=== PATIENT | female | born 1945 | race Caucasian/White ===

== ENCOUNTER 2019-10-18 10:59 | Emergency (ER) | payer MEDICARE, OTHER, SELFPAY ==
[2019-10-18 11:28] VITALS: BP 141/60; PULSE 95; RESP 19; TEMP 36.8; O2SAT 93; BMI 31.1
--- NOTE | 2019-10-18 11:36 | ED.LOWEXIN ---
HPI - Extremity Injury (Lower) General Chief Complaint: Extremity Injury, Lower Stated Complaint: Both ankles/ pain/ swollen Time Seen by Provider: 10/18/19 11:33 Source: patient and family Mode of arrival: Wheelchair Limitations: no limitations History of Present Illness HPI Narrative: 74-year-old female here for evaluation of bilateral lower extremity/ankle swelling. She states that yesterday she tripped while going down some stairs and rolled both of her ankles. They are swollen and discolored. Has broken her left ankle in the past. Was able to ambulate somewhat afterwards but since then she has not been able to secondary to pain. Has tried to ice her ankles. Is also use anti-inflammatories. Related Data Home Medications Medication Instructions Recorded Confirmed ALBUTEROL SULFATE (Ventolin / 1 - 2 puff INH PRN #0 05/27/10 Proventil) ASPIRIN (Aspirin Ec) 81 mg PO Q DAY #0 05/27/10 Atorvastatin Calcium (Lipitor) 40 mg PO HS #0 05/27/10 CALCIUM CARBONATE/VITAMIN D3 500 mg Q DAY #0 05/27/10 (Oyster Shell Calcium-Vit D Tab) CARVEDILOL (Coreg) 12.5 mg PO BID #0 05/27/10 CHOLECALCIFEROL (VITAMIN D3) 2,000 iu Q DAY #0 05/27/10 (Vitamin D3) Clopidogrel Hydrogen Sulfate 75 mg PO Q DAY #0 05/27/10 (Plavix) Conjugated Estrogens (Premarin) 0.625 mg PO Q DAY #0 05/27/10 DOCUSATE SODIUM (Colace / Jani) 240 mg PO BID #0 05/27/10 FENOFIBRATE (TRICOR) 160 mg HS #0 05/27/10 FOLIC ACID (Folate) 0.4 mg PO QDAY #0 05/27/10 HYDROCODONE/ACET 5/500 - 1 - 2 tab PO Q4-6H PRN #0 05/27/10 (Hydrocodon-Acetaminophen 5-500) IPRATROPIUM/ALBUTEROL SULFATE 2 puff INH PRN #0 05/27/10 (Combivent Inhaler) LISINOPRIL (Zestril / Prinivil) 5 mg PO BID #0 05/27/10 Lansoprazole (Prevacid) 30 mg BID #0 05/27/10 NITROGLYCERIN (Nitrostat) 0.4 mg SUBLINGUAL PRN #0 05/27/10 Niacin (Nicotinic Acid) 500 mg PO Q DAY #0 05/27/10 Nitroglycerin 2% - 0 gm TOPICAL * DOSE/FREQUENCY #0 05/27/10 (Nitrobid) Zinc Gluconate 50 mg PO Q DAY #0 05/27/10 Zolpidem Tartrate (Ambien) 10 mg PO HS #0 05/27/10 [FISH OIL OMEGA 3] BID #0 05/27/10 [PROBIOTIC ACIDIPHILU] Q DAY #0 05/27/10 [RELPAX] 40 mg PRN #0 05/27/10 [XOPENEX] #0 05/27/10 Allergies Allergy/AdvReac Type Severity Reaction Status Date / Time Sulfa (Sulfonamide Allergy Verified 10/18/19 13:23 Antibiotics) Review of Systems Constitutional Constitutional: Denies fever(s) Musculoskeletal Musculoskeletal: Denies tingling Comments: Bilateral ankle pain Integumentary/Breasts Comments: Bruising bilateral ankles and feet Neurologic Neurologic: Denies tingling Comments: Difficulty walking Hematologic/Lymphatic Hematologic/Lymphatic: Denies easy bleeding Allergic/Immunologic Allergic/Immunologic: Denies urticaria Patient History Medical History Hyperlipidemia (Acute) Social History Smoking Status: Never smoker Smoking Status: Never smoker alcohol intake frequency: a few times a month Substance Use Type: does not use Exam Initial Vital Signs Initial Vital Signs: Vital Signs Temperature 98.3 F 10/18/19 11:28 Pulse Rate 95 H 10/18/19 11:28 Respiratory Rate 19 10/18/19 11:28 Blood Pressure 141/60 H 10/18/19 11:28 Pulse Oximetry 93 10/18/19 11:28 Const General: cooperative and comfortable Cardio Pulses: dorsalis pedis present bilaterally Skin Other: Bruising bilateral ankles from mid foot to just proximal to the ankle lateral aspect Neuro Sensory Exam: no sensory deficits noted Extrem Other: Tenderness to palpation throughout bilateral ankles and also proximal fibula is bilaterally. Psych Appearance: grossly normal and well kempt Procedures Orthopedic Splinting/Casting Injury #1: Side: right Lower Extremity Injury Location: ankle Lower Extremity Immobilizer: posterior splint, stirrup splint and Pj wrap Other Orthopedic Equipment: other Post splinting neuro exam: intact Post splinting vascular exam: intact Placed by: Provider Course Orders Ordered: ED Orders 10/18/19 11:35 XR ankle LT min 3V Stat XR ankle RT min 3V Stat XR tibia fibula LT 2V Stat XR tibia fibula RT 2V Stat 10/18/19 12:43 XR ankle RT 2V Stat Discontinued Medications Hydrocodone Bitart/Acetaminophen ([place] 5/325) 1 tab PO NOW ONE Stop: 10/18/19 13:21 Last Admin: 10/18/19 13:24 Dose: 1 tab Documented by: BRIAN Vital Signs Vital signs: Vital Signs - 8 hr 10/18/19 11:28 Temperature 98.3 F Pulse Rate 95 H Respiratory Rate 19 Blood Pressure 141/60 H Pulse Oximetry 93 MDM - Extremity Injury (Lower) Imaging Data right tib fib: Radiologist's Impression: [address] [address] XRay Report Signed Patient: Madeline Rodriguez#: [id number] : 6Acct:[id number] Age/Sex: 74 / FDate of Service: 10/18/19 Loc: ED Accession Number: [id number] Procedure: XR tibia fibula RT 2V Ordering Provider: Roque Lizarraga D.O. PROCEDURE: XR TIBIA FUBULA RT 2V INDICATIONS: prox fibula tenderness after fall TECHNIQUE: 2 views of the tibia and fibula were acquired. COMPARISON: None. FINDINGS: Bones: Distal fibular fracture extending to the articular surface. No other fractures or dislocations. No suspicious bone lesions. Soft tissues: No suspicious soft tissue calcifications or masses. IMPRESSION: Distal right fibular fracture extending to the articular surface. Dictated by: Laith Hoffmann M.D. on 10/18/2019 at 12:28 Approved by: Laith Hoffmann M.D. on 10/18/2019 at 12:28 left tib fib: Radiologist's Impression: [address] [address] XRay Report Signed Patient: Madeline Rodriguez#: [id number] : 6Acct:[id number] Age/Sex: 74 / FDate of Service: 10/18/19 Loc: ED Accession Number: [id number] Procedure: XR tibia fibula LT 2V Ordering Provider: Roque Lizarraga D.O. PROCEDURE: XR TIBIA FIBULA RT 2V INDICATIONS: prox fibula tenderness after fall TECHNIQUE: 2 views of the tibia and fibula were acquired. COMPARISON: None. FINDINGS: Bones: No fractures or dislocations. No suspicious bony lesions. Question intra-articular body at the knee. Soft tissues: No suspicious soft tissue calcifications or masses. IMPRESSION: No evidence acute bony abnormality of the left tibia and fibula. If clinical suspicion and/or symptoms persist, further assessment with repeat plain films, or advanced imaging (e.g., CT, MRI, or bone scan) may be helpful for further assessment. Dictated by: Laith Hoffmann M.D. on 10/18/2019 at 12:24 Approved by: Laith Hoffmann M.D. on 10/18/2019 at 12:28 right ankle: Radiologist's Impression: [place] [address] XRay Report Signed Patient: Elena Rodriguez#: [id number] : 6Acct:[id number] Age/Sex: 74 / FDate of Service: 10/18/19 Loc: ED Accession Number: [id number] Procedure: XR ankle RT min 3V Ordering Provider: Roque Lizarraga D.O. PROCEDURE: XR ANKLE RT MIN 3V INDICATIONS: pain sweling after fall TECHNIQUE: 3 views of the ankle were acquired. COMPARISON: None. FINDINGS: Bones: Oblique, mildly comminuted, minimally displaced distal fibular fracture extending to the articular surface. No other fractures or dislocations. Ankle mortise is normally aligned. No suspicious bony lesions. Soft tissues: No tibiotalar joint effusion. Achilles tendon appears normal. IMPRESSION: Distal fibular fracture extending to articular surface Dictated by: Laith Hoffmann M.D. on 10/18/2019 at 12:28 Approved by: Laith Hoffmann M.D. on 10/18/2019 at 12:29 left ankle: Radiologist's Impression: [address] [address] XRay Report Signed Patient: Lou RodriguezMike#: [id number] : 6Acct:[id number] Age/Sex: 74 / FDate of Service: 10/18/19 Loc: ED Accession Number: [id number] Procedure: XR ankle LT min 3V Ordering Provider: Roque Lizarraga D.O. PROCEDURE: XR ANKLE LT MIN 3V INDICATIONS: pain swelling after fall TECHNIQUE: 3 views of the ankle were acquired. COMPARISON: None. FINDINGS: Bones: No fractures or dislocations. Ankle mortise is normally aligned. No suspicious bony lesions. Soft tissues: No tibiotalar joint effusion. Achilles tendon appears normal. Lateral soft tissue swelling. IMPRESSION: Lateral ankle sprain. No evidence acute bony abnormality of the left ankle. If clinical suspicion and/or symptoms persist, further assessment with repeat plain films, or advanced imaging (e.g., CT, MRI, or bone scan) may be helpful for further assessment. Dictated by: Laith Hoffmann M.D. on 10/18/2019 at 12:31 Approved by: Laith Hoffmann M.D. on 10/18/2019 at 12:32 R ankle stress views: Radiologist's Impression: [place] [address] XRay Report Signed Patient: Elena Rodriguez#: [id number] : 6At:[id number] Age/Sex: 74 / FDate of Service: 10/18/19 Loc: ED Accession Number: [id number] Procedure: XR ankle RT 2V Ordering Provider: Roque Lizarraga D.O. PROCEDURE: XR ANKLE RT 2V INDICATIONS: fibula fx TECHNIQUE: 3 views of the ankle were acquired. COMPARISON: [facility], , XR ANKLE LT MIN 3V, 10/18/2019, 11:44. FINDINGS: Bones: There is a mild fracture of the distal fibular extending to the tibiofibular syndesmosis. There is associated mild syndesmotic widening as well as mild widening of the medial ankle mortise. No suspicious bony lesions. Soft tissues: There is a suspected small tibiotalar joint effusion. Achilles tendon appears intact. IMPRESSION: 1. Mildly displaced fracture of the distal fibula with associated syndesmotic extension. 2. Mild widening of the tibiofibular syndesmosis and medial ankle mortise suggestive of ligamentous injury. Dictated by: Navin Caballero M.D. on 10/18/2019 at 13:25 Approved by: Navin Caballero M.D. on 10/18/2019 at 13:36 MDM Narrative Medical decision making narrative: Neurovascularly intact, right distal fibula fracture. Discussed the case with Dr. Spangler with Orthopedics who recommended placing the patient nonweightbearing in a splint due to the fact that the stress view show that there potentially is a ligamentous injured splint was placed this described above. Patient was given care instructions and return precautions. She expressed understanding and agreement. Discharge Plan Departure Patient Disposition: Home Clinical Impression: Fracture of right fibula Qualifiers: Encounter type: initial encounter Fibula location: distal Fracture type: closed Fracture morphology: unspecified fracture morphology Qualified Code(s): S82.831A - Other fracture of upper and lower end of right fibula, initial encounter for closed fracture Left ankle sprain Qualifiers: Encounter type: initial encounter Involved ligament of ankle: unspecified ligament Qualified Code(s): S93.402A - Sprain of unspecified ligament of left ankle, initial encounter Instructions: DI for Ankle Fracture, How to Take Care of Your Splint Activity Restrictions/Additional Instructions: There is no fracture on the x-rays of your left ankle. You can walk on this leg as needed. I do recommend you keep it elevated and iced. The x-rays do show that you fractured your fibula on the right. Recommend you contact your primary provider and also the [facility] Orthopedics Department at [phone] for follow-up. Return to the emergency department for any new or worsening symptoms. Prescriptions: No Action DOCUSATE SODIUM (Colace / Jani) 240 mg PO BID Qty: 0 RF: 0 Lansoprazole (Prevacid) 30 mg BID Qty: 0 RF: 0 Atorvastatin Calcium (Lipitor) 40 mg PO HS Qty: 0 RF: 0 CARVEDILOL (Coreg) 12.5 mg PO BID Qty: 0 RF: 0 Conjugated Estrogens (Premarin) 0.625 mg PO Q DAY Qty: 0 RF: 0 LISINOPRIL (Zestril / Prinivil) 5 mg PO BID Qty: 0 RF: 0 Clopidogrel Hydrogen Sulfate (Plavix) 75 mg PO Q DAY Qty: 0 RF: 0 FENOFIBRATE (TRICOR) 160 mg HS Qty: 0 RF: 0 Zolpidem Tartrate (Ambien) 10 mg PO HS Qty: 0 RF: 0 CALCIUM CARBONATE/VITAMIN D3 (Oyster Shell Calcium-Vit D Tab) 500 mg Q DAY Qty: 0 RF: 0 [FISH OIL OMEGA 3] BID Qty: 0 RF: 0 CHOLECALCIFEROL (VITAMIN D3) (Vitamin D3) 2,000 iu Q DAY Qty: 0 RF: 0 FOLIC ACID (Folate) 0.4 mg PO QDAY Qty: 0 RF: 0 Niacin (Nicotinic Acid) 500 mg PO Q DAY Qty: 0 RF: 0 Zinc Gluconate 50 mg PO Q DAY Qty: 0 RF: 0 ASPIRIN (Aspirin Ec) 81 mg PO Q DAY Qty: 0 RF: 0 [PROBIOTIC ACIDIPHILU] Q DAY Qty: 0 RF: 0 HYDROCODONE/ACET 5/500 - (Hydrocodon-Acetaminophen 5-500) 1 - 2 tab PO Q4-6H PRN Qty: 0 RF: 0 NITROGLYCERIN (Nitrostat) 0.4 mg Sublingual PRN Qty: 0 RF: 0 [RELPAX] 40 mg PRN Qty: 0 RF: 0 Nitroglycerin 2% - (Nitrobid) 0 gm Topical * [place] DOSE/FREQUENCY Qty: 0 RF: 0 [XOPENEX] Qty: 0 RF: 0 ALBUTEROL SULFATE (Ventolin / Proventil) 1 - 2 puff INH PRN Qty: 0 RF: 0 IPRATROPIUM/ALBUTEROL SULFATE (Combivent Inhaler) 2 puff INH PRN Qty: 0 RF: 0 Referrals: Nas Manriquez DO [Primary Care Provider] -
--- NOTE | 2019-10-18 12:43 | DI.RAD.S_ITS ---
PROCEDURE: XR ANKLE RT 2V INDICATIONS: fibula fx TECHNIQUE: 3 views of the ankle were acquired. COMPARISON: [facility], CR, XR ANKLE LT MIN 3V, 10/18/2019, 11:44. FINDINGS: Bones: There is a mild fracture of the distal fibular extending to the tibiofibular syndesmosis. There is associated mild syndesmotic widening as well as mild widening of the medial ankle mortise. No suspicious bony lesions. Soft tissues: There is a suspected small tibiotalar joint effusion. Achilles tendon appears intact. IMPRESSION: 1. Mildly displaced fracture of the distal fibula with associated syndesmotic extension. 2. Mild widening of the tibiofibular syndesmosis and medial ankle mortise suggestive of ligamentous injury. Dictated by: Navin Caballero M.D. on 10/18/2019 at 13:25 Approved by: Navin Caballero M.D. on 10/18/2019 at 13:36
[2019-10-18] MEDS: HYDROCODONE/ACET 5/325 TABLET 1 TAB PO (13:24)
[2019-10-18 14:14] VITALS: BP 120/66; PULSE 78; O2SAT 98
== END 2019-10-18 14:15 | disposition home or self-care (01) ==
PROVIDERS: Emergency Provider Emergency Medicine; PCP Family Medicine
DX: S82.831A Other fracture of upper and lower end of right fibula, initial encounter for closed fracture (principal); S93.402A Sprain of unspecified ligament of left ankle, initial encounter; W18.40XA Slipping, tripping and stumbling without falling, unspecified, initial encounter
CPT/HCPCS: 29515; 73590; 73600; 73610; 99283; 99284

== ENCOUNTER → 2019-10-30 15:43 | Outpatient (CLI) | payer MEDICARE, OTHER, SELFPAY ==
--- NOTE | 2019-10-30 15:50 | DI.RAD.S_ITS ---
PROCEDURE: XR ANKLE RT MIN 3V INDICATIONS: CLOSED FRACTUR OF RIGHT ANKLE, INTIAL ECOUNTER TECHNIQUE: 3 views of the ankle were acquired. COMPARISON: [facility], CR, XR ANKLE RT 2V, 10/18/2019, 12:48. FINDINGS: Bones: There is interval cast placement over right ankle which obscures bony details. Oblique fracture involving distal fibular shaft is seen with minimal lateral displacement at fracture site. No new fractures or dislocations. Ankle mortise is normally aligned. No suspicious bony lesions. Soft tissues: No tibiotalar joint effusion. Achilles tendon appears normal. IMPRESSION: Minimally displaced distal fibular shaft fracture with interval cast placement over right ankle and foot and near anatomic alignment. Dictated by: Jadon Rodriguez M.D. on 10/30/2019 at 16:33 Approved by: Jadon Rodriguez M.D. on 10/30/2019 at 16:35
== END ==
PROVIDERS: PCP Family Medicine; Referring Provider Orthopaedic Surgery Adult Reconstructive Orthopaedic Surgery; Visit Provider Orthopaedic Surgery Adult Reconstructive Orthopaedic Surgery
DX: S82.431A Displaced oblique fracture of shaft of right fibula, initial encounter for closed fracture (principal); X58.XXXA Exposure to other specified factors, initial encounter
CPT/HCPCS: 73610

== ENCOUNTER → 2020-01-16 11:01 | Outpatient (CLI) | payer MEDICARE, OTHER, SELFPAY ==
[2020-01-16 12:17] LABS: COVID19 -Nasal RAPID Negative (Negative)
== END ==
PROVIDERS: PCP Family Medicine; Visit Provider Registered Nurse
DX: Z01.812 Encounter for preprocedural laboratory examination (principal)
CPT/HCPCS: 87635

== ENCOUNTER 2020-01-16 11:17 | Outpatient (CLI) | payer MEDICARE, OTHER, SELFPAY ==
[2020-01-16] VITALS (8 sets, daily range): BP systolic 87–124; BP diastolic 49–78; PULSE 73–85; RESP 12–16; TEMP 36.6; O2SAT 94–99
--- NOTE | 2020-01-16 11:20 | DI.RAD.S_ITS ---
PROCEDURE: PAIN L/S FACET INJ/BLK 1ST BALJINDER COMPARISON: None. INDICATIONS: SPONDYLOSIS FINDINGS: Fluoroscopic spot filming was performed to verify placement of spinal needles at the L2, L3, L4 level(s), as labeled on the films. Appropriate location(s) of the needle tip(s) was confirmed by injection of iodinated contrast. Dictated by: Colby Lemons M.D. on 01/16/2020 at 15:36 Approved by: Colby Lemons M.D. on 01/16/2020 at 15:37
[2020-01-16] MEDS: BUPIVACAINE 0.5% (PF) VIAL 2 ML INJ (14:03)
[2020-01-16] MEDS: LIDOCAINE 1% 20 ML 10 ML INJ (14:04)
[2020-01-16] MEDS: IOPAMIDOL 15 ML VIAL 3 ML INJ (14:04)
[2020-01-16] MEDS: MIDAZOLAM 5 MG/5 ML VIAL IV (14:05)
[2020-01-16] MEDS: fentaNYL 100 MCG/2 ML INJ 50 MCG IV (14:05)
--- NOTE | 2020-01-16 14:21 | PM.PROC.1 ---
Procedures Date/Time Date of procedure: 01/16/20 Time of procedure: 14:21 General Procedure description: POST OP DIAGNOSIS 1. FACET ARTHROPATHY PROCEDURES 1. BILATERAL L2, L3, L4 DIAGNOSTIC MB BLOCKS PHYSICIAN: Gama Lechuga, DO HAQUE Elena is referred by Dr. Manriquez for treatment of Bilateral Axial LBP. DESCRIPTION OF PROCEDURE Fluoroscopically guided, contrast-controlled bilateral L2, L3, L4 medial branch blocks with 0.5cc of 0.5% Marcaine. Following review of allergy and review of potential side effects and complications, including, but not necessarily limited to, infection, allergic reaction, local tissue breakdown, nerve injury, paralysis, stroke and possible , the patient indicated that the patient understood and agreed to proceed. An informed consent document was signed by the patient, witnessed by a nurse, and placed in the patient's chart. After review of previous anaesthesic history and IV conscious sedation the patient was deemed safe to proceed with todays procedure with IV conscious sedation as ASA class II designation. Safety time-out was performed to confirm patient ID, procedure to be performed and site of procedure. IV sedation was accomplished with a combination of 1mg of Versed and 50mcg of Fentantyl was administered by the RN after DO order, titrated to patient comfort during the course of the procedure while the patient remained responsive to all verbal commands In the prone position, following sterile prep and drape of the lumbar region, the right L2, L3, L4 anatomical location of the medial branch of the dorsal ramus was identified fluoroscopically. Subsequently an anesthetic skin wheal using 1% lidocaine solution was initiated at each of the anatomical spots. Subsequently then a 22-gauge 3.5-inch spinal needle was atraumatically introduced and advanced under fluoroscopic guidance at each of the corresponding sites at the right L2, L3, L4 MB. After negative aspiration, 0.2cc of Isovue 200 was injected, confirming placement without vascular or intrathecal uptake. Subsequently then 0.5cc of 0.5% Marcaine solution was injected at each of the corresponding sites at the right L2, L3, L4 medial branch locations. The identical procedure was replicated on the left. The patient tolerated the procedure well without signs or symptoms of complications. The patient tolerated the procedure well without signs or symptoms of complications prior to transfer to the recovery area continued monitoring without incident. Post-procedure, the patient was monitored initiating provocative activities to measure the amount of relief from block of the facetogenic pain. The patient reported a VAS of 7 prior to the procedure and a post-procedure VAS of 1. It has been a pleasure to assist in the diagnostic and therapeutic care of your patient. Total Fluoroscopy Time: 11 seconds Total Conscious Sedation Time: 24 min POST OP INSTRUCTIONS The patient was provided with a Pain Log to complete over the next several hours and subsequent days prior to the patient's follow up with the ordering physician. If the patient has tax credit leasing consultant relief to the solution applied, then they may be a candidate for medial branch rhizotomy. The patient is aware, was provided, once again, with a Pain Log and will follow up with the referring physician for review and clinical correlation Gama Lechuga DO Complications: none
--- NOTE | 2020-01-16 14:44 | PC.NURSE ---
tolerated procedure well, max assist from table to wchr r/t bilateral leg numbness, transported to pre proc room via wc. Monitoring resumed by PAMELA Segovia
== END 2020-01-16 14:40 | disposition home or self-care (01) ==
PROVIDERS: PCP Family Medicine; Referring Provider Physical Medicine & Rehabilitation; Visit Provider Physical Medicine & Rehabilitation
DX: M47.816 Spondylosis without myelopathy or radiculopathy, lumbar region (principal); M54.5 Low back pain
CPT/HCPCS: 64493; 64494; 99152; J2250; J3010

== ENCOUNTER → 2020-05-15 11:31 | Outpatient (CLI) | payer MEDICARE, OTHER, SELFPAY ==
--- NOTE | 2020-05-15 11:33 | DI.RAD.S_ITS ---
PROCEDURE: XR LUMBAR SPINE MIN 4V INDICATIONS: acute LBP s/p fall TECHNIQUE: 5 views of the lumbar spine were acquired. COMPARISON: [facility], XA, PAIN L/S FACET INJ/BLK 1ST BALJINDER, 01/16/2020, 13:00. FINDINGS: Bones: 5 nonrib-bearing vertebrae are present. There mild dextrocurvature of the mid lumbar spine. There is multilevel lumbar spondylosis throughout the imaged spine with associated facet arthropathy most pronounced in the lower lumbar spine.. No acute vertebral body compression fractures. No suspicious bony lesions. Soft tissues: Overlying bowel gas pattern is normal. No suspicious soft tissue calcifications. Oblique images: No pars defects. IMPRESSION: Lumbar spine without acute osseous abnormalities. Multilevel lumbar spondylosis most pronounced in the lower lumbar spine. Dictated by: Stephen Hart M.D. on 05/15/2020 at 15:46 Approved by: Stephen Hart M.D. on 05/15/2020 at 15:54
== END ==
PROVIDERS: PCP Family Medicine; Referring Provider Family Medicine; Visit Provider Physical Medicine & Rehabilitation
DX: M47.816 Spondylosis without myelopathy or radiculopathy, lumbar region (principal); M51.26 Other intervertebral disc displacement, lumbar region; M41.80 Other forms of scoliosis, site unspecified
CPT/HCPCS: 72110; 99214

== ENCOUNTER → 2020-05-18 08:50 | Outpatient (CLI) | payer MEDICARE, OTHER, SELFPAY ==
[2020-05-20 06:00] LABS: COVID19 Sendout Not Detected (Not Detect)
== END ==
PROVIDERS: PCP Family Medicine; Visit Provider Physician Assistant
DX: Z01.812 Encounter for preprocedural laboratory examination (principal)
CPT/HCPCS: 87635

== ENCOUNTER 2020-05-21 07:12 | Outpatient (CLI) | payer MEDICARE, OTHER, SELFPAY ==
[2020-05-21] VITALS (14 sets, daily range): BP systolic 114–180; BP diastolic 56–81; PULSE 76–85; RESP 10–17; O2SAT 95–100
--- NOTE | 2020-05-21 07:13 | DI.RAD.S_ITS ---
PROCEDURE: PAIN L/S MED/LAT N RFA BILAT INDICATIONS: SPONDYLOSIS COMPARISON: None. FINDINGS: Fluoroscopic spot filming was performed to verify placement of spinal needles at the bilateral L2, L3, and L4 level(s), as labeled on the films. Appropriate location(s) of the needle tip(s) was confirmed by injection of iodinated contrast. IMPRESSION: Successful bilateral needle tip localizations, 6 total procedures, for bilateral L2, L3, and L4 medial branch blocks. Dictated by: Vincent Geronimo M.D. on 05/21/2020 at 9:53 Approved by: Vincent Geronimo M.D. on 05/21/2020 at 9:54
[2020-05-21] MEDS: fentaNYL 100 MCG/2 ML INJ 50 MCG IV (08:25)
[2020-05-21] MEDS: MIDAZOLAM 5 MG/5 ML VIAL IV (08:53)
[2020-05-21] MEDS: LIDOCAINE 1% 20 ML 10 ML INJ (09:04)
[2020-05-21] MEDS: BUPIVACAINE 0.5% (PF) VIAL 5 ML INJ (09:04)
--- NOTE | 2020-05-21 09:12 | P.PCN_ITS ---
Date/Time/Diagnoses Date of procedure: 05/21/20 Time of procedure: 09:12 Pre-procedure diagnosis: 1. RECALCITRANT FACET ARTHROPATHY Post-procedure diagnosis: same Procedure Notes Procedure: 1. BILATERAL L2, L3, L4 MEDIAL BRANCH RADIOFREQUENCY NEUROTOMY Indications: Elena is referred by Dr. Manriquez for treatment of facet arthropathy. Physician: Gama Lechuga Total Fluoroscopy time (seconds): 27 Total sedation minutes: 31 Complications: none Procedure in detail & Post-procedure care: DESCRIPTION OF PROCEDURE Bilateral L3, L4 and L5 medial branch radiofrequency neurotomy The patient is well known to this clinic having undergone previous facet injections with good but temporary relief. The patient has experienced appropriate, concordant relief with previous facet and median branch blocks but the patient's pain has been recalcitrant to further conservative measures. Therefore, based upon the patient's relief and persistent symptoms, the patient is considered an appropriate candidate for facet rhizotomy. All of the patient's questions regarding the risks versus benefits of the procedure, including, but not limited to, bleeding, infection, temporary as well as lasting nerve injury, paralysis, stroke, and , as well treatment alternatives were answered to satisfaction. After obtaining informed consent, denial of pertinent drug allergies, as well as being made aware of the potential risks of bleeding, infection, spinal cord trauma, paralysis, temporary and permanent nerve damage, seizure, stroke, and possible , the patient was brought to the fluoroscopy suite and positioned prone on the fluoroscopy table. The lumbar region was prepped with Chlorhexadine and covered with a fenestrated drape in the usual sterile fashion. Appropriate monitors applied including pulse oximeter, pulse, and blood pressure for regular monitoring throughout the procedure. After review of previous anaesthesic history and IV conscious sedation the patient was deemed safe to proceed with today's procedure with IV conscious sedation as ASA class II designation. Safety time-out was performed to confirm patient ID, procedure to be performed and site of procedure. IV sedation was accomplished with a combination of 4mg of Versed and 50mcg of Fentanyl administered by the RN after DO order, titrated to patient comfort during the course of the procedure while the patient remained responsive to all verbal commands. After local infiltration using 1% lidocaine, under fluoroscopic guidance, a 10- cm RF insulated needle with a 10-mm active tip was positioned parallel to the junction of the right the superior articulating process where the L4 medial branch resides. Needle placement was confirmed with motor stimulation of .5v on the right which produced local stimulation without radicular component. The stimulation was then increased to 2v with, once again, only local multifidus stimulation without radicular component. The needle was then removed and the identical procedure was performed along the length of the right L3 medial branch with motor stimulation at .7v on the right. The identical procedure was once again performed along the length of the right L2 and medial branch with motor stimulation of .5v on the right. The medial branches were then anesthetised with 0.5% marcaine. This was then followed by two discreet lesions performed at 80 degrees Celsius for 90 seconds each. The identical procedures were repeated on the left. The patient tolerated the procedure well without signs or symptoms of complications prior to transfer to the recovery area continued monitoring without incident. The patient was then transferred to the recovery area where they were observed for an appropriate period of time after the injection. The patient reported a VAS score of 9 prior to the procedure and a post-procedure VAS of 0. POST OP INSTRUCTIONS The patient was provided a Pain Log to continue to record the patient's response to the target-specific procedure prior to the patient's follow-up visit with the referring physician. Additionally, specific post-injection care instructions and a contact number to our office were provided if concerns arise regarding possible complications associated with the procedure are suspected.
== END 2020-05-21 09:28 | disposition home or self-care (01) ==
PROVIDERS: PCP Family Medicine; Referring Provider Family Medicine; Visit Provider Physical Medicine & Rehabilitation
DX: M47.816 Spondylosis without myelopathy or radiculopathy, lumbar region (principal)
CPT/HCPCS: 64635; 64636; 99152; 99153; J2250; J3010

== ENCOUNTER → 2020-07-08 11:35 | Outpatient (CLI) | payer MEDICARE, OTHER, SELFPAY ==
[2020-07-08 12:54] LABS: BUN Creatinine Ratio 21.6 (6-22); Blood Urea Nitrogen 19 mg/dL (7-17); Estimated Glomerular Filt Rate > 60.0 mL/min (>60)
== END ==
PROVIDERS: PCP Family Medicine; Referring Provider Otolaryngology; Visit Provider Otolaryngology
DX: K11.8 Other diseases of salivary glands (principal); E04.1 Nontoxic single thyroid nodule
CPT/HCPCS: 82565; 84520

== ENCOUNTER → 2020-07-16 08:42 | Outpatient (CLI) | payer MEDICARE, OTHER, SELFPAY ==
--- NOTE | 2020-07-16 08:51 | DI.CT.S_ITS ---
PROCEDURE: CT SOFT TISSUE NECK W CON INDICATIONS: Other diseases of salivary glands TECHNIQUE: After the administration of intravenous contrast, 3.0 mm axial sections acquired from the sella to the aortic arch. Additional oblique axial 3.0 mm sections acquired through the pharynx. 3 mm thick coronal and sagittal reformats were generated. For radiation dose reduction, the following was used: automated exposure control. COMPARISON: Outside Film, US, US THYROID, 05/07/2020, 12:00. FINDINGS: Image quality: Excellent. Lymph nodes: No threshold enlarged lymph node in the neck or overtly pathologic appearing lymph nodes in the neck. Vessels: Visualized vasculature appears patent. Neck spaces: The oropharynx, nasopharynx, and pharynx demonstrate no mucosal lesions. The vocal cords, false vocal cords, pyriform sinuses, epiglottis, vallecula, and tongue base all appear normal. Extramucosal spaces appear unremarkable. Glands: Multiple bilateral thyroid nodules are re-demonstrated, better seen on the comparison ultrasound. These most likely represent true thyroid nodules, although the posterior nodules may represent parathyroid adenomas in the appropriate clinical setting. There is no obvious extra glandular extension of the nodules by CT. 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 Parotid and submandibular glands are otherwise unremarkable. Miscellaneous: Visualized brain and orbits appear normal. Lung apices appear clear. Superficial soft tissues appear normal. Bones: No suspicious bony lesions. Visualized sinuses and mastoids appear unremarkable. IMPRESSION: Multiple bilateral thyroid lobe nodules, none significantly changed from recent thyroid ultrasound. Right parotid gland mass also unchanged from May 2020 ultrasound. No lymphadenopathy in the neck. Dictated by: Jeffrey Leon M.D. on 07/16/2020 at 8:51 Approved by: Jeffrey Leon M.D. on 07/16/2020 at 8:58
== END ==
PROVIDERS: PCP Family Medicine; Referring Provider Family Medicine; Visit Provider Otolaryngology
DX: K11.8 Other diseases of salivary glands (principal); E04.2 Nontoxic multinodular goiter; R22.1 Localized swelling, mass and lump, neck
CPT/HCPCS: 70491; Q9967

== ENCOUNTER 2021-03-27 17:52 | Observation (INO) | payer MEDICARE, OTHER, SELFPAY ==
[2021-03-27] VITALS (16 sets, daily range): BP systolic 118–181; BP diastolic 57–112; PULSE 72–99; RESP 16–41; TEMP 36.9; O2SAT 95–99; BMI 30.6
--- NOTE | 2021-03-27 18:06 | DI.RAD.S_ITS ---
PROCEDURE: XR CHEST 1V INDICATIONS: chest pain TECHNIQUE: One view of the chest was acquired. COMPARISON: None. FINDINGS: Surgical changes and devices: None. Lungs and pleura: Minimal left basilar atelectasis and infiltrate Mediastinum: Mediastinal contours appear normal. Heart size is normal. Bones and chest wall: No suspicious bony lesions. Overlying soft tissues appear unremarkable. IMPRESSION: Minimal left basilar atelectasis and infiltrate Approved by: Daniel Mcclendon M.D. on 03/27/2021 at 17:52
[2021-03-27 18:31] LABS: Hematocrit 42.9 % (36-46); Hemoglobin 14.2 g/dL (12.0-16.0); Mean Corpuscular Hemoglobin 29.2 PG (26-34); Mean Corpuscular Volume 88.4 fL (80-100); Platelet Count 306 X10^3/uL (150-400); Red Blood Cell Count 4.85 X10^6/uL (4.0-5.2); Red Cell Distribution Width 12.8 % (11.6-14.8); White Blood Cell Count 19.2 X10^3/uL (4.5-11.0)
[2021-03-27 18:32] LABS: Add Manual Diff / Slide Review YES
[2021-03-27 18:38] LABS: Prothrombin Time 11.2 SECONDS (10.1-12.7)
[2021-03-27 18:41] LABS: PTT Partial Thromboplastin Tim 30 SECONDS (26.4-36.2)
[2021-03-27 18:43] LABS: Alanine Aminotransferase 35 IU/L (<35); Albumin 4.3 g/dL (3.5-5.0); Albumin Globulin Ratio 1.4 (1.0-2.8); Alkaline Phosphatase 70 U/L (38-126); Aspartate Aminotransferase 36 IU/L (14-36); BUN Creatinine Ratio 27.4 (6-22); Bilirubin Total 0.3 mg/dL (0.2-1.3); Blood Urea Nitrogen 23 mg/dL (7-17); Calcium 10.4 mg/dL (8.4-10.2); Carbon Dioxide 28 mmol/L (22-32); Chloride 95 mmol/L (98-107); Creatine Kinase 24 U/L (30-135); Estimated Glomerular Filt Rate > 60.0 mL/min (>60); Glucose 467 mg/dL (80-110); HEMOLYSIS < 15 (0-50); Lipase 45 U/L (23-300); Magnesium 1.4 mg/dL (1.6-2.3); Potassium 4.4 mmol/L (3.4-5.1); Sodium 131 mmol/L (137-145); Total Protein 7.3 g/dL (6.3-8.2)
--- NOTE | 2021-03-27 18:53 | ED.GENADULT ---
HPI - General Adult General Chief complaint: Diabetic Problem Stated complaint: BLOOD SUGAR 429 Time Seen by Provider: 03/27/21 18:14 History of Present Illness HPI narrative: 75-year-old female nonsmoker with extensive cardiac history, hypertension, hyperlipidemia, CLL being managed by observation only, seizures presents with her in the chief complaint of feeling unwell for about the past week or so. She states that she has had fatigue, poor appetite frequent urination and her suggested she check her blood sugar as he is a diabetic. They found her blood sugar to be elevated over 400 and called their PCP who encouraged follow-up into the emergency department. She has had no fever or chills. She denies runny nose, sore throat or cough. She did have 1 episode of chest pain that was resolved with nitro, she states she has angina a few times a week which is resolved by nitro. She denies nausea, vomiting or diarrhea nor abdominal pain. She does, however, admit to a decreased appetite over this time frame. She denies any medication or dietary change. Related Data Home Medications Medication Instructions Recorded Confirmed ALBUTEROL SULFATE (Ventolin / 1 - 2 puff INH PRN #0 05/27/10 03/28/21 Proventil) ASPIRIN (Aspirin Ec) 81 mg PO Q DAY #0 05/27/10 03/28/21 Atorvastatin Calcium (Lipitor) 40 mg PO HS #0 05/27/10 03/28/21 IPRATROPIUM/ALBUTEROL SULFATE 2 puff INH PRN PRN #0 05/27/10 03/28/21 (Combivent Inhaler) LISINOPRIL (Zestril / Prinivil) 20 mg PO BID #0 05/27/10 03/28/21 NITROGLYCERIN (Nitrostat) 0.4 mg SUBLINGUAL PRN PRN #0 05/27/10 03/28/21 docusate calcium 240 mg capsule 240 mg PO TID 12/18/19 03/28/21 fenofibrate nanocrystallized 145 145 mg PO DAILY tab 12/18/19 03/28/21 mg tablet gabapentin 600 mg tablet 600 mg PO TID 12/18/19 03/28/21 levetiracetam 500 mg tablet 1,250 mg PO BID 12/18/19 03/28/21 (Keppra) metoprolol succinate 25 mg 25 mg PO DAILY 12/18/19 03/28/21 tablet,extended release 24 hr (Toprol XL) ondansetron HCl 4 mg tablet 8 mg PO Q8H PRN 12/18/19 03/28/21 (Zofran) venlafaxine 75 mg capsule,extended 150 mg PO BEDTIME 12/18/19 03/28/21 release 24 hr cholecalciferol (vitamin D3) 250 250 mcg PO DAILY 05/15/20 03/28/21 mcg (10,000 unit) capsule lansoprazole 30 mg capsule,delayed 30 mg PO BID cap 08/05/20 03/28/21 release tramadol 50 mg tablet 50 mg PO TID 03/28/21 03/28/21 Allergies Allergy/AdvReac Type Severity Reaction Status Date / Time Penicillins Allergy Unknown Verified 03/21/21 09:59 Sulfa (Sulfonamide Allergy Verified 03/21/21 09:59 Antibiotics) duloxetine [From Cymbalta] AdvReac Intermediate rash Verified 03/21/21 09:59 omeprazole [From Prilosec] AdvReac Intermediate rash Verified 03/21/21 09:59 erythromycin base AdvReac rash Verified 03/21/21 09:59 Review of Systems Review of Systems Narrative: GENERAL: See HPI HEENT: Denies sinus pain, ear pain, sore throat, difficulty swallowing, dizziness. RESPIRATORY: Denies dyspnea, cough, wheezing, hemoptysis, sputum. CARDIOVASCULAR: Denies chest pain, palpitations, orthopnea, edema, GASTROINTESTINAL: Denies nausea, vomiting, abdominal pain, diarrhea, constipation, melena. : Denies dysuria, frequency, incontinence, hematuria, urinary retention. MUSCULOSKELETAL: denies weakness, joint pain, or bony pain SKIN: Denies rash, skin lesions, or other NEUROLOGIC: Denies weakness, headache, numbness, change in speech, confusion, seizures, incoordination. PSYCHIATRIC: No concerning psychosocial issues. 12 point review of systems is negative except for those stated above Patient History Medical History (Updated 03/28/21 @ 04:21 by Eva Vidal RN) Ankle fracture Bilateral occipital neuralgia Cervical stenosis of spinal canal Cervicogenic headache CLL (chronic lymphocytic leukemia) Facet arthropathy, cervical Facet arthropathy, lumbar FH: cholecystectomy Herniated nucleus pulposus, C6-7 Herniated nucleus pulposus, L3-4 left Hyperlipidemia Occipital neuralgia of left side Scoliosis due to degenerative disease of spine in adult patient Surgical History H/O: hysterectomy Hx of appendectomy Family History Father Hypertension COPD (chronic obstructive pulmonary disease) Alzheimer disease Heart disease Mother Multiple sclerosis Heart disease Hypertension Grandmother Heart disease Social History household members: spouse Smoking Status: Never smoker Smoking Status: Never smoker alcohol intake frequency: a few times a month Substance Use Type: does not use Exam Narrative Exam Narrative: GENERAL: [75] year old patient appears stated age. Well-developed patient, in mild distress. HEAD: Atraumatic. Normocephalic. EYES: Pupils equal round and reactive. Extraocular motions intact. No scleral icterus. No injection or drainage. ENT: Nose without bleeding, purulent drainage. Throat without erythema, tonsillar hypertrophy or exudate. Airway patent. NECK: Trachea midline. Non tender CARDIOVASCULAR: Regular rate and rhythm without murmurs, gallops, or rubs. RESPIRATORY: Clear to auscultation. Breath sounds equal bilaterally. No wheezes, rales, or rhonchi. GASTROINTESTINAL: Abdomen soft, non-tender, nondistended. EXTREMITIES: No edema or joint tenderness. BACK: Nontender without deformity or crepitance. No flank tenderness. NEURO: AOx3. SKIN: No rash or erythema of visible areas Initial Vital Signs Initial Vital Signs: Vital Signs Pulse Rate 91 H 03/27/21 17:56 Pulse Oximetry 95 03/27/21 17:56 Course Course Course Narrative: Patient given 1 L fluid, labs rechecked blood sugar has come down some. I have discussed with primary care provider on-call this evening who will write orders, we are currently boarding as there are no beds in house. Orders Ordered: Acetaminophen (Acetaminophen 325 Mg Tablet) 650 mg PO Q6HR PRN PRN Reason: Fever/Mild Pain (1-3) Last Admin: 03/28/21 17:02 Dose: 650 mg Documented by: Admin: 03/28/21 00:37 Dose: 650 mg Documented by: JAY Albuterol (Albuterol 2.5 Mg/3 Ml Neb (Adult)) 2.5 mg INH Q4H PRN PRN Reason: Wheezing Aspirin (Aspirin Ec 81 Mg Tablet) 81 mg PO DAILY [facility] Atorvastatin Calcium (Atorvastatin 20 Mg Tablet) 40 mg PO BEDTIME [facility] Last Admin: 03/28/21 21:02 Dose: 40 mg Documented by: JAMAAL Dextrose (Dextrose 50 % In Water 25 Gm/50 Ml Syringe) 25 gm IV PRN PRN PRN Reason: Hypoglycemia Docusate Sodium (Docusate 100 Mg Capsule) 200 mg PO TID [facility] Last Admin: 03/28/21 21:04 Dose: 200 mg Documented by: JAMAAL Enoxaparin Sodium (Enoxaparin 40 Mg/0.4 Ml Syringe) 40 mg SUBCUT DAILY [facility] Last Admin: 03/28/21 09:15 Dose: 40 mg Documented by: ALEX Fenofibrate (Fenofibrate, Micronized 67 Mg Capsule) 201 mg PO BEDTIME [facility] Last Admin: 03/28/21 21:04 Dose: 201 mg Documented by: JAMAAL Gabapentin (Gabapentin 600 Mg Tablet) 600 mg PO TID [facility] Last Admin: 03/28/21 21:04 Dose: 600 mg Documented by: JAMAAL Ibuprofen (Ibuprofen 600 Mg Tablet) 600 mg PO Q6HR PRN PRN Reason: Fever/Mild Pain (1-3) Last Admin: 03/28/21 17:02 Dose: 600 mg Documented by: Admin: 03/28/21 00:37 Dose: 600 mg Documented by: JAY Insulin Glargine (Insulin Glargine 100 Unit/Ml 3ml Pen) 30 unit SUBCUT 0800 [facility] Last Admin: 03/28/21 09:15 Dose: 30 unit Documented by: ALEX Cosigned by: ZOHRA Insulin Human Lispro (Insulin Lispro 100 Unit/Ml 3ml Vial) 0 unit SUBCUT ACHS [facility]; Protocol Last Admin: 03/28/21 21:04 Dose: Not Given Documented by: Admin: 03/28/21 16:57 Dose: Not Given Documented by: Admin: 03/28/21 12:23 Dose: Not Given Documented by: ALEX Insulin Human Lispro (Insulin Lispro 100 Unit/Ml 3ml Vial) 10 unit SUBCUT AC [facility] Last Admin: 03/28/21 17:03 Dose: 10 unit Documented by: JESS Cosigned by: SHERICE Admin: 03/28/21 12:24 Dose: 10 unit Documented by: ALEX Cosigned by: ZOHRA Ipratropium [place] (Ipratropium 0.5 Mg/2.5 Ml Neb) 0.5 mg INH Q2H PRN PRN Reason: Shortness Of Breath Levetiracetam (Levetiracetam 250 Mg Tablet) 1,250 mg PO BID [facility] Last Admin: 03/28/21 21:03 Dose: 1,250 mg Documented by: Admin: 03/28/21 12:52 Dose: 1,250 mg Documented by: ALEX Lisinopril (Lisinopril 20 Mg Tablet) 20 mg PO BID [facility] Last Admin: 03/28/21 21:04 Dose: 20 mg Documented by: JAMAAL Metoprolol Succinate (Metoprolol Er 25 Mg Tablet) 25 mg PO DAILY [facility] Naloxone HCl (Naloxone 0.4 Mg/Ml Vial) 0.2 mg IV Q2MIN PRN PRN Reason: Opiate Reversal Ondansetron HCl (Ondansetron 4 Mg/2 Ml Inj) 4 mg IV Q8HR PRN PRN Reason: Nausea And Vomiting Last Admin: 03/28/21 21:20 Dose: 4 mg Documented by: Admin: 03/28/21 09:25 Dose: 4 mg Documented by: ALEX Ondansetron HCl (Ondansetron 4 Mg Odt) 8 mg PO Q8H PRN PRN Reason: Angina Last Admin: 03/28/21 17:03 Dose: 8 mg Documented by: JESS Pantoprazole Sodium (Pantoprazole Dr 40 Mg Tablet) 40 mg PO BID [facility] Last Admin: 03/28/21 21:04 Dose: 40 mg Documented by: Admin: 03/28/21 09:16 Dose: 40 mg Documented by: ALEX Venlafaxine HCl (Venlafaxine Er 75 Mg Cap) 150 mg PO BEDTIME [facility] Last Admin: 03/28/21 21:03 Dose: 150 mg Documented by: JAMAAL Vitamin D (Cholecalciferol (Vitamin D3) 5,000 Unit Tablet) 10,000 unit PO DAILY [facility] Discontinued Medications Albuterol (Albuterol Hfa Mdi 60 Puff/8 Gm Inhaler) 2 puff INH RTQ4HR PRN PRN Reason: wheezing Sodium Chloride (Normal Saline 0.9%) 1,000 mls @ 1,000 mls/hr IV BOLUS ONE Stop: 03/27/21 19:53 Last Infusion: 03/27/21 21:32 Dose: 0 mls/hr Documented by: Admin: 03/27/21 19:20 Dose: 1,000 mls/hr Documented by: JAY Magnesium Sulfate (Magnesium Sulfate) 2 gm in 50 mls @ 25 mls/hr IV NOW ONE Stop: 03/27/21 20:53 Last Infusion: 03/27/21 21:06 Dose: 0 mls/hr Documented by: JAY Cosigned by: CYNTHIA Admin: 03/27/21 19:21 Dose: 25 mls/hr Documented by: JAY Heardigned by: MARYAM Sodium Chloride (Normal Saline 0.9%) 1,000 mls @ 125 mls/hr IV CONT [facility] Last Infusion: 03/28/21 00:54 Dose: 125 mls/hr Documented by: Admin: 03/27/21 21:32 Dose: 125 mls/hr Documented by: JAY Potassium Chloride 20 meq/ (Dextrose/Sodium Chloride) 1,010 mls @ 250 mls/hr IV CONT [facility] Last Admin: 03/28/21 00:21 Dose: Not Given Documented by: JAY INSULIN DRIP PREMIX (Myxredlin Drip Premix) 100 unit in 100 mls @ 3.674 mls/hr IV TITRATE [facility]; Protocol Last Titration: 03/28/21 12:08 Dose: 0 unit/kg/hr, 0 mls/hr Documented by: ALEX Cosigned by: ZOHRA Titration: 03/28/21 08:30 Dose: 0.04 unit/kg/hr, 3 mls/hr Documented by: ALEX Cosigned by: ALTAFANNIF Titration: 03/28/21 07:30 Dose: 0.1 unit/kg/hr, 7 mls/hr Documented by: AELX Moralez by: ALTAFANNIF Titration: 03/28/21 05:05 Dose: 0.04 unit/kg/hr, 3 mls/hr Documented by: WWENDT Cosigned by: EVANGELINA Titration: 03/28/21 03:15 Dose: 0.03 unit/kg/hr, 2 mls/hr Documented by: JAY Cosigned by: JENI Titration: 03/28/21 02:00 Dose: 0.03 unit/kg/hr, 2 mls/hr Documented by: JAY Cosigned by: JENI Admin: 03/27/21 23:55 Dose: 0.05 unit/kg/hr, 3.674 mls/hr Documented by: JAY Cosigned by: CYNTHIA POTASSIUM CHLORIDE IN WATER (Potassium Cl 10 Meq/100 Ml Kristie) 10 meq in 100 mls @ 100 mls/hr IV Q1H [facility] Stop: 03/28/21 01:44 Last Infusion: 03/28/21 02:45 Dose: 50 mls/hr Documented by: Admin: 03/28/21 01:00 Dose: 100 mls/hr Documented by: Infusion: 03/28/21 00:50 Dose: 100 mls/hr Documented by: Admin: 03/27/21 23:50 Dose: 100 mls/hr Documented by: JAY Dextrose/Sodium Chloride (Dextrose 5%-0.45% Ns) 1,000 mls @ 150 mls/hr IV CONT [facility] Last Infusion: 03/28/21 12:07 Dose: 0 mls/hr Documented by: Admin: 03/28/21 07:56 Dose: 150 mls/hr Documented by: Infusion: 03/28/21 07:30 Dose: 150 mls/hr Documented by: Infusion: 03/28/21 03:13 Dose: 150 mls/hr Documented by: Admin: 03/28/21 00:50 Dose: 150 mls/hr Documented by: JAY Insulin Glargine (Insulin Glargine 100 Unit/Ml 3ml Pen) 25 unit SUBCUT 0800 [facility] Last Admin: 03/28/21 11:09 Dose: Not Given Documented by: ALEX Levetiracetam (Levetiracetam 250 Mg Tablet) 500 mg PO BID [facility] Last Admin: 03/28/21 13:02 Dose: Not Given Documented by: Admin: 03/27/21 23:48 Dose: 500 mg Documented by: JAY Non-Formulary Medication (Albuterol Sulfate (Ventolin / Proventil)) 2 puff INH PRN [facility] Last Admin: 03/28/21 00:21 Dose: Not Given Documented by: JAY Non-Formulary Medication (Lansoprazole) 30 mg PO BID [facility] Vital Signs Vital signs: Vital Signs - 8 hr 03/27/21 17:56 03/27/21 18:00 03/27/21 18:02 Temperature 98.5 F Pulse Rate 91 H 91 H 99 H Respiratory Rate 16 Blood Pressure 127/88 Pulse Oximetry 95 96 95 03/27/21 18:30 03/27/21 18:54 03/27/21 19:00 Temperature Pulse Rate 86 83 79 Respiratory Rate 21 20 20 Blood Pressure 127/81 121/68 118/70 Pulse Oximetry 96 96 96 Medical Decision Making Lab Data Result diagrams: 03/28/21 04:45 03/28/21 04:45 Labs: Lab Results 03/27/21 03/27/21 03/27/21 Range/Units 18:15 18:15 18:15 WBC 19.2 H (4.5-11.0) X10^3/uL RBC 4.85 (4.0-5.2) X10^6/uL Hgb 14.2 (12.0-16.0) g/dL Hct 42.9 (36-46) % MCV 88.4 (80-100) fL MCH 29.2 (26-34) PG MCHC 33.0 (30-36) % RDW 12.8 (11.6-14.8) % Plt Count 306 (150-400) X10^3/uL Neut % (Auto) Not Reportable Lymph % (Auto) Not Reportable [place] % (Auto) Not Reportable Eos % (Auto) Not Reportable Baso % (Auto) Not Reportable Lymph # (Auto) Not Reportable [place] # (Auto) Not Reportable Baso # (Auto) Not Reportable Total Counted 100 Seg Neutrophils % 36.0 L (38-70) % Lymphocytes % (Manual) 47.0 H (25-45) % Atypical Lymphs % 9.0 H ( - 0) % Monocytes % (Manual) 7.0 (2-11) % Eosinophils % (Manual) 1.0 L (2-4) % Neutrophils # (Manual) 6912 H (0147-3327) /uL Smudge Cells 2+ H RBC Morphology Normal morphology PT 11.2 (10.1-12.7) SECONDS INR 1.0 (0.9-1.3) APTT 30 (26.4-36.2) SECONDS VBG pH (7.33-7.43) VBG pCO2 (45-50) mmHg VBG pO2 (35-45) mmHg VBG HCO3 (23-28) mmol/L VBG Total CO2 (24-29) mmol/L VBG O2 Saturation (70-75) % VBG Base Excess (0-4) mmol/L Sodium 131 L (137-145) mmol/L Potassium 4.4 (3.4-5.1) mmol/L Chloride 95 L (98-107) mmol/L Carbon Dioxide 28 (22-32) mmol/L BUN 23 H (7-17) mg/dL Creatinine 0.84 (0.52-1.04) mg/dL Estimated GFR > 60.0 (>60) mL/min BUN/Creatinine Ratio 27.4 H (6-22) Glucose 467 H (80-110) mg/dL Hemoglobin A1c (4.0-6.0) % Calcium 10.4 H (8.4-10.2) mg/dL Magnesium 1.4 L (1.6-2.3) mg/dL Total Bilirubin 0.3 (0.2-1.3) mg/dL AST 36 (14-36) IU/L ALT 35 H (<35) IU/L Alkaline Phosphatase 70 (38-126) U/L Total Creatine Kinase 24 L (30-135) U/L CK-MB (CK-2) TNP CK-MB (CK-2) Rel Index TNP Troponin I < 0.012 (0.01-0.034) ng/mL Total Protein 7.3 (6.3-8.2) g/dL Albumin 4.3 (3.5-5.0) g/dL Globulin 3.0 (1.7-4.1) g/dL Albumin/Globulin Ratio 1.4 (1.0-2.8) Lipase 45 (23-300) U/L Ketones (<0.27) mmol/L SARS-CoV-2 (PCR) (Negative) 03/27/21 03/27/21 03/27/21 Range/Units 18:15 18:15 19:08 WBC (4.5-11.0) X10^3/uL RBC (4.0-5.2) X10^6/uL Hgb (12.0-16.0) g/dL Hct (36-46) % MCV (80-100) fL MCH (26-34) PG MCHC (30-36) % RDW (11.6-14.8) % Plt Count (150-400) X10^3/uL Neut % (Auto) Lymph % (Auto) [place] % (Auto) Eos % (Auto) Baso % (Auto) Lymph # (Auto) [place] # (Auto) Baso # (Auto) Total Counted Seg Neutrophils % (38-70) % Lymphocytes % (Manual) (25-45) % Atypical Lymphs % ( - 0) % Monocytes % (Manual) (2-11) % Eosinophils % (Manual) (2-4) % Neutrophils # (Manual) (6922-0489) /uL Smudge Cells RBC Morphology PT (10.1-12.7) SECONDS INR (0.9-1.3) APTT (26.4-36.2) SECONDS VBG pH (7.33-7.43) VBG pCO2 (45-50) mmHg VBG pO2 (35-45) mmHg VBG HCO3 (23-28) mmol/L VBG Total CO2 (24-29) mmol/L VBG O2 Saturation (70-75) % VBG Base Excess (0-4) mmol/L Sodium (137-145) mmol/L Potassium (3.4-5.1) mmol/L Chloride (98-107) mmol/L Carbon Dioxide (22-32) mmol/L BUN (7-17) mg/dL Creatinine (0.52-1.04) mg/dL Estimated GFR (>60) mL/min BUN/Creatinine Ratio (6-22) Glucose (80-110) mg/dL Hemoglobin A1c 12.0 H (4.0-6.0) % Calcium (8.4-10.2) mg/dL Magnesium (1.6-2.3) mg/dL Total Bilirubin (0.2-1.3) mg/dL AST (14-36) IU/L ALT (<35) IU/L Alkaline Phosphatase (38-126) U/L Total Creatine Kinase (30-135) U/L CK-MB (CK-2) CK-MB (CK-2) Rel Index Troponin I (0.01-0.034) ng/mL Total Protein (6.3-8.2) g/dL Albumin (3.5-5.0) g/dL Globulin (1.7-4.1) g/dL Albumin/Globulin Ratio (1.0-2.8) Lipase (23-300) U/L Ketones 0.54 H (<0.27) mmol/L SARS-CoV-2 (PCR) Negative (Negative) 03/27/21 03/27/21 Range/Units 19:09 21:30 WBC (4.5-11.0) X10^3/uL RBC (4.0-5.2) X10^6/uL Hgb (12.0-16.0) g/dL Hct (36-46) % MCV (80-100) fL MCH (26-34) PG MCHC (30-36) % RDW (11.6-14.8) % Plt Count (150-400) X10^3/uL Neut % (Auto) Lymph % (Auto) [place] % (Auto) Eos % (Auto) Baso % (Auto) Lymph # (Auto) [place] # (Auto) Baso # (Auto) Total Counted Seg Neutrophils % (38-70) % Lymphocytes % (Manual) (25-45) % Atypical Lymphs % ( - 0) % Monocytes % (Manual) (2-11) % Eosinophils % (Manual) (2-4) % Neutrophils # (Manual) (3088-4471) /uL Smudge Cells RBC Morphology PT (10.1-12.7) SECONDS INR (0.9-1.3) APTT (26.4-36.2) SECONDS VBG pH 7.35 (7.33-7.43) VBG pCO2 52.5 H (45-50) mmHg VBG pO2 16 L (35-45) mmHg VBG HCO3 29 H (23-28) mmol/L VBG Total CO2 30 H (24-29) mmol/L VBG O2 Saturation 19 L (70-75) % VBG Base Excess 3.0 (0-4) mmol/L Sodium 132 L (137-145) mmol/L Potassium 4.2 (3.4-5.1) mmol/L Chloride 100 (98-107) mmol/L Carbon Dioxide 27 (22-32) mmol/L BUN 21 H (7-17) mg/dL Creatinine 0.73 (0.52-1.04) mg/dL Estimated GFR > 60.0 (>60) mL/min BUN/Creatinine Ratio 28.8 H (6-22) Glucose 348 H D (80-110) mg/dL Hemoglobin A1c (4.0-6.0) % Calcium 9.0 (8.4-10.2) mg/dL Magnesium (1.6-2.3) mg/dL Total Bilirubin (0.2-1.3) mg/dL AST (14-36) IU/L ALT (<35) IU/L Alkaline Phosphatase (38-126) U/L Total Creatine Kinase (30-135) U/L CK-MB (CK-2) CK-MB (CK-2) Rel Index Troponin I (0.01-0.034) ng/mL Total Protein (6.3-8.2) g/dL Albumin (3.5-5.0) g/dL Globulin (1.7-4.1) g/dL Albumin/Globulin Ratio (1.0-2.8) Lipase (23-300) U/L Ketones (<0.27) mmol/L SARS-CoV-2 (PCR) (Negative) Point of Care Testing Glucose POC 196 Point of care testing: Point of Care Testing Glucose POC 196 Discharge Plan Departure Patient Disposition: Admitted as Observation Clinical Impression: Hypomagnesemia, Hyperglycemia Admit Date/Time: 03/27/21 22:16 Admit Provider: July Perry
[2021-03-27 18:55] LABS: Troponin I < 0.012 ng/mL (0.01-0.034)
[2021-03-27 19:05] LABS: Neutrophils Absolute Manual 6912 /uL (3000-5900); Smudge Cells 2+; Total Cells Counted 100
[2021-03-27 19:06] LABS: RBC Morphology Normal Morphology
[2021-03-27] MEDS: SODIUM CHLORIDE 0.9% 1,000 ML 1000 ML IV (19:20)
[2021-03-27] MEDS: MAGNESIUM SULFATE 2 GM/50 ML PIGGYBACK IV (19:21)
[2021-03-27 19:29] LABS: Ketones (Beta-Hydroxybutyrate) 0.54 mmol/L (<0.27)
[2021-03-27 20:04] LABS: COVID19 - ADMIT (NP swab/PCR) Negative (Negative)
[2021-03-27 21:08] LABS: HCO3 VBG 29 mmol/L (23-28); PCO2 VBG 52.5 mmHg (45-50); PO2 VBG 16 mmHg (35-45); Total CO2 VBG 30 mmol/L (24-29); pH VBG 7.35 (7.33-7.43)
[2021-03-27 21:09] LABS: Oxygen Saturation VBG 19 % (70-75)
[2021-03-27] MEDS: SODIUM CHLORIDE 0.9% 1,000 ML 125 ML IV (21:32)
[2021-03-27 21:49] LABS: BUN Creatinine Ratio 28.8 (6-22); Blood Urea Nitrogen 21 mg/dL (7-17); Carbon Dioxide 27 mmol/L (22-32); Chloride 100 mmol/L (98-107); Estimated Glomerular Filt Rate > 60.0 mL/min (>60); Glucose 348 mg/dL (80-110); HEMOLYSIS < 15 (0-50); Potassium 4.2 mmol/L (3.4-5.1); Sodium 132 mmol/L (137-145)
[2021-03-27] MEDS: levETIRAcetam 250 MG TABLET 500 MG PO (23:48)
[2021-03-27] MEDS: POTASSIUM CHLORIDE IN WATER 10 MEQ/100 ML PIGGYBACK 100 MEQ IV (23:50)
[2021-03-27 23:55] LABS: BUN Creatinine Ratio 29.4 (6-22); Blood Urea Nitrogen 20 mg/dL (7-17); Calcium 8.9 mg/dL (8.4-10.2); Carbon Dioxide 28 mmol/L (22-32); Chloride 101 mmol/L (98-107); Estimated Glomerular Filt Rate > 60.0 mL/min (>60); Glucose 313 mg/dL (80-110); HEMOLYSIS < 15 (0-50); Potassium 4.8 mmol/L (3.4-5.1); Sodium 133 mmol/L (137-145)
[2021-03-27] MEDS: INSULIN DRIP PREMIX 100 UNIT/100 ML PLAST..BAG IV (23:55)
[2021-03-28] VITALS (16 sets, daily range): BP systolic 115–151; BP diastolic 56–80; PULSE 65–84; RESP 16–29; TEMP 35.9–37.2; O2SAT 92–98; BMI 30.6
[2021-03-28] MEDS: IBUPROFEN 600 MG TABLET PO ×2 (00:37→17:02)
[2021-03-28] MEDS: ACETAMINOPHEN 325 MG TABLET 650 MG PO ×2 (00:37→17:02)
[2021-03-28] MEDS: DEXTROSE 5%-0.45% NS 1,000 ML 150 ML IV ×2 (00:50→07:56)
[2021-03-28] MEDS: POTASSIUM CHLORIDE IN WATER 10 MEQ/100 ML PIGGYBACK 100 MEQ IV (01:00)
[2021-03-28 05:42] LABS: Add Manual Diff / Slide Review NO; Basophils Absolute Auto 0 /uL (0-100); Basophils Percent Auto 0.2 % (0-2); Eosinophils Absolute Auto 200 /uL (0-450); Eosinophils Percent Auto 1.6 % (2-4); Hematocrit 34.7 % (36-46); Hemoglobin 11.7 g/dL (12.0-16.0); Lymphocytes Absolute Auto 9200 /uL (1100-4500); Lymphocytes Percent Auto 63.3 % (25-40); Mean Corpuscular HGB Conc 33.8 % (30-36); Mean Corpuscular Hemoglobin 29.8 PG (26-34); Monocytes Absolute Auto 800 /uL (0-900); Monocytes Percent Auto 5.7 % (3-14); Neutrophils Absolute Auto 4200 /uL (1500-7000); Neutrophils Percent Auto 29.2 % (50-75); Platelet Count 215 X10^3/uL (150-400); Red Blood Cell Count 3.94 X10^6/uL (4.0-5.2); Red Cell Distribution Width 12.5 % (11.6-14.8); White Blood Cell Count 14.5 X10^3/uL (4.5-11.0)
[2021-03-28 06:00] LABS: Blood Urea Nitrogen 20 mg/dL (7-17); Calcium 8.7 mg/dL (8.4-10.2); Carbon Dioxide 26 mmol/L (22-32); Chloride 103 mmol/L (98-107); Estimated Glomerular Filt Rate > 60.0 mL/min (>60); Glucose 209 mg/dL (80-110); HEMOLYSIS < 15 (0-50); Potassium 4.4 mmol/L (3.4-5.1); Sodium 133 mmol/L (137-145)
[2021-03-28 06:02] LABS: Magnesium 1.7 mg/dL (1.6-2.3); Phosphorous 2.4 mg/dL (2.8-4.1)
--- NOTE | 2021-03-28 08:29 | P.HP_ITS ---
History of Present Illness History of Present Illness Date Patient Seen: 03/28/21 Time Patient Seen: 08:30 Date of Onset of Symptoms: 03/22/21 Chief complaint: BLOOD SUGAR 429 Narrative: 75-year-old female nonsmoker with extensive cardiac history, hypertension, hyperlipidemia, CLL being managed by observation only, seizure disorder on Keppra presented to ED last night with her and chief complaint of feeling increasingly unwell for about the past week or so. 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 BG over 400 -> presented to ED. She has had no fever or chills but generally felt awful. She denies runny nose, sore throat or cough. She did have 1 episode of chest pain that was resolved with nitro, she has angina a few times a week which is resolved by nitro. She denies nausea, vomiting or diarrhea nor abdominal pain but endorses decreased appetite over this time frame. She denies any medication or dietary change. I saw patient for a car visit for general malaise on 03/26 she was alert with normal vitals and her covid swab was negative at that time. Patient History Medical History (Updated 03/28/21 @ 04:21 by Eva Vidal RN) Ankle fracture Bilateral occipital neuralgia Cervical stenosis of spinal canal Cervicogenic headache CLL (chronic lymphocytic leukemia) Facet arthropathy, cervical Facet arthropathy, lumbar FH: cholecystectomy Herniated nucleus pulposus, C6-7 Herniated nucleus pulposus, L3-4 left Hyperlipidemia Occipital neuralgia of left side Scoliosis due to degenerative disease of spine in adult patient Surgical History H/O: hysterectomy Hx of appendectomy Family & Social History Family History Father Hypertension COPD (chronic obstructive pulmonary disease) Alzheimer disease Heart disease Mother Multiple sclerosis Heart disease Hypertension Grandmother Heart disease Social History: household members spouse Prior Living Arrangements House Safety & Behavioral: Feels Safe in Current Yes Environment Been Physically Hurt or No Threatened By a Person Suicidal Ideation Description None Suicide Plan Description No Plan Tobacco & Substance use: Smoking Status Never smoker alcohol intake frequency a few times a month Substance Use Type does not use Meds Home Medications and Allergies Home Medications Medication Instructions Recorded Confirmed Type ALBUTEROL SULFATE (Ventolin / 1 - 2 puff INH PRN #0 05/27/10 03/28/21 History Proventil) ASPIRIN (Aspirin Ec) 81 mg PO Q DAY #0 05/27/10 03/28/21 History Atorvastatin Calcium (Lipitor) 40 mg PO HS #0 05/27/10 03/28/21 History IPRATROPIUM/ALBUTEROL SULFATE 2 puff INH PRN PRN #0 05/27/10 03/28/21 History (Combivent Inhaler) LISINOPRIL (Zestril / Prinivil) 20 mg PO BID #0 05/27/10 03/28/21 History NITROGLYCERIN (Nitrostat) 0.4 mg SUBLINGUAL PRN PRN #0 05/27/10 03/28/21 History docusate calcium 240 mg capsule 240 mg PO TID 12/18/19 03/28/21 History fenofibrate nanocrystallized 145 145 mg PO DAILY tab 12/18/19 03/28/21 History mg tablet gabapentin 600 mg tablet 600 mg PO TID 12/18/19 03/28/21 History levetiracetam 500 mg tablet 1,250 mg PO BID 12/18/19 03/28/21 History (Keppra) metoprolol succinate 25 mg 25 mg PO DAILY 12/18/19 03/28/21 History tablet,extended release 24 hr (Toprol XL) ondansetron HCl 4 mg tablet 8 mg PO Q8H PRN 12/18/19 03/28/21 History (Zofran) venlafaxine 75 mg capsule,extended 150 mg PO BEDTIME 12/18/19 03/28/21 History release 24 hr cholecalciferol (vitamin D3) 250 250 mcg PO DAILY 05/15/20 03/28/21 History mcg (10,000 unit) capsule lansoprazole 30 mg capsule,delayed 30 mg PO BID cap 08/05/20 03/28/21 History release tramadol 50 mg tablet 50 mg PO TID 03/28/21 03/28/21 History Allergies Allergy/AdvReac Type Severity Reaction Status Date / Time Penicillins Allergy Unknown Verified 03/21/21 09:59 Sulfa (Sulfonamide Allergy Verified 03/21/21 09:59 Antibiotics) duloxetine [From Cymbalta] AdvReac Intermediate rash Verified 03/21/21 09:59 omeprazole [From Prilosec] AdvReac Intermediate rash Verified 03/21/21 09:59 erythromycin base AdvReac rash Verified 03/21/21 09:59 Review of Systems Review of Systems Narrative: All systems reviewed and negative except as otherwise documented in HPI Exam Vital Signs (past 8 hours): - 03/28/21 00:30 03/28/21 01:00 03/28/21 01:30 Temperature Pulse Rate 71 75 76 Respiratory Rate 29 H 17 21 Blood Pressure 151/67 H 139/63 126/62 Pulse Oximetry 97 97 95 03/28/21 02:00 03/28/21 02:30 03/28/21 03:00 Temperature 97.6 F Pulse Rate 74 69 77 Respiratory Rate 26 H 22 23 Blood Pressure 115/56 L 149/79 H Pulse Oximetry 96 92 96 03/28/21 04:00 03/28/21 05:00 03/28/21 06:00 Temperature Pulse Rate 72 65 75 Respiratory Rate 21 25 H 25 H Blood Pressure Pulse Oximetry 96 94 95 Oxygen Delivery Method Room Air Narrative Exam Narrative: cheerful lady sitting in bed eating breakfast Const General: cooperative and comfortable Nutritional Appearance: average body habitus Eyes General: appearance normal, both eyes and all related structures Resp Effort & Inspection: normal respiratory effort and able to speak in complete sentences Auscultation: clear to auscultation bilaterally Cardio Rate: regular rate Rhythm: regular rhythm Heart Sounds: S1 normal and S2 normal GI Palpation: soft and No tender Auscultation: normal bowel sounds Skin General: no rashes or lesions noted Neuro General: patient alert, patient awake, patient oriented x3 and CN's II-XI intact bilaterally Cognition: normal cognition Speech: speech normal Extrem General: normal to inspection and full ROM Psych Appearance: grossly normal and well kempt Mental Status: mental status grossly normal Speech and Movement: speech and movement normal Mood: congruent mood Affect: normal affect Judgment: judgment good Objective Labs Result Diagrams: 03/28/21 04:45 03/28/21 04:45 Labs: Laboratory Results - last 24 hr 03/27/21 03/27/21 03/27/21 18:15 18:15 18:15 WBC 19.2 H RBC 4.85 Hgb 14.2 Hct 42.9 MCV 88.4 MCH 29.2 MCHC 33.0 RDW 12.8 Plt Count 306 Neut % (Auto) Not Reportable Lymph % (Auto) Not Reportable [place] % (Auto) Not Reportable Eos % (Auto) Not Reportable Baso % (Auto) Not Reportable Neut # (Auto) Lymph # (Auto) Not Reportable [place] # (Auto) Not Reportable Eos # (Auto) Baso # (Auto) Not Reportable Total Counted 100 Seg Neutrophils % 36.0 L Lymphocytes % (Manual) 47.0 H Atypical Lymphs % 9.0 H Monocytes % (Manual) 7.0 Eosinophils % (Manual) 1.0 L Neutrophils # (Manual) 6912 H Smudge Cells 2+ H RBC Morphology Normal morphology PT 11.2 INR 1.0 APTT 30 VBG pH VBG pCO2 VBG pO2 VBG HCO3 VBG Total CO2 VBG O2 Saturation VBG Base Excess Sodium 131 L Potassium 4.4 Chloride 95 L Carbon Dioxide 28 BUN 23 H Creatinine 0.84 Estimated GFR > 60.0 BUN/Creatinine Ratio 27.4 H Glucose 467 H Hemoglobin A1c Calcium 10.4 H Phosphorus Magnesium 1.4 L Total Bilirubin 0.3 AST 36 ALT 35 H Alkaline Phosphatase 70 Total Creatine Kinase 24 L CK-MB (CK-2) TNP CK-MB (CK-2) Rel Index TNP Troponin I < 0.012 Total Protein 7.3 Albumin 4.3 Globulin 3.0 Albumin/Globulin Ratio 1.4 Lipase 45 Ketones SARS-CoV-2 (PCR) 03/27/21 03/27/21 03/27/21 18:15 18:15 19:08 WBC RBC Hgb Hct MCV MCH MCHC RDW Plt Count Neut % (Auto) Lymph % (Auto) [place] % (Auto) Eos % (Auto) Baso % (Auto) Neut # (Auto) Lymph # (Auto) [place] # (Auto) Eos # (Auto) Baso # (Auto) Total Counted Seg Neutrophils % Lymphocytes % (Manual) Atypical Lymphs % Monocytes % (Manual) Eosinophils % (Manual) Neutrophils # (Manual) Smudge Cells RBC Morphology PT INR APTT VBG pH VBG pCO2 VBG pO2 VBG HCO3 VBG Total CO2 VBG O2 Saturation VBG Base Excess Sodium Potassium Chloride Carbon Dioxide BUN Creatinine Estimated GFR BUN/Creatinine Ratio Glucose Hemoglobin A1c 12.0 H Calcium Phosphorus Magnesium Total Bilirubin AST ALT Alkaline Phosphatase Total Creatine Kinase CK-MB (CK-2) CK-MB (CK-2) Rel Index Troponin I Total Protein Albumin Globulin Albumin/Globulin Ratio Lipase Ketones 0.54 H SARS-CoV-2 (PCR) Negative 03/27/21 03/27/21 03/27/21 19:09 21:30 23:31 WBC RBC Hgb Hct MCV MCH MCHC RDW Plt Count Neut % (Auto) Lymph % (Auto) [place] % (Auto) Eos % (Auto) Baso % (Auto) Neut # (Auto) Lymph # (Auto) [place] # (Auto) Eos # (Auto) Baso # (Auto) Total Counted Seg Neutrophils % Lymphocytes % (Manual) Atypical Lymphs % Monocytes % (Manual) Eosinophils % (Manual) Neutrophils # (Manual) Smudge Cells RBC Morphology PT INR APTT VBG pH 7.35 VBG pCO2 52.5 H VBG pO2 16 L VBG HCO3 29 H VBG Total CO2 30 H VBG O2 Saturation 19 L VBG Base Excess 3.0 Sodium 132 L 133 L Potassium 4.2 4.8 Chloride 100 101 Carbon Dioxide 27 28 BUN 21 H 20 H Creatinine 0.73 0.68 Estimated GFR > 60.0 > 60.0 BUN/Creatinine Ratio 28.8 H 29.4 H Glucose 348 H D 313 H Hemoglobin A1c Calcium 9.0 8.9 Phosphorus Magnesium Total Bilirubin AST ALT Alkaline Phosphatase Total Creatine Kinase CK-MB (CK-2) CK-MB (CK-2) Rel Index Troponin I Total Protein Albumin Globulin Albumin/Globulin Ratio Lipase Ketones SARS-CoV-2 (PCR) 03/28/21 03/28/21 03/28/21 04:45 04:45 04:45 WBC 14.5 H RBC 3.94 L Hgb 11.7 L Hct 34.7 L MCV 88.0 MCH 29.8 MCHC 33.8 RDW 12.5 Plt Count 215 Neut % (Auto) 29.2 L Lymph % (Auto) 63.3 H [place] % (Auto) 5.7 Eos % (Auto) 1.6 L Baso % (Auto) 0.2 Neut # (Auto) 4200 Lymph # (Auto) 9200 H [place] # (Auto) 800 Eos # (Auto) 200 Baso # (Auto) 0 Total Counted Seg Neutrophils % Lymphocytes % (Manual) Atypical Lymphs % Monocytes % (Manual) Eosinophils % (Manual) Neutrophils # (Manual) Smudge Cells RBC Morphology PT INR APTT VBG pH VBG pCO2 VBG pO2 VBG HCO3 VBG Total CO2 VBG O2 Saturation VBG Base Excess Sodium 133 L Potassium 4.4 Chloride 103 Carbon Dioxide 26 BUN 20 H Creatinine 0.74 Estimated GFR > 60.0 BUN/Creatinine Ratio 27.0 H Glucose 209 H D Hemoglobin A1c Calcium 8.7 Phosphorus 2.4 L Magnesium 1.7 Total Bilirubin AST ALT Alkaline Phosphatase Total Creatine Kinase CK-MB (CK-2) CK-MB (CK-2) Rel Index Troponin I Total Protein Albumin Globulin Albumin/Globulin Ratio Lipase Ketones SARS-CoV-2 (PCR) Assessment & Plan Assessment & Plan narrative: #HHS #diabetes mellitus, new diagnosis BG responding well to insulin drip she is eating breakfast this morning with BG in the low 200s Based on recent drip needs and weight, starting long-acting insulin 30U with TID/AC short acting 10Us with SSI Continue D5 for now but can start titrating down after an hour continue fingersticks TID AC diabetic diet 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 #CLL, chronic, prior to admission #leukocytosis, found on admission stable, monitor, not on meds for this currently #Seizure disorder continue home keppra home dose is 1250 bid denies any recent seizures she has been adherent to regimen no keppra levels in 2 years will obtain #Hx of prior [place] continue statin, BB, ASA 81, PRN nitrostat #Hypertension stable continue home lisinopril 5, metoprolol succ 25, prn hydralazine #Hyperlipidemia continue home atorvastatin 40 #Constipation continue home docusate #GERD home prazole Dispo: home after regimen established MDM: Code: full DVT PPX: lovenox diet: carb controlled restricted sodium Quality VTE Deep Vein Thrombosis/Pulmonary Embolism Present on Admission: No
[2021-03-28] MEDS: ENOXAPARIN 40 MG/0.4 ML SYRINGE SUBCUT (09:15)
[2021-03-28] MEDS: INSULIN GLARGINE 100 UNIT/ML 3ML PEN 30 UNIT SUBCUT (09:15)
[2021-03-28] MEDS: PANTOPRAZOLE DR 40 MG TABLET PO ×2 (09:16→21:04)
[2021-03-28] MEDS: ONDANSETRON 4 MG/2 ML INJ IV ×2 (09:25→21:20)
--- NOTE | 2021-03-28 11:07 | PC.NURSE ---
Left message to return call or place orders for pt's home meds. Requested clarification of orders for keppra (pt takes 1250 mg PO BID) as current order is not consistent with home dosing. Awaiting orders.
--- NOTE | 2021-03-28 12:02 | DIET.CONS ---
Dietary Consultation Note Admission Date: 03/27/2021 22:16 Assessment: 75 y/o F newly diagnosed diabetes with HgA1c of 12% and blood sugar of 467 mg/dL upon admit. present during consult today, he too with T2DM. Elena reports feeling unwell over the last 2-3 weeks. 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 States readings were 155-300 mg/dL. Elena reports FH of DM with all 3 of her younger sisters, both parents, and recently her daughter. Recent BG improved though still above goal. 209 mg/dL this morning. Current DM meds: 30 u Glargine, Lispro SSI. Drip d/c this morning. Ht: 154.94 cm Wt: 74.4 kg BMI: 30.6 Last BM: 03/27/21 (03/28/21 03:00) MNA: 11 Jordan Score: 22 Diet: CCD 03/28/21 Breakfast Carbohydrate Consistent Diet Carbohydrate level: Medium (3 CHO) 03/28/21 Lunch Carbohydrate Consistent Diet Carbohydrate level: Medium (3 CHO) Percent of last meal consumed (last 48h) Percent Meal Consumed 30 03/28/21 09:00 Percent Meal Consumed 100% 03/28/21 05:00 Labs: RBC 3.94 X10^6/uL (4.0-5.2) L 03/28/21 04:45 Hgb 11.7 g/dL (12.0-16.0) L 03/28/21 04:45 Hct 34.7 % (36-46) L 03/28/21 04:45 Creatinine 0.74 mg/dL (0.52-1.04) 03/28/21 04:45 Hemoglobin A1c 12.0 % (4.0-6.0) H 03/27/21 18:15 Nutrition Diagnosis: Altered nutrition related lab value r/t new onset DM aeb HgA1c of 12% ; Nutrition and food related knowledge deficit r/t new onset Interventions: Provided brief diabetes education. Provided plate method and basic carb counting handout, as well as s/s and tx of hyper- and hypoglycemia. Provided contact for diabetes education. Monitoring/Evaluations: BG monitoring. Elena would benefit from DM education OP referral. Discussed briefly with provider. Esha Cavazos RD, [facility]
--- NOTE | 2021-03-28 12:06 | PT.IIE ---
Medical History (Last Reviewed 03/21/21 @ 10:41 by Gama Lechuga DO) Ankle fracture Bilateral occipital neuralgia Cervical stenosis of spinal canal Cervicogenic headache CLL (chronic lymphocytic leukemia) Facet arthropathy, cervical Facet arthropathy, lumbar FH: cholecystectomy Herniated nucleus pulposus, C6-7 Herniated nucleus pulposus, L3-4 left Hyperlipidemia Occipital neuralgia of left side Scoliosis due to degenerative disease of spine in adult patient Physical Therapy Inpatient Evaluation/Re-Eval M1 PT/OT-IP Prior Functional Status Start: 03/28/21 13:27 Freq: NEEDED Status: Active Protocol: Document 03/28/21 12:06 AB (Rec: 03/28/21 13:40 AB [email or web address]) Medical Review Prior Functional Status Medical History Reviewed Yes Communication able to make needs known Mobility and Gait pt stated that she is independent with all mobilities and ambulation without AD but uses a 4WW for outdoor mobility Prior Functional Level (Other details) pt stated that she has fibromyalgia and chronic LBP due to herniated disc Social History Household Members spouse Living Arrangements House Number of Floors (Floors) One Floor Number of Stairs To Enter/Railing? 5 steps R rail ascending to enter Home Environment Standard Height Toilet,Walk in Shower Home Equipment Front Wheel Walker,Four Wheel Walker,Raised Toilet Seat w/ Armrests,Shower Seat with Backrest,Hand Held Shower Additional Social History Comment pt's spouse will be having knee surgery next week and will not be able to assist pt at home M2 PT-IP Current Condition Start: 03/28/21 13:27 Freq: NEEDED Status: Active Protocol: Document 03/28/21 12:06 AB (Rec: 03/28/21 13:40 AB [email or web address]) Physical Therapy Current Condition Current Condition Evaluation Date 03/28/21 Treatment Diagnosis DM; difficulty in walking Onset Date 03/27/21 Precautions Other Precautions seizure M3 PT-IP Subjective Start: 03/28/21 13:27 Freq: NEEDED Status: Active Protocol: Document 03/28/21 12:06 AB (Rec: 03/28/21 13:40 AB [email or web address]) Subjective Physical Therapy Visit Type Type Initial Evaluation Visit Start Time 12:06 Visit Stop Time 12:30 Total Visit Minutes 24 Number of COMMUNICATIONS TOWER CLIMBER Visits 0 Physical Therapy Visit Comments Patient Comments agreeable to do PT Therapy Pain Assessment Pain When Pain Assessed At Rest Location Back Intensity 7 Scale Used Numeric (0 - 10) Pain Management Techniques Modification of Treatment,Re- positioning,Timing of Activity with Medications M4 PT-IP Mobility and Gait Start: 03/28/21 13:27 Freq: NEEDED Status: Active Protocol: Document 03/28/21 12:06 AB (Rec: 03/28/21 13:40 AB [id number]) PT-Bed Mobility Assessment Supine to Sit Supine to Sit Standby Assistance PT-Transfer Assessment Sit to and From Stand Sit to and from Stand Standby Assistance Equipment Transfer Assistive Device None,Gait Belt Orthotic/Prosthetic Devices or Brace: No Transfers Transfer Destination Chair Transfer Technique ambulated Transfer Ability Level of Assist Standby Assistance Comments Mobility Comments completed supine to sit SBa. able to sit on EOB SBA. completed sit to stand SBA and ambulated ~ 50 ft in room without AD SBA but requiring CGA towards end of ambulation with c/o feeling tired and increase unsteadiness with ambulation. pt sat on chair and positioned on chair and set up for lunch. nurse came in and took over pt's care. Gait Assessment Gait Gait Assistance Required: Standby Assistance,Contact Guard Assist Distance (Feet) 50 Able to Maintain Weight Bearing Status Yes During Gait Assistive Devices Assistive Device None,Gait Belt Orthotic/Prosthetic Devices or Brace: No Gait Deviations General Gait Pattern Decreased Stride Length, Decreased Feet Clearance Factors Limiting Gait Function Factors Limiting Gait Function Decreased Activity Tolerance, Limited Range of Motion,Pain, Poor Balance PT-Balance Assessment Sitting Balance and Reactions Static Sitting Balance Ability Normal Dynamic Sitting Balance Ability Normal Standing Balance and Reactions Static Standing Balance Ability Good Dynamic Standing Balance Ability Fair Device Used without AD M5 PT-IP Objective Assessments Start: 03/28/21 13:27 Freq: NEEDED Status: Active Protocol: Document 03/28/21 12:06 AB (Rec: 03/28/21 13:40 AB [id number]) Orientation Orientation/Cognition Level of Alertness Alert Orientation Name,Age,Birthday,Place, Situation Language Function Ability No Deficits Noted Safety Awareness Understands Safety Issues Memory Description No Deficits Noted Gross Range of Motion Lower Extremity ROM Assessment Within Functional Limits Strength Lower Extremity Strength Assessment Within Functional Limits Coordination Assessment Gross Coordination Gross Coordination WNL Sensation Assessment Sensation Gross Sensation WNL Muscle Tone Muscle Tone WNL Yes M6 PT-IP Treatment Start: 03/28/21 13:27 Freq: NEEDED Status: Active Protocol: Document 03/28/21 12:06 AB (Rec: 03/28/21 13:40 AB [id number]) Physical Therapy Treatment Education Education Provided Safety M7 PT-IP Assessment and Plan Start: 03/28/21 13:27 Freq: NEEDED Status: Active Protocol: Document 03/28/21 12:06 AB (Rec: 03/28/21 13:40 AB [id number]) PT Summary Assessment and Plan Potential Rehabilitation Potential Good Status of Condition at Evaluation Evolving Summary Impairments Pain,ROM,Strength,Balance,Bed Mobility,Transfers,Gait, Activity Tolerance Assessment Summary pt requiring SBA to CGA with mobility but with decrease activity tolerance affecting mobility independence with increase unsteadiness with ambulation towards end of a 50 ft ambulation. pt's spouse will be having his knee surgery next week and will not be able to assist pt. Pt stated that they are looking into finding assistance at home. will continue to work on pt for PT to improve overall strength and independence. pt will require HHPT. Goals Bed Mobility Goal Independent Transfer Goal Independent Gait Goal Independent Gait Distance 150 Other Goals up/down 5 steps R rail ascending mod I Days to Meet Goals 5 Frequency of Treatment Frequency Of Treatment Once a Day Treatment Plan Physical Therapy Treatment Plan Bed Mobility Training,Transfer Training,Gait Training, Therapeutic Exercise,Balance Retraining,Discharge Planning, Neuromuscular Re-ed, Coordination Retraining Other Recommendations and Next Treatment stair climbing Focus Precautions Other Precautions seizure Recommendations To Nursing Amount of Assist Needed 1 Person Assist Discharge Recommendations PT Discharge Recommendations Home with Assistance,Home Health Transportation Needs at Discharge Private Vehicle
[2021-03-28] MEDS: INSULIN LISPRO 100 UNIT/ML 3ML VIAL 10 UNIT SUBCUT ×2 (12:24→17:03)
[2021-03-28] MEDS: levETIRAcetam 250 MG TABLET 1250 MG PO ×2 (12:52→21:03)
--- NOTE | 2021-03-28 13:08 | PC.NURSE ---
Pt and spouse provided with verbal education regarding how to use and self administer insulin via pen and vial. Pt/spouse verbalize understanding. States her is a diabetic and she does check his blood sugar and administer his insulin when he is not feeling well. 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 Pt is able to draw up her own insulin and self administer subcut demonstrating good technique.
--- NOTE | 2021-03-28 14:57 | PC.NURSE ---
Addendum entered by Colby Raygoza R.N. 03/28/21 15:14: Provider aware of pts c/o nausea and request for home meds. Awaiting orders. Original Note: Pt c/o dry heaves. States she feels like she's going backwards. Not time for antiemetic. Left message for provider re pt c/o nausea. Also reiterated pt would like home meds re ordered.
--- NOTE | 2021-03-28 16:11 | CM.IDA ---
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 Pt is able to draw up her own insulin and self administer subcut demonstrating good technique. Original Note: Initial DCP Assessment Note Pt is a 75 yo female, resident of [place], according to H+P: extensive cardiac history, hypertension, hyperlipidemia, CLL being managed by observation only, seizure disorder on Keppra presented to ED last night with her and chief complaint of feeling increasingly unwell for about the past week or so. Patient had a BS of 429, admitted observation for management and regulation of this PCP: Jose Alberto Maddxo Payer: [facility]/[employer] Reviewed chart, met w/patient and spouse at bedside this morning, introduced role. Patient and spouse in good spirits, both mostly indp and active at baseline (low activity tolerance some days), spouse Pedro is scheduled for a total knee replacement w/Dr Gregorio next Wednesday. Spouse is a retired RN Patient/spouse do not anticipate any DC needs, state they have been 40+ years, raised 6 children together and feel confident about return home w/close outpatient follow up and assist from adult children and grand children. No needs expected from DC planning team although will remain available in case this changes before DC. OSBALDO Hendricks Discharge Planning/Care Management CM Discharge Assessment Start: 03/28/21 16:09 Freq: Status: Active Protocol: Document 03/28/21 16:10 MELISSA (Rec: 03/28/21 16:11 MELISSA [id number]) Discharge Planning Assessment Assigned Passenger Attendant OSBALDO Blair DPOA/Assigned Designee Name Pedro Rodriguez, spouse Contact Information [phone] Advance Directives? Yes Advance Directives on File No History Provided By Patient,Significant Other Prior Living Arrangements House Household Members spouse Type of transporation used prior to Relies on Others admit Independent with ADL's Yes Is patient alert and oriented? Yes Needs Assistance With Home Chores / Shopping Barriers to Discharge No Discharge Plan Home Transportation Arrangement Spouse Referrals Initiated None needed Whiteboard Updated in Patient Room with Yes name and ext. # of Passenger Attendant
[2021-03-28] MEDS: ONDANSETRON 4 MG ODT 8 MG PO (17:03)
[2021-03-28] MEDS: ATORVASTATIN 20 MG TABLET 40 MG PO (21:02)
[2021-03-28] MEDS: VENLAFAXINE ER 75 MG CAP 150 MG PO (21:03)
[2021-03-28] MEDS: DOCUSATE 100 MG CAPSULE 200 MG PO (21:04)
[2021-03-28] MEDS: FENOFIBRATE, MICRONIZED 67 MG CAPSULE 201 MG PO (21:04)
[2021-03-28] MEDS: GABAPENTIN 600 MG TABLET PO (21:04)
[2021-03-28] MEDS: lisinopriL 20 MG TABLET PO (21:04)
[2021-03-29 06:00] VITALS: BP 147/66; PULSE 80; RESP 14; TEMP 36.2; O2SAT 97
[2021-03-29 08:00] VITALS: BP 137/65; PULSE 80; RESP 17; TEMP 36.1; O2SAT 97
[2021-03-29] MEDS: ACETAMINOPHEN 325 MG TABLET 650 MG PO (08:20)
[2021-03-29] MEDS: PANTOPRAZOLE DR 40 MG TABLET PO (08:20)
[2021-03-29] MEDS: ASPIRIN EC 81 MG TABLET PO (08:20)
[2021-03-29] MEDS: METOPROLOL ER 25 MG TABLET PO (08:20)
[2021-03-29] MEDS: IBUPROFEN 600 MG TABLET PO (08:20)
[2021-03-29] MEDS: GABAPENTIN 600 MG TABLET PO (08:21)
[2021-03-29] MEDS: DOCUSATE 100 MG CAPSULE 200 MG PO (08:21)
[2021-03-29] MEDS: ENOXAPARIN 40 MG/0.4 ML SYRINGE SUBCUT (08:21)
[2021-03-29] MEDS: lisinopriL 20 MG TABLET PO (08:21)
[2021-03-29] MEDS: CHOLECALCIFEROL (VITAMIN D3) 5,000 UNIT TABLET 10000 UNIT PO (08:21)
[2021-03-29] MEDS: levETIRAcetam 250 MG TABLET 1250 MG PO (08:21)
[2021-03-29] MEDS: INSULIN GLARGINE 100 UNIT/ML 3ML PEN 30 UNIT SUBCUT (08:22)
[2021-03-29] MEDS: INSULIN LISPRO 100 UNIT/ML 3ML VIAL SUBCUT (08:22)
[2021-03-29] MEDS: INSULIN LISPRO 100 UNIT/ML 3ML VIAL 10 UNIT SUBCUT ×2 (08:22→12:06)
--- NOTE | 2021-03-29 11:04 | PT.IPTN ---
Current Diagnoses Type 2 diabetes mellitus without complications (03/27/21) Physical Therapy Treatment Note M2 PT-IP Current Condition Start: 03/28/21 13:27 Freq: NEEDED Status: Active Protocol: Document 03/28/21 12:06 AB (Rec: 03/28/21 13:40 AB [id number]) Physical Therapy Current Condition Current Condition Evaluation Date 03/28/21 Treatment Diagnosis DM; difficulty in walking Onset Date 03/27/21 Precautions Other Precautions seizure M3 PT-IP Subjective Start: 03/28/21 13:27 Freq: NEEDED Status: Active Protocol: Document 03/29/21 10:47 CLB (Rec: 03/29/21 12:35 CLB [id number]) Subjective Physical Therapy Visit Type Type Treatment Note Visit Start Time 10:47 Visit Stop Time 11:04 Total Visit Minutes 17 Notes present during tx. 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 Pt stood and climbed three steps with right rail x2. Pt ambulated back to room w/o AD ~225ft SBA . Pt returned to sitting on EOB. Gait Assessment Gait Gait Assistance Required: Standby Assistance Distance (Feet) 225 Able to Maintain Weight Bearing Status Yes During Gait Assistive Devices Assistive Device None,Gait Belt Orthotic/Prosthetic Devices or Brace: No Factors Limiting Gait Function Factors Limiting Gait Function Decreased Activity Tolerance, Pain Comments Gait Comments Pt able to ambulate in rojas ~ 225ft w/o AD/ SBA, pt with good safety awareness and able to move around obstacles. Stair Climbing Assessment Evaluation Level of Assist On Stairs Standby Assistance Devices Stair Climbing Assistive Devices Right Railing Technique/Endurance Stair Climbing Direction Ascend and Descend Stair Climbing Technique Step to Step Number of Steps Climbed 3 Stair Climbing Set # Repetitions (reps) 2 M5 PT-IP Objective Assessments Start: 03/28/21 13:27 Freq: NEEDED Status: Active Protocol: Document 03/28/21 12:06 AB (Rec: 03/28/21 13:40 AB [email or web address]) Orientation Orientation/Cognition Level of Alertness Alert Orientation Name,Age,Birthday,Place, Situation Language Function Ability No Deficits Noted Safety Awareness Understands Safety Issues Memory Description No Deficits Noted Gross Range of Motion Lower Extremity ROM Assessment Within Functional Limits Strength Lower Extremity Strength Assessment Within Functional Limits Coordination Assessment Gross Coordination Gross Coordination WNL Sensation Assessment Sensation Gross Sensation WNL Muscle Tone Muscle Tone WNL Yes M6 PT-IP Treatment Start: 03/28/21 13:27 Freq: NEEDED Status: Active Protocol: Document 03/28/21 12:06 AB (Rec: 03/28/21 13:40 AB [id number]) Physical Therapy Treatment Education Education Provided Safety M7 PT-IP Assessment and Plan Start: 03/28/21 13:27 Freq: NEEDED Status: Active Protocol: Document 03/29/21 10:47 CLB (Rec: 03/29/21 12:35 CLB [id number]) PT Summary Assessment and Plan Potential Rehabilitation Potential Good Status of Condition at Evaluation Evolving Summary Impairments Pain,ROM,Strength,Balance,Bed Mobility,Transfers,Gait, Activity Tolerance Progress Towards Goals Progressing Toward Goals Assessment Summary Pt requiring SBA for all mobility with increase in gait distance to ~225ft w/o AD/SBA . Pt climbed stairs SBA. Pt seems safe to d/c home when medically stable. Goals Bed Mobility Goal Independent Transfer Goal Independent Gait Goal Independent Gait Distance 150 Other Goals up/down 5 steps R rail ascending mod I Days to Meet Goals 5 Frequency of Treatment Frequency Of Treatment Once a Day Treatment Plan Physical Therapy Treatment Plan Bed Mobility Training,Transfer Training,Gait Training, Therapeutic Exercise,Balance Retraining,Discharge Planning, Neuromuscular Re-ed, Coordination Retraining Precautions Other Precautions seizure Recommendations To Nursing Amount of Assist Needed 1 Person Assist Discharge Recommendations PT Discharge Recommendations Home with Assistance,Home Health Transportation Needs at Discharge Private Vehicle
[2021-03-29 12:00] VITALS: BP 117/59; PULSE 81; RESP 17; TEMP 36.3; O2SAT 96
--- NOTE | 2021-03-29 12:14 | P.DS_ITS ---
History of Present Illness History of Present Illness Date Patient Seen: 03/29/21 Time Patient Seen: 10:30 Chief complaint: BLOOD SUGAR 429 Narrative: 75-year-old female nonsmoker with extensive cardiac history, hypertension, hyperlipidemia, CLL being managed by observation only, seizure disorder on Keppra presented to ED last night with her and chief comp laint of feeling increasingly unwell for about the past week or so. 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 BG over 400 -> presented to ED. She has had no fever or chills but generally felt awful. She denies runny nose, sore throat or cough. She did have 1 episode of chest pain that was resolved with nitro, she has angina a few times a week which is resolved by nitro. She denies nausea, vomiting or diarrhea nor abdominal pain but endorses decreased appetite over this time frame. She denies any medication or dietary change. I saw patient for a car visit for general malaise on 03/26 she was alert with normal vitals and her covid swab was negative at that time. Discharge Providers Provider Date of admission: 03/27/21 22:16 Discharge Date: 03/29/21 Primary care physician: Jose Alberto Parrish MD Consults: 03/27/21 23:06 Consult to Discharge Planning Routine Comment: Consult to Physical Therapy Evaluate & Treat Comment: Physician Instructions: Evaluate and Treat 03/28/21 08:51 Consult to Dietitian, Adult Routine Comment: Reason For Exam: new onset diabetes Discharge provider: Dawna Singer MD Summary Hospital Course Discharge Diagnosis: Hyperglycemic hyperosmolar syndrome Diabetes mellitus, new diagnosis CLL, chronic, prior to admission Seizure disorder CAD Hypertension Hyperlipidemia Constipation GERD Hospital Course: The pt was admitted with hyperglycemia with a new diagnosis of type 2 diabetes, with hyperglycemic hyperosmolar syndrome present. She was started on an insulin drip, which she responded well to. Her D5 was gradually titrated off. She was transitioned to 30 units of long-acting insulin with 10 u nits short-acting with meals. Her blood sugars normalized to, while still slightly elevated, acceptable range in the low 200s. The pt felt tired due to limited sleep, but otherwise her systemic symptoms improved while in the hospital. The pts is an insulin-dependent diabetic, and the pt felt comfortable performing injections at home. She was discharged home stable, with instructions to continue the insulin at home for now. She will also be started on a very slow taper up of Metformin. The pt was instructed to continue checking her blood sugars fasting and with meals at home. She will f/u with her PCP in 2 days. Status at Discharge Cognitive/behavioral status at discharge: oriented Functional status at discharge: independent ambulation Overall status at discharge: patient is back to baseline Exam Vital Signs (past 8 hours): - 03/29/21 06:00 03/29/21 08:00 Temperature 97.1 F L 97.0 F L Pulse Rate 80 80 Respiratory Rate 14 17 Blood Pressure 147/66 H 137/65 Pulse Oximetry 97 97 Oxygen Delivery Method Room Air Oxygen Flow Rate 0 Narrative Exam Narrative: Gen: NAD, sitting comfortably in chair, appears well CV: RRR, no murmurs Resp: clear to auscultation bilaterally Abd: soft, nontender, nondistended, normoactive bowel sounds Ext: no edema Objective Labs Result Diagrams: 03/28/21 04:45 03/28/21 04:45 Labs: Laboratory Results - last 24 hr 03/28/21 04:48 Hemoglobin A1c Cancelled [facility] Medical History (Updated 03/28/21 @ 04:21 by Eva Vidal RN) Ankle fracture Bilateral occipital neuralgia Cervical stenosis of spinal canal Cervicogenic headache CLL (chronic lymphocytic leukemia) Facet arthropathy, cervical Facet arthropathy, lumbar FH: cholecystectomy Herniated nucleus pulposus, C6-7 Herniated nucleus pulposus, L3-4 left Hyperlipidemia Occipital neuralgia of left side Scoliosis due to degenerative disease of spine in adult patient Surgical History H/O: hysterectomy Hx of appendectomy Family History Father Hypertension COPD (chronic obstructive pulmonary disease) Alzheimer disease Heart disease Mother Multiple sclerosis Heart disease Hypertension Grandmother Heart disease Social History household members: spouse Smoking Status: Never smoker Discharge Plan Discharge Plan Patient Disposition: Home Discharge orders & Medications Prescriptions: New Lantus Solostar U-100 Insulin 100 unit/mL (3 mL) Insulin Pen 30 unit SUBCUT 0800 Qty: 15 RF: 0 insulin lispro-aabc 100 unit/mL insulin pen 10 unit SUBCUT TID Qty: 15 RF: 0 (DME) pen needle, diabetic [Pen Needle] 31 gauge x 3/16 needle See Rx Instructions .Route Qty: 50 RF: 0 (DME) lancets [Lancets,Thin] Misc See Rx Instructions .Route Qty: 100 RF: 0 metformin 500 mg tablet See Rx Instructions .ROUTE .COMPLEX Qty: 90 RF: 0 Glucometer and testing strips See Rx Instructions .ROUTE .COMPLEX Qty: 1 RF: 0 Continued atorvastatin 40 mg Tablet 40 mg PO BEDTIME Qty: 0 RF: 0 lisinopril 20 mg Tablet 20 mg PO BID Qty: 0 RF: 0 aspirin 81 mg Tablet,Delayed Release (Dr/Ec) 81 mg PO DAILY Qty: 0 RF: 0 nitroglycerin 0.4 mg Tablet, Sublingual 0.4 mg SUBLINGUAL Q5M PRN (Reason: Chest Pain) Qty: 0 RF: 0 ipratropium-albuterol 18-103 mcg/actuation Aerosol 2 spray INHALATION PRN PRN (Reason: Wheezing) Qty: 0 RF: 0 albuterol sulfate 90 mcg/actuation Hfa Aerosol Inhaler 2 puff INHALATION QID Qty: 0 RF: 0 tramadol 50 mg tablet 50 mg PO TID RF: 0 venlafaxine 75 mg capsule,extended release 24hr 150 mg PO BEDTIME RF: 0 gabapentin 600 mg tablet 600 mg PO TID RF: 0 levetiracetam [Keppra] 500 mg tablet 1,250 mg PO BID RF: 0 metoprolol succinate [Toprol XL] 25 mg tablet extended release 24 hr 25 mg PO DAILY RF: 0 ondansetron HCl [Zofran] 4 mg tablet 8 mg PO Q8H PRN (Reason: Angina) RF: 0 docusate calcium 240 mg capsule 240 mg PO TID RF: 0 fenofibrate nanocrystallized 145 mg tablet 145 mg PO DAILY RF: 0 cholecalciferol (vitamin D3) 250 mcg (10,000 unit) capsule 250 mcg PO DAILY RF: 0 lansoprazole 30 mg capsule,delayed release(DR/EC) 30 mg PO BID RF: 0 Follow up/Referrals: Jose Alberto Parrish MD [Primary Care Provider] - (Follow-up with Dr Parrish on Wednesday as scheduled.) Diet/Activity/Treatments Diet: Carb-consistent/Diabetic Visit Report/Discharge Packet Instructions: DI for Diabetes Type 2 Visit Report Forms: Patient Portal/API, Stroke Signs & Symptoms Discharge Data Primary Care Provider: Jose Alberto Parrish Attending Provider: July Perry Admit Date/Time: 03/27/21 22:16 Quality VTE Deep Vein Thrombosis/Pulmonary Embolism Present on Admission: No
--- NOTE | 2021-03-29 13:53 | PC.NURSE ---
reviewed discharge plan with both pt and spouse and answered all questions to their satisfaction- discharge from hospital at this time
== END 2021-03-29 13:56 | disposition home or self-care (01) ==
LOC: ED 22:15 → AC 22:17 → ICU 03-28 08:09
PROVIDERS: Admitting Provider Student in an Organized Health Care Education/Training Program; Emergency Provider Emergency Medicine; PCP Family Medicine; Referring Provider Emergency Medicine; Visit Provider Student in an Organized Health Care Education/Training Program
DX: E11.00 Type 2 diabetes mellitus with hyperosmolarity without nonketotic hyperglycemic-hyperosmolar coma (NKHHC) (principal); E11.65 Type 2 diabetes mellitus with hyperglycemia; R07.9 Chest pain, unspecified; I10 Essential (primary) hypertension; E78.5 Hyperlipidemia, unspecified; G40.909 Epilepsy, unspecified, not intractable, without status epilepticus; C91.11 Chronic lymphocytic leukemia of B-cell type in remission; K21.9 Gastro-esophageal reflux disease without esophagitis; K59.00 Constipation, unspecified; I25.10 Atherosclerotic heart disease of native coronary artery without angina pectoris; Z20.822 Contact with and (suspected) exposure to COVID-19
CPT/HCPCS: 36415; 71045; 80048; 80053; 80177; 82009; 82550; 82805; 82962; 83036; 83690; 83735; 84100; 84484; 85007; 85025; 85610; 85730; 87635; 93005; 93010; 96361; 96365; 96366; 96372; 96375; 96376; 97116; 97162; 99217; 99284; C9803; G0378; A9270; J1650; J1815; J2405; J3475

== ENCOUNTER → 2021-04-07 10:28 | Outpatient (CLI) | payer MEDICARE, OTHER, SELFPAY ==
[2021-03-28 03:00] VITALS: BMI 30.6
[2021-04-07 12:34] LABS: COVID19 -Nasal RAPID Negative (Negative)
== END ==
PROVIDERS: PCP Family Medicine; Visit Provider Nurse Practitioner Family
DX: Z01.812 Encounter for preprocedural laboratory examination (principal); Z20.822 Contact with and (suspected) exposure to COVID-19
CPT/HCPCS: 87635; C9803

== ENCOUNTER 2021-04-08 09:52 | Outpatient (CLI) | payer MEDICARE, OTHER, SELFPAY ==
[2021-03-28 03:00] VITALS: BMI 30.6
[2021-04-08] VITALS (7 sets, daily range): BP systolic 100–136; BP diastolic 52–60; PULSE 71–77; RESP 11–19; O2SAT 95–99
--- NOTE | 2021-04-08 09:53 | DI.RAD.S_ITS ---
PROCEDURE: PAIN L INTERLAMINAR/CAUDAL INJ INDICATIONS: SPONDYLOSIS COMPARISON: [facility], , PAIN L/S MED/LAT N RFA BILAT, 05/21/2020, 8:27. FINDINGS: Fluoroscopic spot filming was performed to verify placement of a spinal needle at the L3-L4 level, as labeled on the films. Appropriate location of the needle tip was confirmed by injection of iodinated contrast. IMPRESSION: Intraprocedural examination within normal limits. Dictated by: Cheko Andrade M.D. on 04/08/2021 at 13:44 Approved by: Cheko Andrade M.D. on 04/08/2021 at 13:44
[2021-04-08] MEDS: fentaNYL 100 MCG/2 ML INJ 50 MCG IV (11:32)
[2021-04-08] MEDS: MIDAZOLAM 5 MG/5 ML VIAL IV (11:32)
[2021-04-08] MEDS: IOPAMIDOL 15 ML VIAL 3 ML INJ (11:37)
[2021-04-08] MEDS: BETAMETHASONE 30 MG/5 ML MDV 6 MG INJ (11:37)
[2021-04-08] MEDS: BUPIVACAINE 0.25% (PF) VIAL 2 ML INJ (11:37)
[2021-04-08] MEDS: DEXAMETHASONE 10 MG/ML VIAL 20 MG INJ (11:37)
--- NOTE | 2021-04-08 11:44 | P.PCN_ITS ---
Date/Time/Diagnoses Date of procedure: 04/08/21 Time of procedure: 11:44 Pre-procedure diagnosis: 1. HNP WITH RADICULAR FEATURES, 2. MULTILEVEL CENTRAL STENOSIS, Post-procedure diagnosis: same Procedure Notes Procedure: 1. FLUOROSCOPICALLY GUIDED CONTRAST CONTROLLED INTERLAMINAR EPIDURAL STEROID INJECTION - L3/4 Indications: Elena is referred by Dr. Parrish for treatment of Bilateral Foraminal Stenosis L>R LE symptoms. Physician: Gama Lechuga Total Fluoroscopy time (seconds): 4 Total sedation minutes: 8 Complications: none Procedure in detail & Post-procedure care: FINDINGS Multilevel Central Spinal Stenosis with Nerve Root Compression DESCRIPTION OF PROCEDURE Fluoroscopically guided, contrast-controlled L3/4 translaminar epidural steroid injection. Following review of allergy and review of potential side effects and complications, including, but not necessarily limited to, infection, allergic reaction, local tissue breakdown, temporary as well as permanent nerve injury, paralysis, stroke and possible , the patient indicated that the patient understood and agreed to proceed. An informed consent document was signed by the patient, witnessed by a nurse, and placed in the patient's chart. Additionally, other treatment options including modalities, medications, and physical therapy were reviewed with the patient. After review of previous anaesthesic history and IV conscious sedation the patient was deemed safe to proceed with today?s procedure with IV conscious sedation as ASA class II designation. Safety time-out was performed to confirm patient ID, procedure to be performed and site of procedure. IV sedation was accomplished with a combination of 2mg of Versed and 50mcg of Fentanyl was administered by the RN after DO order, titrated to patient comfort during the course of the procedure while the patient remained responsive to all verbal commands. In the prone position, following sterile prep and drape of the lumbar region, the L3/4 translaminar space was identified fluoroscopically. The skin was anesthetized via a 25-gauge, 1.5-inch needle with 1% lidocaine solution. At this point, a 22-gauge short bevel spinal needle was atraumatically introduced and advanced under fluoroscopic guidance into the region of the L3/4 translaminar space. Depth was confirmed on lateral view. Radiological data, including multiple fluoroscopic views of the lumbar spine, reveal a spinal needle at the L3/4 translaminar space. Lateral views then show placement of the needle in the epidural space. Subsequent views show contrast material flowing superiorly and inferiorly in the epidural space. No vascular or intrathecal uptake is observed. At this point, using loss of resistance technique with saline and air, the epidural space was entered. This was confirmed following negative aspiration with injection of approximately 1.5 cc of Isovue 200, showing excellent epidural flow without vascular or intrathecal uptake. At this point, 1cc of 1% lidocaine solution combined with 3cc or 20mg of dexamethasone and 6mg of betamethasone was injected without incident. The patient tolerated the procedure well without signs or symptoms of complications prior to transfer to the recovery area continued monitoring without incident. The patient was then transferred to the recovery area where they were observed for an appropriate period of time after the injection. The patient reported a VAS score of 6 prior to the procedure and a post- procedure VAS of 0. POST OP INSTRUCTIONS The patient was provided a Pain Log to continue to record their response to the target-specific procedure prior to follow-up visit with their referring physician. Additionally, specific post-injection care instructions and a contact number to our office were provided if concerns arise regarding possible complications associated with the procedure are suspected.
== END 2021-04-08 12:15 | disposition home or self-care (01) ==
LOC: RAD 09:53
PROVIDERS: PCP Family Medicine; Referring Provider Physical Medicine & Rehabilitation; Visit Provider Physical Medicine & Rehabilitation
DX: M51.16 Intervertebral disc disorders with radiculopathy, lumbar region (principal); M48.061 Spinal stenosis, lumbar region without neurogenic claudication
CPT/HCPCS: 62323; J0702; J1100; J2250; J3010

== ENCOUNTER → 2021-09-22 12:52 | Outpatient (CLI) | payer MEDICARE, OTHER, SELFPAY ==
[2021-03-28 03:00] VITALS: BMI 30.6
[2021-09-22 14:38] LABS: COVID19 -Nasal RAPID Negative (Negative)
== END ==
PROVIDERS: PCP Family Medicine; Visit Provider Physical Medicine & Rehabilitation
DX: Z20.822 Contact with and (suspected) exposure to COVID-19 (principal)
CPT/HCPCS: 87635; C9803

== ENCOUNTER 2021-09-23 09:48 | Outpatient (CLI) | payer MEDICARE, OTHER, SELFPAY ==
[2021-03-28 03:00] VITALS: BMI 30.6
[2021-09-23] VITALS (10 sets, daily range): BP systolic 101–163; BP diastolic 52–102; PULSE 84–91; RESP 17–21; TEMP 36.4; O2SAT 95–98
--- NOTE | 2021-09-23 09:49 | DI.RAD.S_ITS ---
PROCEDURE: PAIN L/S FACET INJ/BLK 1ST BALJINDER COMPARISON: [facility], , PAIN L/S FACET INJ/BLK 1ST BALJINDER, 01/16/2020, 13:00. INDICATIONS: SPONDYLOSIS FINDINGS: Fluoroscopic spot filming was performed to verify placement of spinal needles on both sides at the L2, L3, and L4 levels, as labeled on the films. Appropriate location of the needle tips was confirmed by injection of iodinated contrast. IMPRESSION: Intraprocedural examination within normal limits. Dictated by: Cheko Andrade M.D. on 09/23/2021 at 10:53 Approved by: Cheko Andrade M.D. on 09/23/2021 at 10:53
[2021-09-23] MEDS: fentaNYL 250 MCG/5 ML INJ 50 MCG IV (10:53)
[2021-09-23] MEDS: LIDOCAINE 1% 20 ML (10:57)
[2021-09-23] MEDS: BUPIVACAINE 0.5% (PF) VIAL 5 ML INJ (10:57)
[2021-09-23] MEDS: IOPAMIDOL 15 ML VIAL 3 ML INJ (10:57)
[2021-09-23] MEDS: MIDAZOLAM 5 MG/5 ML VIAL IV (11:01)
--- NOTE | 2021-09-23 11:16 | P.PCN_ITS ---
Date/Time/Diagnoses Date of procedure: 09/23/21 Time of procedure: 11:16 Pre-procedure diagnosis: 1. FACET ARTHROPATHY Post-procedure diagnosis: same Procedure Notes Procedure: 1. BILATERAL L2, L3, L4 DIAGNOSTIC MB BLOCKS Indications: Elena is referred by Dr. Parrish for treatment of Bilateral Axial LBP. Physician: Gama Lechuga Total Fluoroscopy time (seconds): 17 Total sedation minutes: 14 Complications: none Procedure in detail & Post-procedure care: DESCRIPTION OF PROCEDURE Fluoroscopically guided, contrast-controlled bilateral L2, L3, L4 medial branch blocks with 0.5cc of 0.5% Marcaine. Following review of allergy and review of potential side effects and complications, including, but not necessarily limited to, infection, allergic reaction, local tissue breakdown, nerve injury, paralysis, stroke and possible , the patient indicated that the patient understood and agreed to proceed. An informed consent document was signed by the patient, witnessed by a nurse, and placed in the patient's chart. After review of previous anaesthesic history and IV conscious sedation the patient was deemed safe to proceed with today's procedure with IV conscious sedation as ASA class II designation. Safety time-out was performed to confirm patient ID, procedure to be performed and site of procedure. IV sedation was accomplished with a combination of 5mg of Versed and 50mcg of Fentantyl was ad ministered by the RN after DO order, titrated to patient comfort during the course of the procedure while the patient remained responsive to all verbal commands In the prone position, following sterile prep and drape of the lumbar region, the right L2, L3, L4 anatomical location of the medial branch of the dorsal ramus was identified fluoroscopically. Subsequently an anesthetic skin wheal using 1% lidocaine solution was initiated at each of the anatomical spots. Subsequently then a 22-gauge 3.5-inch spinal needle was atraumatically introduced and advanced under fluoroscopic guidance at each of the corresponding sites at the right L2, L3, L4 MB. After negative aspiration, 0.2cc of Isovue 200 was injected, confirming placement without vascular or intrathecal uptake. Subsequently then 0.5cc of 0.5% Marcaine solution was injected at each of the corresponding sites at the right L2, L3, L4 medial branch locations. The identical procedure was replicated on the left. The patient tolerated the procedure well without signs or symptoms of complications. The patient tolerated the procedure well without signs or symptoms of complications prior to transfer to the recovery area continued monitoring without incident. Post-procedure, the patient was monitored initiating provocative activities to measure the amount of relief from block of the facetogenic pain. The patient reported a VAS of 7 prior to the procedure and a post-procedure VAS of 1. It has been a pleasure to assist in the diagnostic and therapeutic care of your patient. POST OP INSTRUCTIONS The patient was provided with a Pain Log to complete over the next several hours and subsequent days prior to the patient's follow up with the ordering physician. If the patient has delicatessen slicer relief to the solution applied, then they may be a candidate for medial branch rhizotomy. The patient is aware, was provided, once again, with a Pain Log and will follow up with the referring physician for review and clinical correlation
== END 2021-09-23 11:46 | disposition home or self-care (01) ==
PROVIDERS: PCP Family Medicine; Referring Provider Physical Medicine & Rehabilitation; Visit Provider Physical Medicine & Rehabilitation
DX: M47.816 Spondylosis without myelopathy or radiculopathy, lumbar region (principal)
CPT/HCPCS: 64493; 64494; 99152; J2250; J3010

== ENCOUNTER → 2021-10-23 09:04 | Outpatient (CLI) | payer MEDICARE, OTHER, SELFPAY ==
[2021-03-28 03:00] VITALS: BMI 30.6
--- NOTE | 2021-10-23 09:07 | DI.ECHO.S_ITS ---
[facility] +---------+ : : [address] : : : : [place], : : : : [place] [address] : : : : Phone: [phone] + [facility]-3439 Echocardiogram Report + + :Name: ALEXIS GARCÍA Study Date: 10/23/2021 Height: 61 in : :[facility] ReadingLocation: Weight: 179 lb : : Gender: Female BSA: 1.8 m2 : :: 1945 Age: 76 yrs BP: 145/64 mmHg: :Reason For Study: CP, OLD [place] : : Performed By: Costa Salinas : :Referring: LICO MARTINEZ : + + Interpretation Summary 1) Normal left venricular size, thickness, wall motion, and systolic function (EF 60-65%). 2) Normal right ventricular size and function. 3) No significant valvular abnormalities. 4) No prior Echo available for comparison. Procedure: A two-dimensional transthoracic echocardiogram with color flow and Doppler was performed. The study quality was technically adequate. There is no prior echocardiogram noted for this patient. The patient was in normal sinus rhythm during the exam. Left Ventricle: The left ventricle is normal in size. There is normal left ventricular wall thickness. The ejection fraction is estimated to be 60-65%. There are no focal wall motion abnormalities. Right Ventricle: The right ventricle is normal in size and function. Atria: Both atria are normal in size. There is no Doppler evidence for an atrial septal defect. Mitral Valve: There is mild mitral annular calcification. There is no mitral regurgitation noted. Aortic Valve: The aortic valve is trileaflet. The aortic valve opens well. No aortic regurgitation is present. Tricuspid Valve: The tricuspid valve is normal in structure and function. There is mild tricuspid regurgitation. The right ventricular systolic pressure is estimated to be at least 31 mmHg based on an estimated right atrial pressure of 3 mm Hg. Pulmonic Valve: The pulmonic valve is not well seen, but is grossly normal. There is no pulmonic valvular regurgitation. Great Vessels: The aortic root is normal size. The dimensions of the ascending aorta are normal. The pulmonary artery is normal size. The IVC is of normal diameter and collapses greater than 50% with a sniff. This suggests a low right atrial pressure of 3 mm Hg. Pericardium/ Pleura There is no pericardial effusion. There is no pleural effusion. MMode/2D Measurements & Calculations LVIDd: 3.8 cm LVOT diam: 1.9 cm LVIDs: 2.1 cm Ao root diam: 3.1 cm IVSd: 0.91 cm asc Aorta Diam: 3.3 cm LVPWd: 0.85 cm Ao Arch Diam (Prox Trans): 2.3 cm LV pablo. diameter/BSA (cm/m^2): 2.1 LV sys. diameter/BSA (cm/m^2): 1.1 FS: 45.5 % EPSS: 0.46 cm LA A2 area: 15.2 cm2 RA long axis: 4.5 cm LA A4 area: 15.3 cm2 RA area: 12.3 cm2 LA length (vol): 5.3 cm RA vol: 28.4 ml LA vol: 37.5 ml RA : 15.8 ml/m2 LA vol index: 20.8 ml/m2 TAPSE: 1.5 cm IVC diam: 1.3 cm Doppler Measurements & Calculations Ao V2 max: 177.4 cm/sec LVOT Max Navarro: 114.1 cm/sec Ao V2 mean: 138.6 cm/sec LV V1 max P.2 mmHg Ao V2 VTI: 36.9 cm LV V1 VTI: 25.7 cm Ao max P.6 mmHg Ao mean P.2 mmHg RAINA(I,D): 1.9 cm2 MV E max navarro: 81.9 cm/sec RAINA(V,D): 1.8 cm2 MV A max navarro: 116.6 cm/sec RAINA indexed to BSA (cm^2/m^2): 1.1 MV E/A: 0.70 sev ratio: 0.70 Med Peak E' Navarro: 5.6 cm/sec E/E' med: 14.6 Lat Peak E' Navarro: 5.9 cm/sec E/E' lat: 13.9 E/e' average: 14.2 MV dec time: 0.20 sec TR max navarro: 264.9 cm/sec TR max P.1 mmHg PA V2 max: 95.0 cm/sec SV(LVOT): 70.8 ml PA V2 mean: 72.5 cm/sec PA mean P.2 mmHg PA pr(Accel): 53.3 mmHg Reading Physician:06:36 PM
--- NOTE | 2021-10-23 15:16 | P.PCN_ITS ---
Cardiac Stress Test Report Referral & Results Indication: chest pain Rest ECG: sinus rhythm Procedure Note: katina scan stress test Impression: after katina inj had minimal dyspnea, no chest discomfort; baseline ecg sinus rhythm; no significant st/t changes after katina inj compared to baseline, no aminoph needed. mibi scan pending, film crew member to review, Rashaad JEFFRIES Please note: Actual ECG tracings can be found in the PACS system.
--- NOTE | 2021-10-23 18:32 | DI.NM.S_ITS ---
DATE OF SERVICE: 10/23/2021 PROCEDURE: Pharmacological perfusion study. INDICATION: Chest pain with underlying hypertension and hyperlipidemia. RADIOPHARMACEUTICAL: 25.0 millicurie technetium-99m Myoview IV was injected at stress and 12.2 millicurie technetium-99m Myoview IV was injected at rest. CARDIAC STRESS: The patient underwent IV Lexiscan perfusion study under the supervision of attending staff. She remained hemodynamically stable. Blood pressure 148/80. The patient developed minimal dyspnea. No chest pain. Baseline rhythm was sinus. During stress, no convincing ischemic changes pain seen. No significant arrhythmias seen. RAW DATA: There is increased subdiaphragmatic activity. GATED STUDY: Stress LV ejection fraction 88 percent without any obvious wall motion abnormalities. Resting end-diastolic volume 68 mL. TID ratio 1.00, which is within normal limits. Lung/heart ratio 0.35, which is within normal limits. MYOCARDIAL PERFUSION SCAN: Stress supine and resting supine images revealed normal myocardial perfusion. CONCLUSIONS: This is a normal myocardial perfusion study without any obvious ischemia or infarction. Preserved left ventricular function. No significant ischemic electrocardiographic changes. No significant arrhythmias. Overall, this is a low-risk myocardial perfusion scan. Elena Rodriguez - KAREN/amos/terence doc#: [id number]/job#: [id number] dd: 10/23/2021 17:34:00 dt: 10/23/2021 18:13:00 DICTATING /COPIES TO: Alex Blackwell MD COPIES MNE: ANDREW;
== END ==
PROVIDERS: PCP Family Medicine; Referring Provider Internal Medicine Cardiovascular Disease; Visit Provider Internal Medicine Cardiovascular Disease
DX: I07.1 Rheumatic tricuspid insufficiency (principal); R07.9 Chest pain, unspecified; I25.2 Old myocardial infarction; I10 Essential (primary) hypertension; E78.5 Hyperlipidemia, unspecified
CPT/HCPCS: 78452; 93017; 93306; A9502; J2785

== ENCOUNTER → 2021-12-15 11:09 | Outpatient (CLI) | payer MEDICARE, OTHER, SELFPAY ==
[2021-03-28 03:00] VITALS: BMI 30.6
[2021-12-15 12:23] LABS: COVID19 -Nasal RAPID Negative (Negative)
== END ==
PROVIDERS: PCP Family Medicine; Visit Provider Physical Medicine & Rehabilitation
DX: C91.10 Chronic lymphocytic leukemia of B-cell type not having achieved remission (principal); M54.81 Occipital neuralgia; M41.80 Other forms of scoliosis, site unspecified; M47.812 Spondylosis without myelopathy or radiculopathy, cervical region; M50.223 Other cervical disc displacement at C6-C7 level; M47.816 Spondylosis without myelopathy or radiculopathy, lumbar region; M51.26 Other intervertebral disc displacement, lumbar region; Z20.822 Contact with and (suspected) exposure to COVID-19
CPT/HCPCS: 64405; 64450; 87635; 99215; C9803; J1100

== ENCOUNTER 2021-12-16 07:06 | Outpatient (CLI) | payer MEDICARE, OTHER, SELFPAY ==
[2021-03-28 03:00] VITALS: BMI 30.6
[2021-12-16] VITALS (9 sets, daily range): BP systolic 130–179; BP diastolic 60–72; PULSE 70–79; RESP 18–26; TEMP 36.4; O2SAT 90–98
--- NOTE | 2021-12-16 07:10 | DI.RAD.S_ITS ---
PROCEDURE: PAIN L/S FACET INJ/BLK 1ST BALJINDER COMPARISON: None. INDICATIONS: SPONDYLOSIS FINDINGS: Access needles localized to the bilateral L2-L3, L3-L4 and L4-L5 neural foramina. Injection of small amount of contrast material demonstrates needle tips are in a extra thecal location. IMPRESSION: Access needle tips at bilateral L2-L3, L3-L4 and L4-L5 neural foramina for bilateral L2, L3 and L4 medial branch block. Dictated by: Josi Coughlin MD, PhD on 12/16/2021 at 12:30 Approved by: Josi Coughlin MD, PhD on 12/16/2021 at 12:31
[2021-12-16] MEDS: MIDAZOLAM 2 MG/2 ML VIAL (08:31)
[2021-12-16] MEDS: MIDAZOLAM 2 MG/2 ML VIAL IV (08:36)
[2021-12-16] MEDS: IOPAMIDOL 15 ML VIAL INJ (08:37)
[2021-12-16] MEDS: BUPIVACAINE 0.5% (PF) VIAL 30 ML (08:37)
[2021-12-16] MEDS: LIDOCAINE 1% 20 ML (08:38)
--- NOTE | 2021-12-16 08:52 | P.PCN_ITS ---
Date/Time/Diagnoses Date of procedure: 12/16/21 Time of procedure: 08:52 Pre-procedure diagnosis: 1. FACET ARTHROPATHY Post-procedure diagnosis: same Procedure Notes Procedure: 1. BILATERAL L2, L3, L4 DIAGNOSTIC MB BLOCKS Indications: Elena is referred by Dr. Parrish for treatment of Bilateral Axial LBP. Physician: Gama Lechuga Total Fluoroscopy time (seconds): 15 Total sedation minutes: 17 Complications: none Procedure in detail & Post-procedure care: DESCRIPTION OF PROCEDURE Fluoroscopically guided, contrast-controlled bilateral L2, L3, L4 medial branch blocks with 0.5cc of 2% Lidocaine. Following review of allergy and review of potential side effects and complications, including, but not necessarily limited to, infection, allergic reaction, local tissue breakdown, nerve injury, paralysis, stroke and possible , the patient indicated that the patient understood and agreed to proceed. An informed consent document was signed by the patient, witnessed by a nurse, and placed in the patient's chart. After review of previous anaesthesic history and IV conscious sedation the patient was deemed safe to proceed with today's procedure with IV conscious sedation as ASA class II designation. Safety time-out was performed to confirm patient ID, procedure to be performed and site of procedure. IV sedation was accomplished with a combination of 4mg of Versed was administered by the RN afte r DO order, titrated to patient comfort during the course of the procedure while the patient remained responsive to all verbal commands In the prone position, following sterile prep and drape of the lumbar region, the right L2, L3, L4 anatomical location of the medial branch of the dorsal ramus was identified fluoroscopically. Subsequently an anesthetic skin wheal using 1% lidocaine solution was initiated at each of the anatomical spots. Subsequently then a 22-gauge 3.5-inch spinal needle was atraumatically introduced and advanced under fluoroscopic guidance at each of the corresponding sites at the right L2, L3, L4 MB. After negative aspiration, 0.2cc of Isovue 200 was injected, confirming placement without vascular or intrathecal uptake. Subsequently then 0.5cc of 2% Lidocaine solution was injected at each of the corresponding sites at the right L2, L3, L4 medial branch locations. The identical procedure was replicated on the left. The patient tolerated the procedure well without signs or symptoms of complications. The patient tolerated the procedure well without signs or symptoms of complications prior to transfer to the recovery area continued monitoring without incident. Post-procedure, the patient was monitored initiating provocative activities to measure the amount of relief from block of the facetogenic pain. The patient reported a VAS of 7 prior to the procedure and a post-procedure VAS of 1. It has been a pleasure to assist in the diagnostic and therapeutic care of your patient. POST OP INSTRUCTIONS The patient was provided with a Pain Log to complete over the next several hours and subsequent days prior to the patient's follow up with the ordering physician. 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 The patient is aware, was provided, once again, with a Pain Log and will follow up with the referring physician for review and clinical correlation
== END 2021-12-16 09:10 | disposition home or self-care (01) ==
LOC: RAD 07:08
PROVIDERS: PCP Family Medicine; Referring Provider Physical Medicine & Rehabilitation; Visit Provider Physical Medicine & Rehabilitation
DX: M47.816 Spondylosis without myelopathy or radiculopathy, lumbar region (principal)
CPT/HCPCS: 64493; 64494; 99152; J2250

== ENCOUNTER → 2022-04-13 08:49 | Outpatient (CLI) | payer MEDICARE, OTHER, SELFPAY ==
[2021-03-28 03:00] VITALS: BMI 30.6
--- NOTE | 2022-04-13 08:50 | DI.RAD.S_ITS ---
PROCEDURE: XR LUMBAR SPINE MIN 4V INDICATIONS: BACK PAIN TECHNIQUE: 5 views of the lumbar spine were acquired, including bilateral oblique views peer COMPARISON: , , XR LUMBAR SPINE MIN 4V, 05/15/2020, 11:23. FINDINGS: Bones: 5 nonrib-bearing vertebrae are present. There is [id number] rightward curvature of lumbar spine centered at L3-4 level. Degenerative endplate changes and bilateral facet arthrosis throughout visualized lower thoracic spine and lumbar spine is seen. No vertebral body compression fractures. No suspicious bony lesions. Soft tissues: Overlying bowel gas pattern is normal. No suspicious soft tissue calcifications. Oblique images: No pars defects. IMPRESSION: Mild scoliosis as above. Degenerative disc disease throughout lumbar spine. No acute compression fracture or significant spondylolisthesis. No pars defects. Overall findings are not significantly changed from previous study. Dictated by: Jadon Rodriguez M.D. on 04/13/2022 at 11:21 Approved by: Jadon Rodriguez M.D. on 04/13/2022 at 11:22
--- NOTE | 2022-04-13 08:50 | DI.RAD.S_ITS ---
PROCEDURE: XR CERVICAL SPINE 4V OR 5V INDICATIONS: NECK PAIN TECHNIQUE: 5 views of the cervical spine acquired. COMPARISON: None. FINDINGS: Bones: No fractures or dislocations to the T1 level. Mild degenerative endplate changes and bilateral facet hypertrophic changes are noted throughout cervical spine. 3 mm anterolisthesis of C3 on C4 and C4 on C5 is seen. 2 mm anterolisthesis of C5 on C6 is also noted. Oblique images demonstrate bilateral bony foraminal stenosis at C4-5 level. Soft tissues: No prevertebral soft tissue swelling. IMPRESSION: Grade 1 anterolisthesis at C3-4 through C5-6 levels as above. No fracture or dislocation. Mild degenerative disc disease throughout cervical spine. Suggestion of mild bilateral bony foraminal stenosis at C4-5 level. Dictated by: Jadon Rodriguez M.D. on 04/13/2022 at 11:20 Approved by: Jadon Rodriguez M.D. on 04/13/2022 at 11:21
== END ==
PROVIDERS: PCP Family Medicine; Referring Provider Physical Medicine & Rehabilitation; Visit Provider Physical Medicine & Rehabilitation
DX: M41.80 Other forms of scoliosis, site unspecified (principal); M47.816 Spondylosis without myelopathy or radiculopathy, lumbar region; M51.26 Other intervertebral disc displacement, lumbar region; M48.02 Spinal stenosis, cervical region; M54.81 Occipital neuralgia; M41.86 Other forms of scoliosis, lumbar region; M51.36 Other intervertebral disc degeneration, lumbar region; M47.892 Other spondylosis, cervical region; M50.30 Other cervical disc degeneration, unspecified cervical region; M50.223 Other cervical disc displacement at C6-C7 level; C91.10 Chronic lymphocytic leukemia of B-cell type not having achieved remission; Z68.34 Body mass index [BMI] 34.0-34.9, adult
CPT/HCPCS: 64405; 64450; 72050; 72110; 99214; J1100

== ENCOUNTER 2022-05-05 07:33 | Outpatient (CLI) | payer MEDICARE, OTHER, SELFPAY ==
[2021-03-28 03:00] VITALS: BMI 30.6
[2022-05-05] VITALS (14 sets, daily range): BP systolic 118–178; BP diastolic 57–83; PULSE 60–81; RESP 18–21; TEMP 36; O2SAT 95–97
--- NOTE | 2022-05-05 07:39 | DI.RAD.S_ITS ---
PROCEDURE: PAIN L/S MED/LAT N RFA BILAT INDICATIONS: SPONDYLOSIS COMPARISON: [facility], , PAIN L/S MED/LAT N RFA BILAT, 05/21/2020, 8:27. FINDINGS: Fluoroscopic spot filming was performed to verify placement of spinal needles on on both sides at the L2, L3, and L4 levels, as labeled on the films. IMPRESSION: Images during rhizotomy within normal limits. Dictated by: Cheko Andrade M.D. on 05/05/2022 at 9:13 Approved by: Cheko Andrade M.D. on 05/05/2022 at 9:14
[2022-05-05] MEDS: LIDOCAINE 1% 20 ML INJ (08:50)
[2022-05-05] MEDS: BUPIVACAINE 0.5% (PF) VIAL 5 ML INJ (08:50)
[2022-05-05] MEDS: MIDAZOLAM 2 MG/2 ML VIAL 4 MG IV (08:55)
--- NOTE | 2022-05-05 09:15 | P.PCN_ITS ---
Date/Time/Diagnoses Date of procedure: 05/05/22 Time of procedure: 09:15 Pre-procedure diagnosis: 1. RECALCITRANT FACET ARTHROPATHY Post-procedure diagnosis: same Procedure Notes Procedure: 1. BILATERAL l2, L3, L4 MEDIAL BRANCH RADIOFREQUENCY NEUROTOMY Indications: Elena is referred by Dr. Parrish for treatment of facet arthropathy. Physician: Gama Lechuga Total Fluoroscopy time (seconds): 25 Total sedation minutes: 34 Complications: none Procedure in detail & Post-procedure care: DESCRIPTION OF PROCEDURE Bilateral L2, L3, L4 medial branch radiofrequency neurotomy The patient is well known to this clinic having undergone previous facet injections with good but temporary relief. The patient has experienced appropriate, concordant relief with previous facet and median branch blocks but the patient's pain has been recalcitrant to further conservative measures. Therefore, based upon the patient's relief and persistent symptoms, the patient is considered an appropriate candidate for facet rhizotomy. All of the patient's questions regarding the risks versus benefits of the procedure, including, but not limited to, bleeding, infection, temporary as well as lasting nerve injury, paralysis, stroke, and , as well treatment alternatives were answered to satisfaction. After obtaining informed consent, denial of pertinent drug allergies, as well as being made aware of the potential risks of bleeding, infection, spinal cord trauma, paralysis, temporary and permanent nerve damage, seizure, stroke, and possible , the patient was brought to the fluoroscopy suite and positioned prone on the fluoroscopy table. The lumbar region was prepped with Betadine and covered with a fenestrated drape in the usual sterile fashion. Appropriate monitors applied including pulse oximeter, pulse, and blood pressure for regular monitoring throughout the procedure. After review of previous anaesthesic history and IV conscious sedation the patient was deemed safe to proceed with today's procedure with IV conscious sedation as ASA class II designation. Safety time-out was performed to confirm patient ID, procedure to be performed and site of procedure. IV sedation was accomplished with a combination of 4mg of Versed administered by the RN after DO order, titrated to patient comfort during the course of the procedure while the patient remained responsive to all verbal commands. After local infiltration using 1% lidocaine, under fluoroscopic guidance, a 10- cm RF insulated needle with a 10-mm active tip was positioned parallel to the junction of the right the superior articulating process where the L4 medial branch resides. Needle placement was confirmed with motor stimulation of .5v on the right which produced local stimulation without radicular component. The stimulation was then increased to 2v with, once again, only local multifidus stimulation without radicular component. The needle was then removed and the identical procedure was performed along the length of the right L3 medial branch with motor stimulation at .7v on the right. The identical procedure was once again performed along the length of the right L2 and medial branch with motor stimulation of .5v on the right. The medial branches were then anesthetised with 0.5% marcaine. This was then followed by two discreet lesions performed at 80 degrees Celsius for 90 seconds each. The identical procedures were repeated on the left. The patient tolerated the procedure well without signs or symptoms of complications prior to transfer to the recovery area continued monitoring without incident. The patient was then transferred to the recovery area where they were observed for an appropriate period of time after the injection. The patient reported a VAS score of 9 prior to the procedure and a post-procedure VAS of 0. POST OP INSTRUCTIONS The patient was provided a Pain Log to continue to record the patient's response to the target-specific procedure prior to the patient's follow-up visit with the referring physician. Additionally, specific post-injection care instructions and a contact number to our office were provided if concerns arise regarding possible complications associated with the procedure are suspected.
== END 2022-05-05 09:40 | disposition home or self-care (01) ==
PROVIDERS: PCP Family Medicine; Referring Provider Physical Medicine & Rehabilitation; Visit Provider Physical Medicine & Rehabilitation
DX: M47.816 Spondylosis without myelopathy or radiculopathy, lumbar region (principal)
CPT/HCPCS: 64635; 64636; 99152; 99153; J2250

== ENCOUNTER → 2022-07-02 12:33 | Outpatient (ROUT) | payer MEDICARE, OTHER, SELFPAY ==
[2021-03-28 03:00] VITALS: BMI 30.6
[2022-07-02 13:29] LABS: Influenza A - CEPHEID Flu A POSITIVE (NEGATIVE); Influenza B - CEPHEID Flu B NEGATIVE (NEGATIVE); Respiratory Syncytial Virus Negative (Negative)
[2022-07-02 13:30] LABS: COVID-19 CEPHEID 4-PLEX PCR Negative (Negative)
== END ==
PROVIDERS: PCP Family Medicine; Visit Provider Family Medicine
DX: R05.9 Cough, unspecified (principal); R50.9 Fever, unspecified
CPT/HCPCS: 0241U

== ENCOUNTER 2022-08-13 09:22 | Outpatient (CLI) | payer MEDICARE, OTHER, SELFPAY ==
[2021-03-28 03:00] VITALS: BMI 30.6
[2022-08-13] VITALS (9 sets, daily range): BP systolic 104–145; BP diastolic 54–79; PULSE 76–90; RESP 16–22; TEMP 36.6; O2SAT 93–98
--- NOTE | 2022-08-13 09:25 | DI.RAD.S_ITS ---
PROCEDURE: PAIN SI JOINT INJECTION BALJINDER COMPARISON: [facility], CR, XR LUMBAR SPINE MIN 4V, 04/13/2022, 9:07. [facility], XA, PAIN L/S MED/LAT N RFA BILAT, 05/05/2022, 8:36. INDICATIONS: SACROILIAC DISORDER FINDINGS: Fluoroscopic spot filming was performed to verify placement of spinal needles involving both sacroiliac joints. Appropriate location of the needle tips was confirmed by injection of iodinated contrast. IMPRESSION: Intraprocedural examination demonstrating appropriate positions of the needles. Dictated by: Cheko Andrade M.D. on 08/13/2022 at 11:45 Approved by: Cheko Andrade M.D. on 08/13/2022 at 11:46
[2022-08-13] MEDS: IOPAMIDOL 15 ML VIAL 3 ML INJ (11:02)
[2022-08-13] MEDS: BETAMETHASONE 30 MG/5 ML MDV 12 MG INJ (11:03)
[2022-08-13] MEDS: BUPIVACAINE 0.5% (PF) 30 ML VIAL 5 ML INJ (11:03)
[2022-08-13] MEDS: MIDAZOLAM 2 MG/2 ML VIAL 4 MG IV (11:06)
[2022-08-13] MEDS: LIDOCAINE 1% (PF) 5 ML INJ (11:07)
--- NOTE | 2022-08-13 11:16 | P.PCN_ITS ---
Date/Time/Diagnoses Date of procedure: 08/13/22 Time of procedure: 11:16 Pre-procedure diagnosis: Sacroiliac joint pain/DJD Post-procedure diagnosis: same Procedure Notes Procedure: Fluoroscopic guided contrast controlled bilateral sacroiliac joint injection Indications: Elena is referred by Dr. Parrish for treatment of bilateral sacroiliac joint DJD Physician: Gama Lechuga Total Fluoroscopy time (seconds): 16 Total sedation minutes: 15 Complications: none Procedure in detail & Post-procedure care: Description of procedure Fluoroscopic guided, contrast controlled bilateral sacroiliac joint injection Following review of allergies and review of potential side effects and complications, including, but not necessarily limited to, infection, allergic reaction, local tissue breakdown, temporary as well as permanent nerve injury, paralysis, stroke and possible , the patient indicated that they understood and agreed to proceed. An informed consent was signed by the patient, witnessed by a nurse, and placed in the patient's chart. Additionally, other treatment options including modalities, medications, and physical therapy were reviewed with the patient. After review of previous anaesthesic history and IV conscious sedation the patient was deemed safe to proceed with today?s procedure with IV conscious sedation as ASA class II designation. Safety time-out was performed to confirm patient ID, procedure to be performed and site of procedure. IV sedation was accomplished with a combination of 4mg Versed were administered by the RN after DO order, titrated to patient comfort during the course of the procedure while the patient remained responsive to all verbal commands In the prone position following sterile prep and drape of the pelvic region, the hyper lucency on in the inferior aspect of the sacroiliac joint was identified fluoroscopically the skin was anesthetized be a 25 gauge 1.5 inch needle with approximately 2cc of 1% lidocaine solution. At this point, a 22 gauge 3 in sp inal needle was atraumatically introduced and advanced under fluoroscopic guidance into the inferior aspect of the right sacroiliac joint. Following negative aspiration, approximately 0.3cc of Isovue-300 was injected confirming intra-articular placement without vascular uptake. Radiographic data, including multiple fluoroscopic views of the pelvis, reveals a spinal needle in the sacroiliac joint hyper lucent zone. Subsequent view show flow contrast tear superiorly and inferiorly within the joint capsule without vascular intrathecal uptake. At this point a total of 1cc of 0.5% Marcaine was combined with 1cc of 6mg of betamethasone was injected without incident. Attention was then refocused the left sacroiliac joint where the procedure was replicated. The procedure tolerated the procedure well without signs or symptoms of complications prior to transfer to the recovery area continued monitoring without incident. The patient was then transferred to the recovery area with a bur observed for an appropriate time after the injection. The patient reverted a vas score of 7 prior to the procedure and post-procedure vas of 1. Postop instructions The patient was provided with a pain like to continue to record the patient's response to the target specific procedure prior to the patient's follow-up visit with the referring physician. Additionally, specific post injection care instructions and a contact number to our office were provided if concerns arise regarding the possible complications associated with procedure are suspected.
--- NOTE | 2022-08-13 12:07 | PC.NURSE ---
1120 Patient sedated upon return to pre-post room. Able to wake with physical stimuli but falls back asleep quickly. 1136 Patient with stable VSS but remains very drowsy. Will continue to hold until she is more wakeful at baseline. 1209 Patient awake, still sleepy but alert and oriented without dozing off. Up to WC with SBA, steady gait. Ok to discharge.
== END 2022-08-13 12:15 | disposition home or self-care (01) ==
LOC: RAD 09:23
PROVIDERS: PCP Family Medicine; Referring Provider Physical Medicine & Rehabilitation; Visit Provider Physical Medicine & Rehabilitation
DX: M53.3 Sacrococcygeal disorders, not elsewhere classified (principal); M46.1 Sacroiliitis, not elsewhere classified
CPT/HCPCS: 27096; 99152; J0702; J2250

== ENCOUNTER → 2022-11-03 15:18 | Outpatient (CLI) | payer MEDICARE, OTHER, SELFPAY ==
[2021-03-28 03:00] VITALS: BMI 30.6
[2022-11-03 17:04] LABS: BUN Creatinine Ratio 24.8 (6-22); Blood Urea Nitrogen 25 mg/dL (7-17); Estimated Glomerular Filt Rate 58 mL/min (>60)
== END ==
PROVIDERS: PCP Family Medicine; Referring Provider Surgery; Visit Provider Surgery
DX: K43.9 Ventral hernia without obstruction or gangrene (principal); K43.2 Incisional hernia without obstruction or gangrene
CPT/HCPCS: 36415; 82565; 84520; 99213

== ENCOUNTER 2022-11-12 12:42 | Outpatient (CLI) | payer MEDICARE, OTHER, SELFPAY ==
[2021-03-28 03:00] VITALS: BMI 30.6
[2022-11-12] VITALS (8 sets, daily range): BP systolic 107–170; BP diastolic 54–80; PULSE 78–102; RESP 15–22; TEMP 36.3; O2SAT 95–98
--- NOTE | 2022-11-12 12:44 | DI.RAD.S_ITS ---
PROCEDURE: PAIN L INTERLAMINAR/CAUDAL INJ INDICATIONS: SPONDYLOSIS COMPARISON: [facility], , PAIN L INTERLAMINAR/CAUDAL INJ, 04/08/2021, 11:37. FINDINGS: Fluoroscopic spot filming was performed to verify placement of a spinal needle at the L4-L5 level. Appropriate location of the needle tip was confirmed by injection of iodinated contrast. IMPRESSION: Intraprocedural examination within normal limits. Dictated by: Cheko Andrade M.D. on 11/12/2022 at 13:35 Approved by: Cheko Andrade M.D. on 11/12/2022 at 13:36
[2022-11-12] MEDS: MIDAZOLAM 2 MG/2 ML VIAL IV (13:46)
[2022-11-12] MEDS: BUPIVACAINE 0.25% (PF) VIAL 2 ML INJ (13:52)
[2022-11-12] MEDS: BETAMETHASONE 30 MG/5 ML MDV 6 MG INJ (13:52)
[2022-11-12] MEDS: DEXAMETHASONE 10 MG/ML VIAL 20 MG INJ (13:53)
[2022-11-12] MEDS: IOPAMIDOL 15 ML VIAL 3 ML INJ (13:53)
--- NOTE | 2022-11-12 14:01 | P.PCN_ITS ---
Date/Time/Diagnoses Date of procedure: 11/12/22 Time of procedure: 14:01 Pre-procedure diagnosis: 1. HNP WITH RADICULAR FEATURES, 2. MULTILEVEL CENTRAL STENOSIS, Post-procedure diagnosis: same Procedure Notes Procedure: 1. FLUOROSCOPICALLY GUIDED CONTRAST CONTROLLED INTERLAMINAR EPIDURAL STEROID INJECTION - L3/4 Indications: Elena is referred by Dr. Parrish for treatment of Bilateral Foraminal Stenosis L>R LE symptoms. Physician: Gama Lechuga Total Fluoroscopy time (seconds): 5 Total sedation minutes: 11 Complications: none Procedure in detail & Post-procedure care: FINDINGS Multilevel Central Spinal Stenosis with Nerve Root Compression DESCRIPTION OF PROCEDURE Fluoroscopically guided, contrast-controlled L3/4 translaminar epidural steroid injection. Following review of allergy and review of potential side effects and complications, including, but not necessarily limited to, infection, allergic reaction, local tissue breakdown, temporary as well as permanent nerve injury, paralysis, stroke and possible , the patient indicated that the patient understood and agreed to proceed. An informed consent document was signed by the patient, witnessed by a nurse, and placed in the patient's chart. Additionally, other treatment options including modalities, medications, and physical therapy were reviewed with the patient. After review of previous anaesthesic history and IV conscious sedation the patient was deemed safe to proceed with today?s procedure with IV conscious sedation as ASA class II designation. Safety time-out was performed to confirm patient ID, procedure to be performed and site of procedure. IV sedation was accomplished with a combination of 2mg of Versed was administered by the RN after DO order, titrated to patient comfort during the course of the procedure while the patient remained responsive to all verbal commands. In the prone position, following sterile prep and drape of the lumbar region, the L3/4 translaminar space was identified fluoroscopically. The skin was anesthetized via a 25-gauge, 1.5-inch needle with 1% lidocaine solution. At this point, a 22-gauge short bevel spinal needle was atraumatically introduced and advanced under fluoroscopic guidance into the region of the L3/4 translaminar space. Depth was confirmed on lateral view. Radiological data, including multiple fluoroscopic views of the lumbar spine, reveal a spinal needle at the L3/4 translaminar space. Lateral views then show placement of the needle in the epidural space. Subsequent views show contrast material flowing superiorly and inferiorly in the epidural space. No vascular or intrathecal uptake is observed. At this point, using loss of resistance technique with saline and air, the epidural space was entered. This was confirmed following negative aspiration with injection of approximately 1.5 cc of Isovue 200, showing excellent epidural flow without vascular or intrathecal uptake. At this point, 1cc of 1% lidocaine solution combined with 3cc or 20mg of dexamethasone and 6mg of betamethasone was injected without incident. The patient tolerated the procedure well without signs or symptoms of complications prior to transfer to the recovery area continued monitoring without incident. The patient was then transferred to the recovery area where they were observed for an appropriate period of time after the injection. The patient reported a VAS score of 6 prior to the procedure and a post- procedure VAS of 0. POST OP INSTRUCTIONS The patient was provided a Pain Log to continue to record their response to the target-specific procedure prior to follow-up visit with their referring physician. Additionally, specific post-injection care instructions and a contact number to our office were provided if concerns arise regarding possible complications associated with the procedure are suspected.
== END 2022-11-12 14:30 | disposition home or self-care (01) ==
PROVIDERS: PCP Family Medicine; Referring Provider Physical Medicine & Rehabilitation; Visit Provider Physical Medicine & Rehabilitation
DX: M51.16 Intervertebral disc disorders with radiculopathy, lumbar region (principal); M48.061 Spinal stenosis, lumbar region without neurogenic claudication
CPT/HCPCS: 62323; 99152; J0702; J1100; J2250; J3490

== ENCOUNTER → 2023-04-26 11:31 | Outpatient (CLI) | payer MEDICARE, OTHER, SELFPAY ==
[2021-03-28 03:00] VITALS: BMI 30.6
--- NOTE | 2023-04-26 | DI.RAD.S_ITS ---
PROCEDURE: XR WRIST LT MIN 3V INDICATIONS: fall, left wrist pain TECHNIQUE: 4 views of the wrist were acquired. COMPARISON: None. FINDINGS: Bones: No fractures or dislocations. No suspicious bony lesions. Osteoarthritic changes of the 1st carpometacarpal joint. Scaphoid view: No fracture. Soft tissues: No suspicious soft tissue calcifications. IMPRESSION: No acute osseous abnormality. If pain persists with conservative management, consider repeat x-ray in 10-14 days or cross-sectional imaging. Dictated by: Gilbert Dill M.D. on 04/26/2023 at 13:03 Approved by: Gilbert Dill M.D. on 04/26/2023 at 13:03
== END ==
PROVIDERS: PCP Family Medicine; Referring Provider Family Medicine; Visit Provider Family Medicine
DX: M25.532 Pain in left wrist (principal)
CPT/HCPCS: 73110

== ENCOUNTER 2023-05-20 12:36 | Outpatient (CLI) | payer MEDICARE, OTHER, SELFPAY ==
[2021-03-28 03:00] VITALS: BMI 30.6
[2023-05-20] VITALS (9 sets, daily range): BP systolic 108–157; BP diastolic 53–67; PULSE 77–97; RESP 14–23; TEMP 36; O2SAT 91–96
--- NOTE | 2023-05-20 12:40 | DI.RAD.S_ITS ---
PROCEDURE: PAIN L INTERLAMINAR/CAUDAL INJ INDICATIONS: SPONDYLOSIS COMPARISON: [facility], XA, PAIN L INTERLAMINAR/CAUDAL INJ, 11/12/2022, 13:51. FINDINGS: Fluoroscopic spot filming was performed to verify placement of spinal needles at the L3-L4 level(s), as labeled on the films. Appropriate location(s) of the needle tip(s) was confirmed by injection of iodinated contrast. IMPRESSION: Intraoperative guidance provided. Dictated by: Channing Lan M.D. on 05/20/2023 at 21:04 Approved by: Channing Lan M.D. on 05/20/2023 at 21:04
[2023-05-20] MEDS: MIDAZOLAM 2 MG/2 ML VIAL IV (13:39)
[2023-05-20] MEDS: BETAMETHASONE 30 MG/5 ML MDV 6 MG INJ (13:42)
[2023-05-20] MEDS: DEXAMETHASONE 10 MG/ML VIAL INJ (13:42)
[2023-05-20] MEDS: BUPIVACAINE 0.25% (PF) VIAL 2 ML INJ (13:43)
[2023-05-20] MEDS: iopamidoL 15 ML VIAL 3 ML INJ (13:43)
--- NOTE | 2023-05-20 13:54 | P.PCN_ITS ---
Date/Time/Diagnoses Date of procedure: 05/20/23 Time of procedure: 13:54 Pre-procedure diagnosis: 1. HNP WITH RADICULAR FEATURES, 2. MULTILEVEL CENTRAL STENOSIS, Post-procedure diagnosis: same Procedure Notes Procedure: 1. FLUOROSCOPICALLY GUIDED CONTRAST CONTROLLED INTERLAMINAR EPIDURAL STEROID INJECTION - L3/4 Indications: Elena is referred by Dr. Parrish for treatment of Bilateral Foraminal Stenosis L>R LE symptoms. Physician: Gama Lechuga Total Fluoroscopy time (seconds): 13 Total sedation minutes: 14 Complications: none Procedure in detail & Post-procedure care: FINDINGS Multilevel Central Spinal Stenosis with Nerve Root Compression DESCRIPTION OF PROCEDURE Fluoroscopically guided, contrast-controlled L3/4 translaminar epidural steroid injection. Following review of allergy and review of potential side effects and complications, including, but not necessarily limited to, infection, allergic reaction, local tissue breakdown, temporary as well as permanent nerve injury, paralysis, stroke and possible , the patient indicated that the patient understood and agreed to proceed. An informed consent document was signed by the patient, witnessed by a nurse, and placed in the patient's chart. Additionally, other treatment options including modalities, medications, and physical therapy were reviewed with the patient. After review of previous anaesthesic history and IV conscious sedation the patient was deemed safe to proceed with today?s procedure with IV conscious sedation as ASA class II designation. Safety time-out was performed to confirm patient ID, procedure to be performed and site of procedure. IV sedation was accomplished with a combination of 2mg of Versed was administered by the RN after DO order, titrated to patient comfort during the course of the procedure while the patient remained responsive to all verbal commands. In the prone position, following sterile prep and drape of the lumbar region, the L3/4 translaminar space was identified fluoroscopically. The skin was anesthetized via a 25-gauge, 1.5-inch needle with 1% lidocaine solution. At this point, a 22-gauge short bevel spinal needle was atraumatically introduced and advanced under fluoroscopic guidance into the region of the L3/4 translaminar space. Depth was confirmed on lateral view. Radiological data, including multiple fluoroscopic views of the lumbar spine, reveal a spinal needle at the L3/4 translaminar space. Lateral views then show placement of the needle in the epidural space. Subsequent views show contrast material flowing superiorly and inferiorly in the epidural space. No vascular or intrathecal uptake is observed. At this point, using loss of resistance technique with saline and air, the epidural space was entered. This was confirmed following negative aspiration with injection of approximately 1.5 cc of Isovue 200, showing excellent epidural flow without vascular or intrathecal uptake. At this point, 1cc of 1% lidocaine solution combined with 2cc or 10mg of dexamethasone and 6mg of betamethasone was injected without incident. The patient tolerated the procedure well without signs or symptoms of complications prior to transfer to the recovery area continued monitoring without incident. The patient was then transferred to the recovery area where they were observed for an appropriate period of time after the injection. The patient reported a VAS score of 7 prior to the procedure and a post- procedure VAS of 1. POST OP INSTRUCTIONS The patient was provided a Pain Log to continue to record their response to the target-specific procedure prior to follow-up visit with their referring physician. Additionally, specific post-injection care instructions and a contact number to our office were provided if concerns arise regarding possible complications associated with the procedure are suspected.
== END 2023-05-20 14:18 | disposition home or self-care (01) ==
LOC: RAD 12:38
PROVIDERS: PCP Family Medicine; Referring Provider Physical Medicine & Rehabilitation; Visit Provider Physical Medicine & Rehabilitation
DX: M48.061 Spinal stenosis, lumbar region without neurogenic claudication; M51.16 Intervertebral disc disorders with radiculopathy, lumbar region
CPT/HCPCS: 62323; 99152; J0702; J1100; J2250; J3490

== ENCOUNTER 2023-07-08 14:36 | Outpatient (CLI) | payer MEDICARE, OTHER, SELFPAY ==
[2021-03-28 03:00] VITALS: BMI 30.6
[2023-07-08] VITALS (8 sets, daily range): BP systolic 116–197; BP diastolic 64–88; PULSE 74–139; RESP 11–97; TEMP 36.4; O2SAT 93–97
[2023-07-08] MEDS: MIDAZOLAM 2 MG/2 ML VIAL IV
--- NOTE | 2023-07-08 15:30 | DI.RAD.S_ITS ---
PROCEDURE: PAIN SI JOINT INJECTION BALJINDER INDICATIONS: SACROILIAC DISORDER COMPARISON: [facility], XA, PAIN SI JOINT INJECTION BALJINDER, 08/13/2022, 12:02. FINDINGS: Fluoroscopic spot filming was performed to verify placement of spinal needles at the right SI joint, as labeled on the films. Appropriate location(s) of the needle tip(s) was confirmed by injection of iodinated contrast. IMPRESSION: Fluoroscopic injection of the right SI joint. Dictated by: Yaneth Ardon M.D. on 07/08/2023 at 16:45 Approved by: Yaneth Ardon M.D. on 07/08/2023 at 16:45
[2023-07-08] MEDS: iopamidoL 15 ML VIAL 3 ML INJ (15:53)
[2023-07-08] MEDS: LIDOCAINE 1% 20 ML 5 ML INJ (15:54)
[2023-07-08] MEDS: BETAMETHASONE 30 MG/5 ML MDV 12 MG INJ (15:54)
[2023-07-08] MEDS: BUPIVACAINE 0.5% (PF) 10 ML VIAL 2 ML INJ (15:54)
--- NOTE | 2023-07-08 16:06 | P.PCN_ITS ---
Date/Time/Diagnoses Date of procedure: 07/08/23 Time of procedure: 16:06 Pre-procedure diagnosis: Sacroiliac joint pain/DJD Post-procedure diagnosis: same Procedure Notes Procedure: Fluoroscopic guided contrast controlled bilateral sacroiliac joint injection Indications: Elena is referred by Dr. Parrish for treatment of bilateral sacroiliac joint DJD Physician: Gama Lechuga Total Fluoroscopy time (seconds): 12 Total sedation minutes: 11 Complications: none Procedure in detail & Post-procedure care: Description of procedure Fluoroscopic guided, contrast controlled bilateral sacroiliac joint injection Following review of allergies and review of potential side effects and complications, including, but not necessarily limited to, infection, allergic reaction, local tissue breakdown, temporary as well as permanent nerve injury, paralysis, stroke and possible , the patient indicated that they understood and agreed to proceed. An informed consent was signed by the patient, witnessed by a nurse, and placed in the patient's chart. Additionally, other treatment options including modalities, medications, and physical therapy were reviewed with the patient. After review of previous anaesthesic history and IV conscious sedation the patient was deemed safe to proceed with today?s procedure with IV conscious sedation as ASA class II designation. Safety time-out was performed to confirm patient ID, procedure to be performed and site of procedure. IV sedation was accomplished with a combination of 2mg Versed were administered by the RN after DO order, titrated to patient comfort during the course of the procedure while the patient remained responsive to all verbal commands In the prone position following sterile prep and drape of the pelvic region, the hyper lucency on in the inferior aspect of the sacroiliac joint was identified fluoroscopically the skin was anesthetized be a 25 gauge 1.5 inch needle with approximately 2cc of 1% lidocaine solution. At this point, a 22 gauge 3 in sp inal needle was atraumatically introduced and advanced under fluoroscopic guidance into the inferior aspect of the right sacroiliac joint. Following negative aspiration, approximately 0.3cc of Isovue-300 was injected confirming intra-articular placement without vascular uptake. Radiographic data, including multiple fluoroscopic views of the pelvis, reveals a spinal needle in the sacroiliac joint hyper lucent zone. Subsequent view show flow contrast tear superiorly and inferiorly within the joint capsule without vascular intrathecal uptake. At this point a total of 1cc of 0.5% Marcaine was combined with 1cc of 6mg of betamethasone was injected without incident. Attention was then refocused the left sacroiliac joint where the procedure was replicated. The procedure tolerated the procedure well without signs or symptoms of complications prior to transfer to the recovery area continued monitoring without incident. The patient was then transferred to the recovery area with a bur observed for an appropriate time after the injection. The patient reverted a vas score of 7 prior to the procedure and post-procedure vas of 1. Postop instructions The patient was provided with a pain like to continue to record the patient's response to the target specific procedure prior to the patient's follow-up visit with the referring physician. Additionally, specific post injection care instructions and a contact number to our office were provided if concerns arise regarding the possible complications associated with procedure are suspected.
== END 2023-07-08 16:29 | disposition home or self-care (01) ==
PROVIDERS: PCP Family Medicine; Referring Provider Physical Medicine & Rehabilitation; Visit Provider Physical Medicine & Rehabilitation
DX: M53.3 Sacrococcygeal disorders, not elsewhere classified (principal); M46.1 Sacroiliitis, not elsewhere classified
CPT/HCPCS: 27096; 77002; 99152; J0702; J2250

== ENCOUNTER → 2023-10-21 10:33 | Outpatient (CLI) | payer MEDICARE, OTHER, SELFPAY ==
[2021-03-28 03:00] VITALS: BMI 30.6
--- NOTE | 2023-10-21 10:35 | DI.MRI.S_ITS ---
PROCEDURE: MR LUMBAR SPINE WO CON INDICATIONS: Exacerbation of low back pain status post fall TECHNIQUE: Noncontrast sagittal T1 spin echo and T2 fast echo, sagittal STIR, and T2 fast spin echo through the lumbar spine. In cases with scoliosis, additional coronal T2 fast spin echo may be performed. COMPARISON: [facility] Outside Film, MR, MR LUMBAR SPINE WITHOUT CONTRAST, 07/21/2019, 12:16. FINDINGS: Image quality: Excellent. Alignment and Curvature: There is normal bony alignment. Bone Marrow: Marrow is of normal overall signal. No acute vertebral body compression fractures. Spinal Cord: Conus medullaris terminates at the L1 level. Visualized cord demonstrates normal signal and size. Paraspinous Soft Tissues: No paravertebral masses. T12-L1: Normal appearance. L1-L2: Mild disc desiccation and height loss. Broad-based disc bulge. No canal stenosis. No foraminal narrowing. Findings are similar to the study dated 07/21/19. L2-L3: Severe disc desiccation and height loss. Moderate canal stenosis. Mild bilateral foraminal. There is a small posterior focal high-intensity zone noted. The extent of canal narrowing is slightly increased when compared with the 2019 study. L3-L4: Severe disc desiccation and height loss. Severe facet ligamentum flavum hypertrophy. Mild canal stenosis. Mild left foraminal narrowing. No right neural foraminal stenosis. The extent of degenerative disc disease is increased when compared with 2019. L4-L5: Disc height and signal is preserved. Severe facet ligamentum flavum hypertrophy. Mild disc bulge. Moderate canal stenosis. No foraminal narrowing. Canal stenosis is new when compared with the prior study. L5-S1: Disc height and signal is preserved. Moderate facet ligamentum flavum hypertrophy. No canal stenosis. No foraminal stenosis. IMPRESSION: 1. Disc desiccation and height loss at L3-4 is now severe in degree and is increased when compared with the study dated July 21, 2019. 2. Broad-based disc bulges and facet and ligamentum flavum hypertrophy with resultant moderate canal stenosis at L2-3, mild canal stenosis at L3-4 and moderate canal stenosis at L4-5. The degree of canal narrowing at L2-3 and L4-5 is increased from the 2019 study. 3. No significant foraminal stenosis of the lumbar spine. 4. Probable small annular fibrosis tear at L2-3. This was not definitely visualized on the prior study. Dictated by: Yaneth Ardon M.D. on 10/21/2023 at 13:15 Approved by: Yaneth Ardon M.D. on 10/21/2023 at 13:21
== END ==
LOC: MRI 10:34
PROVIDERS: PCP Family Medicine; Referring Provider Physical Medicine & Rehabilitation; Visit Provider Physical Medicine & Rehabilitation
DX: M51.26 Other intervertebral disc displacement, lumbar region (principal); M47.816 Spondylosis without myelopathy or radiculopathy, lumbar region; M51.36 Other intervertebral disc degeneration, lumbar region; M48.061 Spinal stenosis, lumbar region without neurogenic claudication
CPT/HCPCS: 72148

== ENCOUNTER 2023-11-12 12:15 | Emergency (ER) | payer MEDICARE, OTHER, SELFPAY ==
[2021-03-28 03:00] VITALS: BMI 30.6
[2023-11-12 12:20] VITALS: BP 207/87; PULSE 89; RESP 18; TEMP 36; O2SAT 96; BMI 32.3
--- NOTE | 2023-11-12 12:53 | ED_ITS ---
HPI - Back Pain/Injury <Yolanda Mcadams PA-C - Last Filed: 11/12/23 15:41> General Chief Complaint: Back Pain/Injury Stated Complaint: back pain, sent by Dr Parrish Time Seen by Provider: 11/12/23 12:53 Source: patient and family History of Present Illness HPI Narrative: Patient is a 78-year-old female with chronic conditions of type 2 diabetes presenting for evaluation of severe back pain worsening x2 days. Patient reports that she has been receiving injections in her back for 50 years. She is under care of Dr. Ellis as well as Dr. Lechuga for pain management. She had an MRI recently which showed disc bulging in her L 4 L5. She denies any numbness into her legs, but states that she is feeling pain moving into her right leg. She denies any weakness. Her blood pressure is quite high today, but she denies any chest pain or shortness of breath. She states she does have a headache, but she states that she always has a headache and has been working with Dr. Acosta on this and will be following up with a neurologist. She states she has occipital neuralgia. She reports that on Wednesday she in had increased walking which seemed to set off her recent flare of pain. She reports that she normally can control her pain at home with tramadol 50 mg, but she states that she has a only 2 tablets left and was advised by Dr. Hernandez his office to follow up in the ER for pain management. She was unable to get in touch with Dr. Lechuga'shahbaz today has his office was closed. She reports she is only taking 81 mg of aspirin this morning. She endorses increased pain with standing. She states it small movements such as elbow flexion extension knee flexion extension of cause increased pain throughout her back. She states that it has not worse on 1 side of the other, but there is pain straight across and up and down her back. She is not taking an anticoagulant. Related Data Home Medications Medication Instructions Recorded Confirmed albuterol sulfate 90 mcg/actuation 2 puff inhalation QID wheezing ##0 05/27/10 11/12/23 aerosol inhaler aspirin 81 mg tablet,delayed 81 mg PO DAILY ##0 05/27/10 11/12/23 release atorvastatin 40 mg tablet 40 mg PO BEDTIME ##0 05/27/10 11/12/23 ipratropium 18 mcg-albuterol 103 2 spray inhalation PRN PRN 05/27/10 11/12/23 mcg/actuation aerosol inhaler Wheezing ##0 nitroglycerin 0.4 mg sublingual 0.4 mg sublingual Q5M PRN Chest 05/27/10 11/12/23 tablet Pain ##0 docusate calcium 240 mg capsule 240 mg PO TID 12/18/19 11/12/23 fenofibrate nanocrystallized 145 145 mg PO DAILY 12/18/19 11/12/23 mg tablet gabapentin 600 mg tablet 600 mg PO TID 12/18/19 11/12/23 metoprolol succinate 25 mg 25 mg PO DAILY 12/18/19 11/12/23 tablet,extended release 24 hr (Toprol XL) ondansetron HCl 4 mg tablet 8 mg PO Q8H PRN Angina 12/18/19 11/12/23 (Zofran) venlafaxine 75 mg capsule,extended 150 mg PO BEDTIME 12/18/19 11/12/23 release 24 hr lansoprazole 30 mg capsule,delayed 30 mg PO BID 08/05/20 11/12/23 release naltrexone 50 mg tablet 4.5 mg PO DAILY 09/19/21 11/12/23 eletriptan 40 mg tablet 40 mg PO ONCE 12/15/21 11/12/23 levetiracetam 500 mg tablet 1,000 mg PO BID 11/03/22 11/12/23 (Keppra) lisinopril 5 mg tablet 5 mg PO BID 11/03/22 11/12/23 insulin aspart U-100 100 unit/mL 1 sliding scale dose SUBCUT DAILY 07/05/23 11/12/23 (3 mL) subcutaneous pen (Novolog FlexPen U-100 Insulin aspart) flash glucose sensor (FreeStyle #1 ea 11/10/23 11/12/23 Chris 2 Sensor kit) atorvastatin 40 mg tablet 40 mg PO DAILY 11/12/23 11/12/23 Previous Rx's Medication Instructions Recorded Glucometer and testing strips See Rx Instructions .Route 03/29/21 .COMPLEX #1 ea lancets (Lancets,Thin) #100 ea 03/29/21 pen needle, diabetic 31 gauge x #50 ea 03/29/21/ (Pen Needle) insulin glargine 100 unit/mL (3 30 unit (0.3 mL) SUBCUT 0800 #15 mL 05/09/21 mL) subcutaneous pen (Lantus Solostar U-100 Insulin) tramadol 50 mg tablet 50 mg PO Q8H PRN pain #7 tabs 11/12/23 Allergies Allergy/AdvReac Type Severity Reaction Status Date / Time duloxetine [From Cymbalta] Allergy Intermediate rash Verified 11/10/23 08:49 lactose Allergy Intermediate Rash Verified 11/10/23 08:49 omeprazole [From Prilosec] Allergy Intermediate rash Verified 11/10/23 08:49 Penicillins Allergy Unknown Verified 11/10/23 08:49 erythromycin base Allergy rash Verified 11/10/23 08:49 Sulfa (Sulfonamide Allergy Verified 11/10/23 08:49 Antibiotics) Review of Systems <Yolanda Mcadams PA-C - Last Filed: 11/12/23 15:41> Review of Systems Narrative: See HPI Patient History <Yolanda Mcadams PA-C - Last Filed: 11/12/23 15:41> Medical History Cardiac arrhythmia Sacral dysfunction Scoliosis due to degenerative disease of spine in adult patient Herniated nucleus pulposus, C6-7 Bilateral occipital neuralgia Cervicogenic headache Ankle fracture CLL (chronic lymphocytic leukemia) Occipital neuralgia of left side Herniated nucleus pulposus, L3-4 left Facet arthropathy, cervical Facet arthropathy, lumbar Cervical stenosis of spinal canal FH: cholecystectomy Hyperlipidemia Surgical History Hx of appendectomy H/O: hysterectomy Family History Father Hypertension COPD (chronic obstructive pulmonary disease) Alzheimer disease Heart disease Mother Multiple sclerosis Heart disease Hypertension Grandmother Heart disease Social History household members: spouse Smoking Status: Never smoker Smoking Status: Never smoker alcohol intake frequency: a few times a month Substance Use Type: does not use Exam <Yolanda Mcadams PA-C - Last Filed: 11/12/23 15:41> Initial Vital Signs Initial Vital Signs: Vital Signs Temperature 96.8 F L 11/12/23 12:20 Pulse Rate 89 11/12/23 12:20 Respiratory Rate 18 11/12/23 12:20 Blood Pressure 207/87 H 11/12/23 12:20 Pulse Oximetry 96 11/12/23 12:20 Oxygen Delivery Method Room Air 11/12/23 12:20 GENERAL: 78 year old patient appears stated age. Well-developed patient, in no acute distress. HEAD: Atraumatic. Normocephalic. EYES: Pupils equal round and reactive. Extraocular motions intact. No scleral icterus. No injection or drainage. NECK: Trachea midline. Non tender. No cervical lymphadenopathy RESPIRATORY: Speaking comfortably in normal tone of voice no increased work of breathing. EXTREMITIES: No edema or joint tenderness. 5/5 elbow flexion/extension strength, 5/5 knee flexion extension strength intact bilaterally BACK: Without deformity or crepitance. Tender to palpation of midline thoracic and lumbar spine as well as right and left paraspinal lumbar area NEURO: AOx3. CN 3 through 12 intact bilaterally, neurology physician strength equal bilaterally SKIN: No rash or erythema of visible areas <Cassidy Bob DO - Last Filed: 11/19/23 11:15> Initial Vital Signs Initial Vital Signs: Vital Signs Temperature 96.8 F L 11/12/23 12:20 Pulse Rate 89 11/12/23 12:20 Respiratory Rate 18 11/12/23 12:20 Blood Pressure 207/87 H 11/12/23 12:20 Pulse Oximetry 96 11/12/23 12:20 Oxygen Delivery Method Room Air 11/12/23 12:20 Course <Yolanda Mcadams PA-C - Last Filed: 11/12/23 15:41> Orders Ordered: Discontinued Medications Hydrocodone Bitart/Acetaminophen (Hydrocodone/Acet 5/325 Tablet) 1 tab PO NOW ONE Stop: 11/12/23 13:34 Last Admin: 11/12/23 13:41 Dose: 1 tab Documented By: KENAN Dexamethasone (Dexamethasone 10 Mg/Ml Vial) 10 mg PO NOW ONE Stop: 11/12/23 13:31 Last Admin: 11/12/23 13:52 Dose: 10 mg Documented By: KENAN Ketorolac Tromethamine (Ketorolac 30 Mg/Ml Vial) 30 mg IM NOW ONE Stop: 11/12/23 13:32 Last Admin: 11/12/23 13:41 Dose: 30 mg Documented By: CTS Vital Signs Vital signs: Vital Signs - 8 hr 11/12/23 12:20 11/12/23 14:36 Temperature 96.8 F L Pulse Rate 89 62 Respiratory Rate 18 18 Blood Pressure 207/87 H 180/76 H Pulse Oximetry 96 97 Oxygen Delivery Method Room Air Room Air <Cassidy Bob DO - Last Filed: 11/19/23 11:15> Orders Ordered: Discontinued Medications Hydrocodone Bitart/Acetaminophen (Hydrocodone/Acet 5/325 Tablet) 1 tab PO NOW ONE Stop: 11/12/23 13:34 Last Admin: 11/12/23 13:41 Dose: 1 tab Documented By: CTS Dexamethasone (Dexamethasone 10 Mg/Ml Vial) 10 mg PO NOW ONE Stop: 11/12/23 13:31 Last Admin: 11/12/23 13:52 Dose: 10 mg Documented By: CTS Ketorolac Tromethamine (Ketorolac 30 Mg/Ml Vial) 30 mg IM NOW ONE Stop: 11/12/23 13:32 Last Admin: 11/12/23 13:41 Dose: 30 mg Documented By: CTS Vital Signs Vital signs: Vital Signs - 8 hr 11/12/23 12:20 11/12/23 14:36 Temperature 96.8 F L Pulse Rate 89 62 Respiratory Rate 18 18 Blood Pressure 207/87 H 180/76 H Pulse Oximetry 96 97 Oxygen Delivery Method Room Air Room Air MDM - Back Pain/Injury <Yolanda Mcadams PA-C - Last Filed: 11/12/23 15:41> MDM Narrative Medical decision making narrative: Patient is a 78-year-old female with chronic history of back pain: Canal stenosis from L2-L5 as well as evidence of disc bulging presenting for evaluation of pain management. Over the last 2 days, she endorses increased pain [place] [employer] [place] She reports that she has to tramadol left which she generally uses to help control her pain. Physical exam shows intact neurological exam as well as intact strength bilaterally if patient's legs and arms. Her pain was significantly improved with treatment of Toradol, dexamethasone and hydrocodone/Tylenol. Advised patient to continue follow up with her primary care provider. I have given her a short duration of tramadol to take over the next several days as needed for severe pain. Recommend she returned to the ER if she should develop any bladder or bowel incontinence, weakness in her legs, severe worsening of her pain or other concerning signs or symptoms. Multiple etiologies for patient's symptoms considered including, but not limited to: Muscle spasm, canal stenosis, herniated disc, spinal abscess, epidural hematoma Prior Charts reviewed: Imaging reviewed: MRI lumbar spine 10/21/2023 Patient's symptoms improved over duration of stay with above-stated therapies. Findings and discharge diagnosis discussed with patient/family followed by verbalization of understanding Return precautions discussed with patient/family whom verbalize understanding of diagnosis and plan Discharge Plan Departure Patient Disposition: Home Clinical Impression: Back pain at L4-L5 level Activity Restrictions/Additional Instructions: You were diagnosed today with back pain. As we discussed, this is likely related to your chronic history of canal stenosis and disc bulging noted on MRI study done at the end of September. Your symptoms significantly improved today with treatment with Toradol, hydrocodone, Tylenol and dexamethasone steroid. I have provided you with a prescription of 50 mg of tramadol for the next few days since this has helped you with your pain in the past. I recommend you continue follow up with your primary care provider to continue discussion of treatment and further evaluation of back pain. I recommend you continue activity as tolerated. You may apply heat and do gentle stretches and weight-bearing as tolerated. Your blood pressure was also elevated today. It did improve after treatment of your pain. I recommend that you rest at home, check your blood pressure again and make sure to take your daily blood pressure medication and continue discussion with your primary care provider if remains elevated. Please return to the ER if he should develop any one-sided weakness, chest pain shortness for breath severe fatigue or lightheadedness or other concerning signs or symptoms. *What to do: *Please continue to take your regular medications as directed. [x ] New medication prescriptions sent to your pharmacy: [facility] [place] [ ] New medication written as a paper prescription [ ] No new medications given *Please follow up with your primary care provider in 2-3 days, call for an appointment. Let them know you were seen in the Emergency Department and that we ask that you be seen in follow up. We will electronically transmit a record of today's note if your PCP is in our system *If you do not have a primary care provider please contact the [facility] Resource line at [phone]. They will ask some questions about your medical history and help get you set up with a doctor in the community. *Return to Emergency Department if you should have any new, worsening or concerning symptoms, such as fever greater than 101 F, shaking chills, worsening pain, incontinence of stool or urine, weakness of your legs persistent vomiting or other bothersome symptoms Prescriptions: New tramadol 50 mg tablet 50 mg PO Q8H PRN (Reason: pain) Qty: 7 0RF Rx Instructions: May cause drowsiness No Action atorvastatin 40 mg Tablet 40 mg PO BEDTIME Qty: 0 aspirin 81 mg Tablet,Delayed Release (Dr/Ec) 81 mg PO DAILY Qty: 0 nitroglycerin 0.4 mg Tablet, Sublingual 0.4 mg SUBLINGUAL Q5M PRN (Reason: Chest Pain) Qty: 0 ipratropium-albuterol 18-103 mcg/actuation Aerosol 2 spray INHALATION PRN PRN (Reason: Wheezing) Qty: 0 albuterol sulfate 90 mcg/actuation Hfa Aerosol Inhaler 2 puff INHALATION QID Qty: 0 Lantus Solostar U-100 Insulin 100 unit/mL (3 mL) insulin pen 30 unit SUBCUT 0800 Qty: 15 3RF atorvastatin 40 mg tablet 40 mg PO DAILY (DME) pen needle, diabetic [Pen Needle] 31 gauge x 3/16 needle See Rx Instructions .Route Qty: 50 0RF Rx Instructions: As directed (DME) lancets [Lancets,Thin] Misc See Rx Instructions .Route Qty: 100 0RF Rx Instructions: As directed, QID testing Glucometer and testing strips See Rx Instructions .ROUTE .COMPLEX Qty: 1 0RF Rx Instructions: Glucometer and testing strips for testing 4x/day venlafaxine 75 mg capsule,extended release 24hr 150 mg PO BEDTIME gabapentin 600 mg tablet 600 mg PO TID metoprolol succinate [Toprol XL] 25 mg tablet extended release 24 hr 25 mg PO DAILY ondansetron HCl [Zofran] 4 mg tablet 8 mg PO Q8H PRN (Reason: Angina) docusate calcium 240 mg capsule 240 mg PO TID fenofibrate nanocrystallized 145 mg tablet 145 mg PO DAILY Rx Instructions: triglyde brand name levetiracetam [Keppra] 500 mg tablet 1,000 mg PO BID lansoprazole 30 mg capsule,delayed release(DR/EC) 30 mg PO BID naltrexone 50 mg tablet 4.5 mg PO DAILY eletriptan 40 mg tablet 40 mg PO ONCE lisinopril 5 mg tablet 5 mg PO BID insulin aspart U-100 [Novolog FlexPen U-100 Insulin] 100 unit/mL (3 mL) insulin pen 1 sliding scale dose SUBCUT DAILY Patient Comments: [NO ORIGINAL SIG] (DME) FreeStyle Chris 2 Sensor Kit See Rx Instructions .ROUTE .MEDSUPPLY Qty: 1 Patient Comments: [NO ORIGINAL SIG] Rx Instructions: As directed Referrals: Jose Alberto Parrish MD [Primary Care Provider] - Stand Alone Forms: Patient Portal/API ED Sign-out <Cassidy Bob DO - Last Filed: 11/19/23 11:15> Cosign ED Attending Cosignature Attestation: I was available for consultation.
[2023-11-12] MEDS: HYDROCODONE/ACET 5/325 TABLET 1 TAB PO (13:41)
[2023-11-12] MEDS: KETOROLAC 30 MG/ML VIAL IM (13:41)
[2023-11-12] MEDS: DEXAMETHASONE 10 MG/ML VIAL PO (13:52)
[2023-11-12 14:36] VITALS: BP 180/76; PULSE 62; RESP 18; O2SAT 97
== END 2023-11-12 15:37 | disposition home or self-care (01) ==
PROVIDERS: Emergency Provider Physician Assistant; PCP Family Medicine
DX: M54.50 Low back pain, unspecified (principal); Z79.899 Other long term (current) drug therapy
CPT/HCPCS: 96372; 99283; J1100; J1885

== ENCOUNTER 2023-12-16 07:37 | Outpatient (CLI) | payer MEDICARE, OTHER, SELFPAY ==
[2021-03-28 03:00] VITALS: BMI 30.6
[2023-12-16] VITALS (8 sets, daily range): BP systolic 108–187; BP diastolic 52–88; PULSE 76–88; RESP 16–24; TEMP 36.3; O2SAT 94–99
--- NOTE | 2023-12-16 08:45 | DI.RAD.S_ITS ---
PROCEDURE: PAIN L INTERLAMINAR/CAUDAL INJ INDICATIONS: L2/3 TL L[place]EN COMPARISON: [facility], , PAIN L INTERLAMINAR/CAUDAL INJ, 05/20/2023, 13:45. FINDINGS: Fluoroscopic spot filming was performed to verify placement of spinal needles at the L2-L3 level(s), as labeled on the films. Appropriate location(s) of the needle tip(s) was confirmed by injection of iodinated contrast. IMPRESSION: L2-L3 intraoperative guidance. Dictated by: Alfie Estrada M.D. on 12/16/2023 at 15:39 Approved by: Alfie Estrada M.D. on 12/16/2023 at 15:39
[2023-12-16] MEDS: MIDAZOLAM 2 MG/2 ML VIAL IV (08:53)
[2023-12-16] MEDS: iopamidoL 15 ML VIAL 3 ML INJ (09:00)
[2023-12-16] MEDS: BUPIVACAINE 0.25% (PF) VIAL 2 ML INJ (09:00)
[2023-12-16] MEDS: DEXAMETHASONE 10 MG/ML VIAL INJ (09:01)
[2023-12-16] MEDS: BETAMETHASONE 30 MG/5 ML MDV 6 MG INJ (09:02)
--- NOTE | 2023-12-16 09:10 | P.PCN_ITS ---
Date/Time/Diagnoses Date of procedure: 12/16/23 Time of procedure: 09:10 Pre-procedure diagnosis: 1. HNP WITH RADICULAR FEATURES, 2. MULTILEVEL CENTRAL STENOSIS, Post-procedure diagnosis: same Procedure Notes Procedure: 1. FLUOROSCOPICALLY GUIDED CONTRAST CONTROLLED INTERLAMINAR EPIDURAL STEROID INJECTION - L2/3 Indications: Elena is referred by Dr. Parrish for treatment of Bilateral Foraminal Stenosis L>R LE symptoms. Physician: Gama Lechuga Total Fluoroscopy time (seconds): 8 Total sedation minutes: 13 Complications: none Procedure in detail & Post-procedure care: FINDINGS Multilevel Central Spinal Stenosis with Nerve Root Compression DESCRIPTION OF PROCEDURE Fluoroscopically guided, contrast-controlled L2/3 translaminar epidural steroid injection. Following review of allergy and review of potential side effects and complications, including, but not necessarily limited to, infection, allergic reaction, local tissue breakdown, temporary as well as permanent nerve injury, paralysis, stroke and possible , the patient indicated that the patient understood and agreed to proceed. An informed consent document was signed by the patient, witnessed by a nurse, and placed in the patient's chart. Additionally, other treatment options including modalities, medications, and physical therapy were reviewed with the patient. After review of previous anaesthesic history and IV conscious sedation the patient was deemed safe to proceed with today?s procedure with IV conscious sedation as ASA class II designation. Safety time-out was performed to confirm patient ID, procedure to be performed and site of procedure. IV sedation was accomplished with a combination of 2mg Versed administered by the RN after DO order, titrated to patient comfort during the course of the procedure while the patient remained responsive to all verbal commands. In the prone position, following sterile prep and drape of the lumbar region,the L2/3 translaminar space was identified fluoroscopically. The skin was anesthetized via a 25-gauge, 1.5-inch needle with 1% lidocaine solution. At this point, a 22-gauge short bevel spinal needle was atraumatically introduced and advanced under fluoroscopic guidance into the region of the L2/3 translaminar space. Depth was confirmed on lateral view. Radiological data, including multiple fluoroscopic views of the lumbar spine, re veal a spinal needle at the L2/3 translaminar space. Lateral views then show placement of the needle in the epidural space. Subsequent views show contrast material flowing superiorly and inferiorly in the epidural space. No vascular or intrathecal uptake is observed. At this point, using loss of resistance technique with saline and air, the epidural space was entered. This was confirmed following negative aspiration with injection of approximately 1.5 cc of Isovue 200, showing excellent epidural flow without vascular or intrathecal uptake. At this point, 1 cc of 1% lidocaine solution combined with 2cc or 10mg of dexamethasone and 6mg of betamethasone was injected without incident. The patient tolerated the procedure well without signs or symptoms of complications prior to transfer to the recovery area continued monitoring without incident. The patient was then transferred to the recovery area where they were observed for an appropriate period of time after the injection. The patient reported a VAS score of 6 prior to the procedure and a post-procedure VAS of 0. POST OP INSTRUCTIONS The patient was provided a Pain Log to continue to record their response to the target-specific procedure prior to follow-up visit with their referring physician. Additionally, specific post-injection care instructions and a contact number to our office were provided if concerns arise regarding possible complications associated with the procedure are suspected.
== END 2023-12-16 09:28 | disposition home or self-care (01) ==
LOC: RAD 07:38
PROVIDERS: PCP Family Medicine; Referring Provider Physical Medicine & Rehabilitation; Visit Provider Physical Medicine & Rehabilitation
DX: M51.16 Intervertebral disc disorders with radiculopathy, lumbar region (principal); M48.061 Spinal stenosis, lumbar region without neurogenic claudication
CPT/HCPCS: 62323; 99152; J0702; J1100; J2250; J3490

== ENCOUNTER 2024-07-30 22:38 | Emergency (ER) | payer MEDICARE, OTHER, SELFPAY ==
[2024-05-15 10:41] VITALS: BMI 30.6
[2024-07-30 22:53] VITALS: BP 229/107; PULSE 103; RESP 16; TEMP 36.4; O2SAT 98; BMI 31.9
--- NOTE | 2024-07-30 23:25 | PC.NURSE ---
Pt had a stimulator placed 06/19/24 at [facility]. Pt has had a VILA since then. Her surgeon and pcp are aware and scheduled blood patch to be placed in August. Pt vomited x1 today.
[2024-07-30 23:41] VITALS: PULSE 90; O2SAT 96
[2024-07-30 23:42] VITALS: BP 197/81; PULSE 88; O2SAT 95
[2024-07-31] VITALS: BP 180/87; PULSE 93; O2SAT 95
--- NOTE | 2024-07-31 00:26 | ED.HA ---
HPI - Headache General Chief Complaint: Headache Stated Complaint: vomiting, headache, Time Seen by Provider: 07/31/24 00:24 Source: patient, RN notes reviewed and old records reviewed Mode of arrival: Family Vehicle Limitations: no limitations History of Present Illness HPI Narrative: 79-year-old female history of diabetes type 2, chronic neck and back pain, hypertension, CLL, dyslipidemia who presents with complaint of persistent headaches since she had her neurostimulator for her lower back pain placed in late June. Patient states headaches started almost immediately afterwards has been persistent. She states does not seem to be positional. She states recently she started having little bit nausea she threw up tonight despite taking antiemetics which she has been prescribed. She has been taking [place] 5/325 twice daily. She has been following with her neurosurgery team they had plan to increase her [place]. There has been discussion of a blood patch but it has been canceled and rescheduled for August 31. Patient states she had a temperature of 99? F today but no other fevers. No cough cold or congestion. States she was noticed her vision has been a little bit more blurry since her surgery. Denies any new numbness tingling or weakness. No chest pain shortness of breath or other GI or urinary symptoms. Patient notes her neurostimulator has not been helpful for her back pain. Also notes she has had injections for occipital neuralgia/headaches in the past with Dr. Lechuga's had injections just before her surgery to prevent headaches. Patient presents today as she did throw up once today which he has not done in the past. She does express some frustration with her care team. Related Data Home Medications Medication Instructions Recorded Confirmed albuterol sulfate 90 mcg/actuation 2 puff inhalation QID wheezing ##0 05/27/10 05/22/24 aerosol inhaler aspirin 81 mg tablet,delayed 81 mg PO DAILY ##0 05/27/10 05/22/24 release atorvastatin 40 mg tablet 40 mg PO BEDTIME ##0 05/27/10 05/22/24 nitroglycerin 0.4 mg sublingual 0.4 mg sublingual Q5M PRN Chest 05/27/10 05/22/24 tablet Pain ##0 docusate calcium 240 mg capsule 240 mg PO TID 12/18/19 05/22/24 fenofibrate nanocrystallized 145 145 mg PO DAILY 12/18/19 05/22/24 mg tablet gabapentin 600 mg tablet 600 mg PO TID 12/18/19 05/22/24 metoprolol succinate 25 mg 25 mg PO DAILY 12/18/19 05/22/24 tablet,extended release 24 hr (Toprol XL) ondansetron HCl 4 mg tablet 8 mg PO Q8H PRN Angina 12/18/19 05/22/24 (Zofran) venlafaxine 75 mg capsule,extended 150 mg PO BEDTIME 12/18/19 05/22/24 release 24 hr lansoprazole 30 mg capsule,delayed 30 mg PO BID 08/05/20 05/22/24 release eletriptan 40 mg tablet 40 mg PO ONCE 12/15/21 05/22/24 levetiracetam 500 mg tablet 1,000 mg PO BID 11/03/22 05/22/24 (Keppra) lisinopril 5 mg tablet 5 mg PO BID 11/03/22 05/22/24 insulin aspart U-100 100 unit/mL 1 sliding scale dose SUBCUT DAILY 07/05/23 05/22/24 (3 mL) subcutaneous pen (Novolog FlexPen U-100 Insulin aspart) flash glucose sensor (FreeStyle #1 ea 11/10/23 05/22/24 Chris 2 Sensor kit) 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 meter,continuous #1 ea 02/09/24 05/22/24 (Dexcom G7 Tufting Machine Operator Single Needle) 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 sensor (Dexcom G7 #1 ea 02/09/24 05/22/24 Sensor device) fezolinetant 45 mg tablet (Veozah) 45 mg PO DAILY 02/09/24 05/22/24 pen needle, diabetic 31 gauge x #1,200 ea 02/09/24 05/22/24 5/16 (Easy Touch) ipratropium 20 mcg-albuterol 100 1 puff inhalation 4XD 05/22/24 05/22/24 mcg/actuation mist for inhalation (Combivent Respimat) Previous Rx's Medication Instructions Recorded Glucometer and testing strips See Rx Instructions .Route 03/29/21 .COMPLEX #1 ea lancets (Lancets,Thin) #100 ea 03/29/21 pen needle, diabetic 31 gauge x #50 ea 03/29/21 3/16 (Pen Needle) insulin glargine 100 unit/mL (3 30 unit (0.3 mL) SUBCUT 0800 #15 mL 05/09/21 mL) subcutaneous pen (Lantus Solostar U-100 Insulin) tramadol 50 mg tablet 50 mg PO Q8H PRN pain #7 tabs 11/12/23 meloxicam 7.5 mg tablet 7.5 mg PO BID PRN pain #10 tabs 07/31/24 Allergies Allergy/AdvReac Type Severity Reaction Status Date / Time duloxetine [From Cymbalta] Allergy Intermediate rash Verified 05/22/24 08:33 lactose Allergy Intermediate Rash Verified 05/22/24 08:33 omeprazole [From Prilosec] Allergy Intermediate rash Verified 05/22/24 08:33 Penicillins Allergy Unknown Verified 05/22/24 08:33 erythromycin base Allergy rash Verified 05/22/24 08:33 Sulfa (Sulfonamide Allergy Verified 05/22/24 08:33 Antibiotics) Review of Systems Review of Systems ROS Unobtainable: All systems reviewed & are unremarkable except as noted in HPI and below Patient History Medical History Cardiac arrhythmia Sacral dysfunction Scoliosis due to degenerative disease of spine in adult patient Herniated nucleus pulposus, C6-7 Bilateral occipital neuralgia Cervicogenic headache Ankle fracture CLL (chronic lymphocytic leukemia) Occipital neuralgia of left side Herniated nucleus pulposus, L3-4 left Facet arthropathy, cervical Facet arthropathy, lumbar Cervical stenosis of spinal canal FH: cholecystectomy Hyperlipidemia Surgical History Hx of appendectomy H/O: hysterectomy Family History Father Hypertension COPD (chronic obstructive pulmonary disease) Alzheimer disease Heart disease Mother Multiple sclerosis Heart disease Hypertension Grandmother Heart disease Social History household members: spouse Smoking Status: Never smoker Smoking Status: Never smoker alcohol intake frequency: a few times a month Exam Narrative Exam Narrative: GEN: well nourished, well appearing female, alert and oriented x 3, patient appears to be in mild distress. HEENT: Atraumatic, pupils are equal round reactive to light, extraocular movements are intact, nares are clear, TMs are clear with no fluid, there is no conjunctival pallor. Throat is clear without any exudates, erythema, tonsillar enlargement or uvular deviation, no facial droop, no meningeal signs. HEART: Regular rate and rhythm without murmur, clicks, rubs. Pulses are equal in upper and lower extremities LUNGS:Lungs clear to auscultation, no wheezes, rales, crackles, chest moves symmetrically ABD:bowel sounds normal, soft, non-tender, no guarding, rebound, rigidity, no masses noted, no hepatosplenomegaly :No CVA tenderness MSCL: Non-tender, no muscle atrophy, muscles strength 5/5 upper and lower extremities, full range of motion, normal gait NEURO:CN 2-12 intact, sensation normal, reflexes 2/4 upper and lower extremities. Initial Vital Signs Initial Vital Signs: Vital Signs Temperature 97.6 F 07/30/24 22:53 Pulse Rate 103 H 07/30/24 22:53 Respiratory Rate 16 07/30/24 22:53 Blood Pressure 229/107 H 07/30/24 22:53 Pulse Oximetry 98 07/30/24 22:53 Oxygen Delivery Method Room Air 07/30/24 22:53 Course Orders Ordered: ED Orders 07/31/24 00:45 CT head/brain wo con Stat 07/31/24 01:30 CBC Auto Diff [Complete Blood Count AUTO DIFF] Stat CMP [Comprehensive Metabolic Panel] Stat Discontinued Medications Ketorolac Tromethamine (Ketorolac 30 Mg/Ml Vial) 15 mg IV NOW ONE Stop: 07/31/24 00:46 Last Admin: 07/31/24 01:32 Dose: 15 mg Documented By: SB Vital Signs Vital signs: Vital Signs - 8 hr 07/30/24 22:53 07/30/24 23:41 07/30/24 23:42 Temperature 97.6 F Pulse Rate 103 H 90 Respiratory Rate 16 Blood Pressure 229/107 H 197/81 H Pulse Oximetry 98 96 Oxygen Delivery Method Room Air 07/30/24 23:42 07/31/24 00:00 07/31/24 00:00 Temperature Pulse Rate 88 93 H Respiratory Rate Blood Pressure 180/87 H Pulse Oximetry 95 95 Oxygen Delivery Method 07/31/24 00:30 07/31/24 00:30 07/31/24 01:30 Temperature Pulse Rate 88 74 Respiratory Rate Blood Pressure 193/91 H Pulse Oximetry 96 97 Oxygen Delivery Method 07/31/24 02:00 07/31/24 02:12 07/31/24 02:12 Temperature Pulse Rate 71 71 Respiratory Rate Blood Pressure 180/79 H Pulse Oximetry 96 96 Oxygen Delivery Method MDM - Headache Lab Data 07/31/24 01:30 07/31/24 01:30 Labs: Lab Results 07/31/24 Range/Units 01:30 WBC 11.4 H (4.5-11.0) X10^3/uL RBC 4.36 (4.0-5.2) X10^6/uL Hgb 12.7 (12.0-16.0) g/dL Hct 38.3 (36-46) % MCV 87.8 (80-100) fL MCH 29.1 (26-34) PG MCHC 33.2 (30-36) % RDW 14.1 (11.6-14.8) % Plt Count 232 (150-400) X10^3/uL Neut % (Auto) 42.4 L (50-75) % Lymph % (Auto) 50.4 H (25-40) % [place] % (Auto) 6.2 (3-14) % Eos % (Auto) 0.8 L (2-4) % Baso % (Auto) 0.2 (0-2) % Neut # (Auto) 4800 (6748-8385) /uL Lymph # (Auto) 5800 H (3045-0796) /uL [place] # (Auto) 700 (0-900) /uL Eos # (Auto) 100 (0-450) /uL Baso # (Auto) 0 (0-100) /uL Sodium 142 (137-145) mmol/L Potassium 3.8 (3.4-5.1) mmol/L Chloride 113 H (98-107) mmol/L Carbon Dioxide 22 (22-32) mmol/L BUN 22 H (7-17) mg/dL Creatinine 1.09 H (0.52-1.04) mg/dL Estimated GFR 52 L (>60) mL/min BUN/Creatinine Ratio 20.2 (6-22) Glucose 126 H (80-110) mg/dL Calcium 10.3 H (8.4-10.2) mg/dL Total Bilirubin 0.3 (0.2-1.3) mg/dL AST 41 H (14-36) IU/L ALT 32 (<35) IU/L Alkaline Phosphatase 53 (38-126) U/L Total Protein 6.5 (6.3-8.2) g/dL Albumin 4.0 (3.5-5.0) g/dL Globulin 2.5 (1.7-4.1) g/dL Albumin/Globulin Ratio 1.6 (1.0-2.8) Imaging Data CT scan - head: Radiologist's Impression: Close Head CT (Signed) KristiKandi harris - 07/31/24 Injection Lumbar, Sacrum (Signed) Alfie Estrada - 12/16/23 Lumbar Spine MRI (Signed) DuglasYaneth - 10/21/23 SI JT Injection (Signed) Yaneth Ardon - 07/08/23 Injection Lumbar, Sacrum (Signed) Channing Lan - 05/20/23 Wrist X-Ray (Signed) Gilbert Dill - 04/26/23 Injection Lumbar, Sacrum (Signed) Flatgap,Cheko - 11/12/22 SI JT Injection (Signed) Raymond,Cheko - 08/13/22 Injection Lumbar, Sacrum (Signed) Raymond,Cheko - 05/05/22 Lumbar Spine X-Ray (Signed) Jadon Rodriguez - 04/13/22 Cervical Spine X-Ray (Signed) Jadon Rodrigeuz - 04/13/22 Facet Joint Injection X-Ray (Signed) Josi Coughlin - 12/16/21 Radiology Report (Cancelled) Alex Blackwell - 10/23/21 Myocardial Perfusion Scan Nuc Med (Signed) You Blackwellu - 10/23/21 Echocardiogram Ultrasound (Signed) Alexandrea Martinez - 10/23/21 Facet Joint Injection X-Ray (Signed) Praveen Andradesse - 09/23/21 DI Result 07/01/21 Injection Lumbar, Sacrum (Signed) Flatgap,Cheko - 04/08/21 Telemetry Strips 03/27/21 Chest X-Ray (Signed) Daniel Mcclendon - 03/27/[address] (Signed) Jeffrey Leon - 07/16/20 Injection Lumbar, Sacrum (Signed) JuanpabloVincent - 05/21/20 Lumbar Spine X-Ray (Signed) Stephen Hart - 05/15/20 Facet Joint Injection X-Ray (Signed) Colby Lemons - 01/16/20 Ankle X-Ray (Signed) Jadon Rodriguez - 10/30/19 Ankle X-Ray (Signed) Navin Caballero - 10/18/19 Tibia/Fibula X-Ray (Signed) ShunMinto - 10/18/19 Tibia/Fibula X-Ray (Signed) Clint Hoffmannderic - 10/18/19 Ankle X-Ray (Signed) Clint Hoffmannderic - 10/18/19 Ankle X-Ray (Signed) ShunMinto - 10/18/[place] [address] [place] Scan Report Signed Patient: Elena Rodriguez MR#: [id number] : 1945 Acct:[id number] Age/Sex: 79 / F Date of Service: 07/31/24 Loc: ED Accession Number: [id number] Procedure: CT head/brain wo con Ordering Provider: Rissa Gaines D.O. PROCEDURE: CT HEAD/BRAIN WO CON INDICATIONS: VILA since neurostimulator in June TECHNIQUE: Noncontrast 4.5 mm thick angled axial sections acquired from the foramen magnum to the vertex, with coronal and sagittal reformats. For radiation dose reduction, the following was used: automated exposure control, adjustment of mA and/or kV according to patient size. COMPARISON: None. FINDINGS: Image quality: Diagnostic. CSF spaces: Basal cisterns are patent. No extra-axial fluid collections. The ventricles are symmetric in size and shape. Brain: No intracranial bleeds or masses. There is cerebral volume loss for age, with resultant ventricular and sulcal prominence. There are periventricular and deep white matter chronic small vessel ischemic changes. There is intracranial internal carotid artery atherosclerosis. Skull and face: Calvarium and visualized facial bones appear intact, without suspicious lesions. Sinuses: Visualized sinuses and mastoids are clear. IMPRESSION: No acute intracranial pathology. Approved by: Kandi Berry M.D.,Ph.D. on 07/31/2024 at 2:12 ? MDM Narrative Medical decision making narrative: 79-year-old female who describes prior history of headaches had occipital nerve block for these prior to having her neurostimulator placed but has had persistent headache since it was placed at the end of June. States it does not really seem to be positional but has not resolved. Patient has been taking [place] 5/325 with a minimal improvement her care team was going to increase this. She has also been prescribed antiemetics she took a dose today and threw up shortly thereafter. She has had nausea but no vomiting up to this point. She was febrile here in the department describes a temperature of 99? F at home but no other fevers or infectious symptoms. She notes little bit increased blurry vision but no other acute neurologic changes. Patient has not had any imaging of her head and does not relate any recent labs so these were obtained. Head CT shows no acute change. CBC shows a white count 11.4 sexually improved from patient's baseline looks like she runs around 13-14 frequently over the past several years patient does have a history of CLL hemoglobin is 12.7 platelets are 232. CMP shows normal sodium 142 potassium of 3.8 chloride 113 CO2 of 22 with a BUN 22 and a creatinine of 1.09 patient has been 1.04 and 1.01 September can October of 2022 calcium slightly high at 10.3 AST is 41 but otherwise normal LFTs Patient received Toradol, on recheck she is finding this improved. She was states not completely resolved but only a small area that is bothering her. She states she feels much better at this time. Blood pressure has not totally normalized but has not improved. Reviewed her findings from today. Discussed with patient she was going to follow up she was scheduled for a blood patch. She was reluctant to increase her hydrocodone but was interested in medication similar to Toradol we discussed she can try ibuprofen [id number] if inadequate can try meloxicam instead but would hold off on any ketorolac regularly. Discharge Plan Departure Patient Disposition: Home Clinical Impression: Headache Activity Restrictions/Additional Instructions: Follow up with your care team, I hope you find improvement in your symptoms. Your blood pressure was elevated today it did improve somewhat but follow up with Dr. Parrish if it continues to be elevated. Can try ibuprofen up to 600 mg every 6 hours for headaches if inadequate you can take meloxicam 1 tablet every 12 hours instead but I would not encourage you to take this medication every day. Prescription was sent to the [facility] pharmacy. Please return for fevers, worsening headaches, sudden vision changes, difficulty with speech, movement, persistent vomiting or other new or concerning changes. Prescriptions: New meloxicam 7.5 mg tablet 7.5 mg PO BID PRN (Reason: pain) Qty: 10 0RF No Action atorvastatin 40 mg Tablet 40 mg PO BEDTIME Qty: 0 aspirin 81 mg Tablet,Delayed Release (Dr/Ec) 81 mg PO DAILY Qty: 0 nitroglycerin 0.4 mg Tablet, Sublingual 0.4 mg SUBLINGUAL Q5M PRN (Reason: Chest Pain) Qty: 0 albuterol sulfate 90 mcg/actuation Hfa Aerosol Inhaler 2 puff INHALATION QID Qty: 0 Lantus Solostar U-100 Insulin 100 unit/mL (3 mL) insulin pen 30 unit SUBCUT 0800 Qty: 15 3RF tramadol 50 mg tablet 50 mg PO Q8H PRN (Reason: pain) Qty: 7 0RF Rx Instructions: May cause drowsiness (DME) pen needle, diabetic [Pen Needle] 31 gauge x 3/16 needle See Rx Instructions .Route Qty: 50 0RF Rx Instructions: As directed (DME) lancets [Lancets,Thin] Misc See Rx Instructions .Route Qty: 100 0RF Rx Instructions: As directed, QID testing Glucometer and testing strips See Rx Instructions .ROUTE .COMPLEX Qty: 1 0RF Rx Instructions: Glucometer and testing strips for testing 4x/day venlafaxine 75 mg capsule,extended release 24hr 150 mg PO BEDTIME gabapentin 600 mg tablet 600 mg PO TID metoprolol succinate [Toprol XL] 25 mg tablet extended release 24 hr 25 mg PO DAILY ondansetron HCl [Zofran] 4 mg tablet 8 mg PO Q8H PRN (Reason: Angina) docusate calcium 240 mg capsule 240 mg PO TID fenofibrate nanocrystallized 145 mg tablet 145 mg PO DAILY Rx Instructions: triglyde brand name levetiracetam [Keppra] 500 mg tablet 1,000 mg PO BID lansoprazole 30 mg capsule,delayed release(DR/EC) 30 mg PO BID eletriptan 40 mg tablet 40 mg PO ONCE lisinopril 5 mg tablet 5 mg PO BID insulin aspart U-100 [Novolog FlexPen U-100 Insulin] 100 unit/mL (3 mL) insulin pen 1 sliding scale dose SUBCUT DAILY Patient Comments: [NO ORIGINAL SIG] (DME) FreeStyle Chris 2 Sensor Kit See Rx Instructions .ROUTE .MEDSUPPLY Qty: 1 Patient Comments: [NO ORIGINAL SIG] Rx Instructions: As directed (DME) Dexcom G7 Sensor Device See Rx Instructions .ROUTE .MEDSUPPLY Qty: 1 Patient Comments: [NO ORIGINAL SIG] Rx Instructions: As directed Veozah 45 mg tablet 45 mg PO DAILY (DME) Dexcom G7 Tufting Machine Operator Single Needle Misc See Rx Instructions .ROUTE .MEDSUPPLY Qty: 1 Patient Comments: [NO ORIGINAL SIG] Rx Instructions: As directed (DME) pen needle, diabetic [Easy Touch] 31 gauge x 5/16 needle See Rx Instructions .ROUTE .MEDSUPPLY Qty: 1200 Patient Comments: [NO ORIGINAL SIG] Rx Instructions: As directed Combivent Respimat 20-100 mcg/actuation mist 1 puff inhalation 4XD Referrals: Jose Alberto Parrish MD [Primary Care Provider] - Stand Alone Forms: Patient Portal/API/Survey
[2024-07-31 00:30] VITALS: BP 193/91; PULSE 88; O2SAT 96
--- NOTE | 2024-07-31 00:45 | DI.CT.S_ITS ---
PROCEDURE: CT HEAD/BRAIN WO CON INDICATIONS: VILA since neurostimulator in June TECHNIQUE: Noncontrast 4.5 mm thick angled axial sections acquired from the foramen magnum to the vertex, with coronal and sagittal reformats. For radiation dose reduction, the following was used: automated exposure control, adjustment of mA and/or kV according to patient size. COMPARISON: None. FINDINGS: Image quality: Diagnostic. CSF spaces: Basal cisterns are patent. No extra-axial fluid collections. The ventricles are symmetric in size and shape. Brain: No intracranial bleeds or masses. There is cerebral volume loss for age, with resultant ventricular and sulcal prominence. There are periventricular and deep white matter chronic small vessel ischemic changes. There is intracranial internal carotid artery atherosclerosis. Skull and face: Calvarium and visualized facial bones appear intact, without suspicious lesions. Sinuses: Visualized sinuses and mastoids are clear. IMPRESSION: No acute intracranial pathology. Approved by: Kandi Berry M.D.,Ph.D. on 07/31/2024 at 2:12
[2024-07-31 01:30] VITALS: PULSE 74; O2SAT 97
[2024-07-31] MEDS: KETOROLAC 30 MG/ML VIAL 15 MG IV (01:32)
[2024-07-31 01:43] LABS: Add Manual Diff / Slide Review NO; Basophils Absolute Auto 0 /uL (0-100); Basophils Percent Auto 0.2 % (0-2); Eosinophils Absolute Auto 100 /uL (0-450); Eosinophils Percent Auto 0.8 % (2-4); Hematocrit 38.3 % (36-46); Hemoglobin 12.7 g/dL (12.0-16.0); Lymphocytes Absolute Auto 5800 /uL (1100-4500); Lymphocytes Percent Auto 50.4 % (25-40); Mean Corpuscular HGB Conc 33.2 % (30-36); Mean Corpuscular Hemoglobin 29.1 PG (26-34); Mean Corpuscular Volume 87.8 fL (80-100); Monocytes Absolute Auto 700 /uL (0-900); Monocytes Percent Auto 6.2 % (3-14); Neutrophils Absolute Auto 4800 /uL (1500-7000); Neutrophils Percent Auto 42.4 % (50-75); Platelet Count 232 X10^3/uL (150-400); Red Blood Cell Count 4.36 X10^6/uL (4.0-5.2); Red Cell Distribution Width 14.1 % (11.6-14.8); White Blood Cell Count 11.4 X10^3/uL (4.5-11.0)
[2024-07-31 02:00] VITALS: PULSE 71; O2SAT 96
[2024-07-31 02:00] LABS: Alanine Aminotransferase 32 IU/L (<35); Albumin Globulin Ratio 1.6 (1.0-2.8); Alkaline Phosphatase 53 U/L (38-126); Aspartate Aminotransferase 41 IU/L (14-36); BUN Creatinine Ratio 20.2 (6-22); Bilirubin Total 0.3 mg/dL (0.2-1.3); Blood Urea Nitrogen 22 mg/dL (7-17); Calcium 10.3 mg/dL (8.4-10.2); Carbon Dioxide 22 mmol/L (22-32); Chloride 113 mmol/L (98-107); Estimated Glomerular Filt Rate 52 mL/min (>60); Globulin 2.5 g/dL (1.7-4.1); Glucose 126 mg/dL (80-110); HEMOLYSIS < 15 (0-50); Potassium 3.8 mmol/L (3.4-5.1); Sodium 142 mmol/L (137-145); Total Protein 6.5 g/dL (6.3-8.2)
[2024-07-31 02:12] VITALS: BP 180/79; PULSE 71; O2SAT 96
== END 2024-07-31 03:04 | disposition home or self-care (01) ==
PROVIDERS: Emergency Provider Emergency Medicine; PCP Family Medicine
DX: R51.9 Headache, unspecified (principal); R11.2 Nausea with vomiting, unspecified; G89.29 Other chronic pain; M54.9 Dorsalgia, unspecified; M54.2 Cervicalgia; Z96.82 Presence of neurostimulator
CPT/HCPCS: 36415; 70450; 80053; 85025; 96374; 99284; J1885

== ENCOUNTER 2025-02-18 12:53 | Emergency (ER) | payer MEDICARE, OTHER, SELFPAY ==
[2024-08-01 10:27] VITALS: BMI 30.6
[2025-02-18] VITALS (42 sets, daily range): BP systolic 148–220; BP diastolic 65–100; PULSE 63–99; RESP 12–27; TEMP 36.7; O2SAT 95–99; BMI 28.7
--- NOTE | 2025-02-18 13:26 | EKG_ITS ---
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
[2025-02-18 13:48] LABS: Add Manual Diff / Slide Review NO; Hematocrit 38.0 % (36-46); Hemoglobin 12.6 g/dL (12.0-16.0); Lymphocytes Absolute Auto 6400 /uL (1100-4500); Mean Corpuscular HGB Conc 33.3 % (30-36); Mean Corpuscular Hemoglobin 29.0 PG (26-34); Mean Corpuscular Volume 87.1 fL (80-100); Platelet Count 256 X10^3/uL (150-400)
[2025-02-18 13:56] LABS: Alanine Aminotransferase 30 IU/L (<35); Albumin 4.2 g/dL (3.5-5.0); Albumin Globulin Ratio 1.5 (1.0-2.8); Alkaline Phosphatase 48 U/L (38-126); Blood Urea Nitrogen 14 mg/dL (7-17); Calcium 9.8 mg/dL (8.4-10.2); Carbon Dioxide 25 mmol/L (22-32); Chloride 108 mmol/L (98-107); Estimated Glomerular Filt Rate > 60 mL/min (>60); Globulin 2.8 g/dL (1.7-4.1); Glucose 139 mg/dL (70-99); HEMOLYSIS < 15 (0-50); Lipase 367 U/L (23-300); Potassium 4.6 mmol/L (3.4-5.1); Sodium 141 mmol/L (137-145); Total Protein 7.0 g/dL (6.3-8.2)
--- NOTE | 2025-02-18 13:59 | DI.CT.S_ITS ---
PROCEDURE: CT ABDOMEN PELVIS W CON INDICATIONS: epigastric abdominal pain TECHNIQUE: After the administration of intravenous contrast, axial sections acquired from the lung bases to the pubic symphysis. Coronal and sagittal reformats were performed. For radiation dose reduction, the following was used: automated exposure control, adjustment of mA and/or kV according to patient size. COMPARISON: None. FINDINGS: Image quality: Diagnostic. Lower Chest: No significant findings. ABDOMEN: Liver: No solid mass. Gallbladder: Surgically absent. Biliary ducts: Mild compensatory extrahepatic biliary ductal dilation is present. Pancreas: Mild atrophy without ductal dilation. There is an ill-defined hypoattenuating pancreatic tail mass which measures 12 x 7 x 4 mm and is best seen on axial image 42 and coronal image 56. Spleen: Size is within normal limits. A subcentimeter cyst is present. Adrenal Glands: No adrenal nodules. Kidneys and Ureters: No hydronephrosis. No solid mass. No complex renal cystic lesion which requires follow up. Stomach and Bowel: Normal colonic caliber, without significant wall thickening. Peritoneum: No abnormal intraperitoneal fluid. No free air. Ventral Wall: No significant ventral hernia. Abdominal Nodes: No retroperitoneal or mesenteric adenopathy by size criteria. Vessels: Aorta and inferior vena cava are normal in size. PELVIS: Pelvic Organs: The uterus is surgically absent. Ovaries are grossly normal.. Bladder: No bladder wall thickening. Pelvic Nodes: No enlarged lymph nodes. Miscellaneous: No inguinal hernias are seen. Bones: No aggressive osseous abnormality. IMPRESSION: No acute abdominal process. Specifically, no obstruction, diverticulitis, or urolithiasis. Pancreatic tail mass with features suspicious for an IPMN or other neoplasm. MRI is recommended for further characterization. Isolated splenic cystic lesion without aggressive features and most likely of little clinical significance. Attention on follow-up imaging is recommended. Dictated by: Yolanda Silva M.D. on 02/18/2025 at 13:37 Approved by: Yolanda Silva M.D. on 02/18/2025 at 13:50
[2025-02-18] MEDS: ONDANSETRON 4 MG/2 ML INJ IV (14:05)
[2025-02-18] MEDS: HYDROMORPHONE 1 MG INJ IV ×2 (14:05→18:20)
[2025-02-18 14:42] LABS: Appearance Urine UA CLEAR; Bilirubin Urine UA NEGATIVE (NEGATIVE); Color Urine UA YELLOW; Glucose Urine UA NEGATIVE (Negative); Ketones Urine UA NEGATIVE (NEGATIVE); Leukocyte Esterase Urine UA 2+ (NEGATIVE); Nitrite Urine UA NEGATIVE (Negative); Occult Blood Urine UA NEGATIVE (Negative); Protein Urine UA NEGATIVE (Negative); Specific Gravity Urine UA 1.010 (1.000-1.035); Urobilinogen Urine UA 0.2 E.U./dL (0.2); pH Urine UA 8.0 (4.5-8.0)
[2025-02-18 14:48] LABS: Culture Indicated Urine Specimen Cultured
--- NOTE | 2025-02-18 15:17 | DI.MRI.S_ITS ---
PROCEDURE: MR ABDOMEN WO/W CON INDICATIONS: mass at pancreatic tail TECHNIQUE: Coronal HASTE, axial 2D FLASH in- and [id number]; axial breath-hold T2 FSE with fat saturation from the hepatic dome to the iliac crests. Oblique coronal thin- slice and radial thick slab HASTE through the biliary system. Dynamic axial VIBE during administration of contrast. Post-contrast coronal VIBE or 2D FLASH with fat saturation from the hepatic dome to the iliac crests. Optional diffusion weighted imaging and ADC may be performed. COMPARISON: [facility], CT, CT ABDOMEN PELVIS W CON, 02/18/2025, 14:05. FINDINGS: Image quality: Diagnostic. Gallbladder: Status post cholecystectomy Biliary ducts: Prominent CBD measuring 1.6 cm. No filling defect or stricture seen. There is also mild to moderate intrahepatic biliary dilatation. Pancreas: Suboptimally assessed on some of the sequences due to motion artifact. There is significant diffuse volume loss. No generalized dilatation of the main pancreatic duct. There is a v-shaped fluid containing structure in the region of the tail most distally measuring 8 x 8 millimeter. No definite abnormal internal enhancement. No diffusion restriction. There is also a 6 millimeter seminal fluid containing structure in the head medially.. OTHER: Lung bases: Unremarkable. Liver: No solid mass. Extensive signal drop on the out of phase images. Several cysts measuring up to 1.2 cm in the dome of the right lobe. Spleen: Size is within normal limits. Adrenal Glands: No adrenal nodules. Kidneys and Ureters: No hydronephrosis. No solid mass. No complex renal cystic lesion which requires follow up. Stomach and Bowel: Normal colonic caliber, without significant wall thickening. Peritoneum: No abnormal intraperitoneal fluid. No free air. Ventral Wall: No hernia. Abdominal Nodes: No retroperitoneal or mesenteric adenopathy by size criteria. Vessels: Aorta and inferior vena cava are normal in size. Bones: No aggressive osseous abnormality. IMPRESSION: 1. Small fluid containing structure in the region of the tail, may represent focal dilatation of the main pancreatic duct in the context of volume loss or a small IPMN. 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 No suspicious focal lesion seen otherwise. 2. CBD dilatation post cholecystectomy, no calculi or stricture seen. 3. Significant fatty infiltration of the liver. Dictated by: Jaron Gilbert M.D. on 02/18/2025 at 19:05 Approved by: Jaron Gilbert M.D. on 02/18/2025 at 19:20
[2025-02-18] MEDS: METOPROLOL TARTRATE 5 MG/5 ML INJ IV (16:28)
== END 2025-02-18 19:53 | disposition home or self-care (01) ==
PROVIDERS: Emergency Provider Family Medicine; PCP Family Medicine
DX: R10.13 Epigastric pain (principal); R11.2 Nausea with vomiting, unspecified; K86.89 Other specified diseases of pancreas
CPT/HCPCS: 36415; 74177; 74183; 80053; 81001; 83690; 85025; 87077; 87086; 87186; 93005; 96374; 96375; 96376; 99284; A9579; J1171; J2405; Q9967

== ENCOUNTER 2025-02-19 12:47 | Emergency (ER) | payer MEDICARE, OTHER, SELFPAY ==
[2024-08-01 10:27] VITALS: BMI 30.6
[2025-02-19] VITALS (24 sets, daily range): BP systolic 151–221; BP diastolic 67–86; PULSE 59–76; RESP 16–26; TEMP 37.1; O2SAT 94–97; BMI 28.5
--- NOTE | 2025-02-19 13:03 | DI.RAD.S_ITS ---
PROCEDURE: XR CHEST 1V INDICATIONS: Chest Pain TECHNIQUE: One view of the chest was acquired. COMPARISON: [facility], , XR CHEST 1V, 03/27/2021, 18:11. FINDINGS: Cardiopericardial silhouette within normal limits for portable AP view. Pulmonary vasculature is normal. Mildly prominent epicardial fat pad. Degenerative changes of the thoracic spine and shoulders. No pneumothorax, no pleural effusion, no lobar consolidation. IMPRESSION: Negative. If symptoms persist or worsen, or there is high clinical suspicion of thoracic abnormality, CT chest could be performed. Dictated by: Sukhi Reyes M.D. on 02/19/2025 at 13:41 Approved by: Sukhi Reyes M.D. on 02/19/2025 at 13:47
--- NOTE | 2025-02-19 13:06 | EKG_ITS ---
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
[2025-02-19 13:28] LABS: Add Manual Diff / Slide Review NO; Hematocrit 35.6 % (36-46); Hemoglobin 12.3 g/dL (12.0-16.0); Lymphocytes Absolute Auto 5800 /uL (1100-4500); Mean Corpuscular HGB Conc 34.4 % (30-36); Mean Corpuscular Hemoglobin 29.8 PG (26-34); Mean Corpuscular Volume 86.5 fL (80-100); Platelet Count 246 X10^3/uL (150-400)
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
[2025-02-19 13:37] LABS: INR 1.0 (0.9-1.3); Prothrombin Time 11.8 SECONDS (9.4-12.5)
[2025-02-19 13:40] LABS: PTT Partial Thromboplastin Tim 26 SECONDS (25.1-36.5)
[2025-02-19 13:41] LABS: Alanine Aminotransferase 32 IU/L (<35); Albumin 4.3 g/dL (3.5-5.0); Albumin Globulin Ratio 1.7 (1.0-2.8); Alkaline Phosphatase 47 U/L (38-126); Blood Urea Nitrogen 13 mg/dL (7-17); Calcium 9.3 mg/dL (8.4-10.2); Carbon Dioxide 24 mmol/L (22-32); Chloride 106 mmol/L (98-107); Creatine Kinase 57 U/L (30-135); Estimated Glomerular Filt Rate > 60 mL/min (>60); Globulin 2.6 g/dL (1.7-4.1); Glucose 124 mg/dL (70-99); HEMOLYSIS < 15 (0-50); Lipase 358 U/L (23-300); Magnesium 1.4 mg/dL (1.6-2.3); Potassium 3.7 mmol/L (3.4-5.1); Sodium 137 mmol/L (137-145); Total Protein 6.9 g/dL (6.3-8.2)
--- NOTE | 2025-02-19 13:42 | DI.CT.S_ITS ---
PROCEDURE: CT HEAD/BRAIN WO CON INDICATIONS: headache TECHNIQUE: Noncontrast 4.5 mm thick angled axial sections acquired from the foramen magnum to the vertex, with coronal and sagittal reformats. For radiation dose reduction, the following was used: automated exposure control, adjustment of mA and/or kV according to patient size. COMPARISON: [facility], CT, CT HEAD/BRAIN WO CON, 07/31/2024, 0:49. FINDINGS: Image quality: Diagnostic. CSF spaces: Basal cisterns are patent. No extra-axial fluid collections. The ventricles are symmetric in size and shape. Brain: No intracranial bleeds or mass effect. There is cerebral volume loss, with resultant ventricular and sulcal prominence. There are periventricular and deep white matter chronic small vessel ischemic changes. Skull and face: Calvarium and visualized facial bones appear intact, without suspicious lesions. Sinuses: Visualized sinuses and mastoids are clear. IMPRESSION: No acute intracranial pathology. Dictated by: Laith Hoffmann M.D. on 02/19/2025 at 14:30 Approved by: Laith Hoffmann M.D. on 02/19/2025 at 14:31
[2025-02-19 13:53] LABS: NT-proBNP (BNP-Adult 18+) 195 pg/mL (<450); Troponin I < 0.012 ng/mL (0.01-0.034)
[2025-02-19] MEDS: HYDROMORPHONE 1 MG INJ IV (15:25)
[2025-02-19] MEDS: MAGNESIUM SULFATE 2 GM/50 ML PIGGYBACK IV (15:29)
[2025-02-19] MEDS: METOPROLOL TARTRATE 5 MG/5 ML INJ IV (17:12)
== END 2025-02-19 18:13 | disposition home or self-care (01) ==
PROVIDERS: Emergency Provider Family Medicine; PCP Family Medicine
DX: K86.89 Other specified diseases of pancreas (principal); M54.81 Occipital neuralgia
CPT/HCPCS: 36415; 70450; 71045; 80053; 82550; 83690; 83735; 83880; 84484; 85025; 85610; 85730; 93005; 96365; 96375; 99284; J0696; J1171; J3475

== ENCOUNTER 2025-03-05 20:19 | Emergency (ER) | payer MEDICARE, OTHER, SELFPAY ==
[2024-08-01 10:27] VITALS: BMI 30.6
[2025-03-05 20:39] VITALS: BP 191/87; PULSE 92; RESP 18; TEMP 36.3; O2SAT 97; BMI 28.3
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
--- NOTE | 2025-03-05 23:09 | DI.CT.S_ITS ---
PROCEDURE: CT ABDOMEN PELVIS W CON INDICATIONS: LMQ/LLQ pain and tend TECHNIQUE: After the administration of intravenous contrast, axial sections acquired from the lung bases to the pubic symphysis. Coronal and sagittal reformats were performed. For radiation dose reduction, the following was used: automated exposure control, adjustment of mA and/or kV according to patient size. COMPARISON: [facility], CT, CT ABDOMEN PELVIS W CON, 02/18/2025, 14:05. FINDINGS: Image quality: Diagnostic. Lower Chest: Lung bases are clear. Coronary artery calcifications. ABDOMEN: Liver: No solid mass. Simple appearing cysts and subcentimeter hypodensities which are too small to accurately characterize. Hepatic steatosis. Gallbladder: Surgically absent. Biliary ducts: Redemonstration of common bile duct dilatation which is stable compared to prior. Pancreas: Please refer to same day MRI. Spleen: Size is within normal limits. Adrenal Glands: No adrenal nodules. Kidneys and Ureters: No hydronephrosis. No solid mass. No complex renal cystic lesion which requires follow up. Nonobstructing left renal calcification versus vascular calcification. Stomach and Bowel: Normal colonic caliber, without significant wall thickening. Diverticulosis without evidence of acute diverticulitis. Peritoneum: No abnormal intraperitoneal fluid. No free air. Ventral Wall: No significant ventral hernia. Abdominal Nodes: No retroperitoneal or mesenteric adenopathy by size criteria. Vessels: Aorta and inferior vena cava are normal in size. Atherosclerotic vascular calcifications. PELVIS: Pelvic Organs: Possible Bartholin gland cyst on the left measuring 10 mm (2/172).. Bladder: Contrast filling the urinary bladder. Pelvic Nodes: No enlarged lymph nodes. Miscellaneous: No inguinal hernias are seen. Bones: No aggressive osseous abnormality. Degenerative changes of the spine. Decreased osseous mineralization. Mild dextrocurvature. IMPRESSION: 1. No acute findings within the abdomen or pelvis. 2. Please refer to recent MRI with regards to pancreas findings and follow-up recommendations. 3. Please see above for additional incidental findings. Dictated by: Gilbert Dill M.D. on 03/06/2025 at 0:33 Approved by: Gilbert Dill M.D. on 03/06/2025 at 0:39
[2025-03-05 23:38] VITALS: PULSE 74; O2SAT 97
[2025-03-05 23:40] VITALS: BP 204/89; PULSE 74; RESP 19; O2SAT 97
[2025-03-05] MEDS: ONDANSETRON 4 MG/2 ML INJ IV (23:44)
[2025-03-05 23:50] LABS: Add Manual Diff / Slide Review NO; Hematocrit 38.7 % (36-46); Hemoglobin 12.9 g/dL (12.0-16.0); Lymphocytes Absolute Auto 4100 /uL (1100-4500); Mean Corpuscular HGB Conc 33.4 % (30-36); Mean Corpuscular Hemoglobin 29.2 PG (26-34); Mean Corpuscular Volume 87.3 fL (80-100); Platelet Count 228 X10^3/uL (150-400)
[2025-03-05 23:59] LABS: Alanine Aminotransferase 30 IU/L (<35); Albumin 4.1 g/dL (3.5-5.0); Albumin Globulin Ratio 1.5 (1.0-2.8); Alkaline Phosphatase 51 U/L (38-126); Blood Urea Nitrogen 18 mg/dL (7-17); Calcium 9.5 mg/dL (8.4-10.2); Carbon Dioxide 27 mmol/L (22-32); Chloride 106 mmol/L (98-107); Estimated Glomerular Filt Rate 41 mL/min (>60); Globulin 2.8 g/dL (1.7-4.1); Glucose 146 mg/dL (70-99); HEMOLYSIS < 15 (0-50); Lipase 24 U/L (23-300); Potassium 3.9 mmol/L (3.4-5.1); Sodium 140 mmol/L (137-145); Total Protein 6.9 g/dL (6.3-8.2)
[2025-03-06] VITALS: BP 180/83; PULSE 73; RESP 17; O2SAT 95
[2025-03-06 00:30] VITALS: PULSE 69; RESP 20; O2SAT 97
[2025-03-06 00:36] VITALS: BP 192/83; PULSE 70; RESP 17; O2SAT 94
[2025-03-06 01:00] VITALS: PULSE 66; RESP 20; O2SAT 94
[2025-03-06 01:01] VITALS: BP 172/72; PULSE 67; RESP 13; O2SAT 94
[2025-03-06 01:30] VITALS: BP 174/75; PULSE 67; RESP 15; O2SAT 93
== END 2025-03-06 02:04 | disposition home or self-care (01) ==
PROVIDERS: Emergency Provider Emergency Medicine; PCP Family Medicine
DX: R10.32 Left lower quadrant pain (principal); K86.9 Disease of pancreas, unspecified
CPT/HCPCS: 36415; 74177; 74183; 80053; 83690; 85025; 96374; 96375; 99284; A9579; J1171; J2405; Q9967

== ENCOUNTER → 2025-03-13 10:37 | Outpatient (CLI) | payer MEDICARE, OTHER, SELFPAY ==
[2024-08-01 10:27] VITALS: BMI 30.6
[2025-03-13 15:17] LABS: Carcinoembryonic Antigen 1.0 ng/mL (0.1-3.0)
[2025-03-14 07:10] LABS: Cancer (Carbohydrate) Ag 19-9 36 U/mL (0-35)
== END ==
PROVIDERS: PCP Family Medicine; Referring Provider Internal Medicine Hematology & Oncology; Visit Provider Internal Medicine Hematology & Oncology
DX: C25.1 Malignant neoplasm of body of pancreas (principal); D37.8 Neoplasm of uncertain behavior of other specified digestive organs
CPT/HCPCS: 36415; 82378; 86301

== ENCOUNTER 2025-03-13 11:30 | Emergency (ER) | payer MEDICARE, OTHER, SELFPAY ==
[2024-08-01 10:27] VITALS: BMI 30.6
[2025-03-13] VITALS (12 sets, daily range): BP systolic 139–171; BP diastolic 60–72; PULSE 64–79; RESP 15–24; TEMP 36.6; O2SAT 92–98; BMI 26.6
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
--- NOTE | 2025-03-13 11:35 | EKG_ITS ---
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
--- NOTE | 2025-03-13 11:47 | DI.CT.S_ITS ---
PROCEDURE: CT HEAD/BRAIN WO CON INDICATIONS: syncope TECHNIQUE: Noncontrast 4.5 mm thick angled axial sections acquired from the foramen magnum to the vertex, with coronal and sagittal reformats. For radiation dose reduction, the following was used: automated exposure control, adjustment of mA and/or kV according to patient size. COMPARISON: [facility], CT, CT HEAD/BRAIN WO CON, 02/19/2025, 14:06. FINDINGS: Image quality: Diagnostic. CSF spaces: Basal cisterns are patent. No extra-axial fluid collections. The ventricles are symmetric in size and shape. Brain: No intracranial bleeds or mass effect. There is cerebral volume loss, with resultant ventricular and sulcal prominence. There are periventricular and deep white matter chronic small vessel ischemic changes. There is intracranial internal carotid artery atherosclerosis. Skull and face: Calvarium and visualized facial bones appear intact, without suspicious lesions. Sinuses: Visualized sinuses and mastoids are clear. IMPRESSION: No acute intracranial pathology. Dictated by: Jadon Rodriguez M.D. on 03/13/2025 at 12:23 Approved by: Jadon Rodriguez M.D. on 03/13/2025 at 12:24
--- NOTE | 2025-03-13 11:47 | DI.CT.S_ITS ---
PROCEDURE: CT ANGIO HEAD AND NECK INDICATIONS: syncope TECHNIQUE: After the administration of intravenous contrast, 1 mm thick sections acquired from the aortic arch through the [place] of [place]. 3-dimensional rldjdhc-kaqrpyhfs-lncfbuvbxh (MIP) and/or volume rendering reformats were acquired of the central intracranial vasculature and neck separately. For radiation dose reduction, the following was used: automated exposure control, adjustment of mA and/or kV according to patient size. COMPARISON: None. FINDINGS: Image quality: Diagnostic. Cerebral CT Angiogram: Internal carotid arteries: No acute findings. Intracranial ICA are patent with no significant stenosis. No occlusion. No aneurysm. Anterior cerebral arteries: Unremarkable. No significant stenosis. No occlusion. No aneurysm. Middle cerebral arteries: Unremarkable. No significant stenosis. No occlusion. No aneurysm. Posterior cerebral arteries: Unremarkable. No significant stenosis. No occlusion. No aneurysm. Basilar artery: Unremarkable. No significant stenosis. No occlusion. No aneurysm. Vertebral arteries: Unremarkable as visualized. Dural venous sinuses: Unremarkable given phase of enhancement. Other: Arterial phase appearance of the brain parenchyma is unremarkable. Neck CT Angiogram: Internal carotid arteries: Unremarkable. No significant stenosis. No dissection or occlusion. Common carotid arteries: Unremarkable. No significant stenosis. No dissection or occlusion. External carotid arteries: Unremarkable. No occlusion. Vertebral arteries: Unremarkable. No significant stenosis. No dissection or occlusion. Aortic Arch and Mediastinum: Partially visualized aortic arch unremarkable without evidence of aneurysm. Origins of the great vessels unremarkable. Other: Arterial phase soft tissues of the neck and chest are unremarkable. IMPRESSION: 1. No significant intracranial arterial abnormality is seen. 2. No significant abnormality is seen within the arteries of the neck. Any quantitative measurements of stenosis were performed using NASCET criteria. Dictated by: Jadon Rodriguez M.D. on 03/13/2025 at 12:43 Approved by: Jadon Rodriguez M.D. on 03/13/2025 at 12:44
[2025-03-13 11:51] LABS: Add Manual Diff / Slide Review NO; Hematocrit 38.0 % (36-46); Hemoglobin 12.8 g/dL (12.0-16.0); Lymphocytes Absolute Auto 6300 /uL (1100-4500); Mean Corpuscular HGB Conc 33.6 % (30-36); Mean Corpuscular Hemoglobin 29.3 PG (26-34); Mean Corpuscular Volume 87.2 fL (80-100); Platelet Count 266 X10^3/uL (150-400)
[2025-03-13 11:57] LABS: INR 1.0 (0.9-1.3); Prothrombin Time 11.6 SECONDS (9.4-12.5)
[2025-03-13 12:00] LABS: PTT Partial Thromboplastin Tim 25 SECONDS (25.1-36.5)
[2025-03-13 12:02] LABS: Alanine Aminotransferase 24 IU/L (<35); Albumin 4.2 g/dL (3.5-5.0); Albumin Globulin Ratio 1.6 (1.0-2.8); Alkaline Phosphatase 53 U/L (38-126); Blood Urea Nitrogen 21 mg/dL (7-17); Calcium 10.1 mg/dL (8.4-10.2); Carbon Dioxide 24 mmol/L (22-32); Chloride 104 mmol/L (98-107); Creatine Kinase 30 U/L (30-135); Estimated Glomerular Filt Rate 37 mL/min (>60); Globulin 2.6 g/dL (1.7-4.1); Glucose 210 mg/dL (70-99); HEMOLYSIS < 15 (0-50); Lipase 43 U/L (23-300); Magnesium 1.8 mg/dL (1.6-2.3); Potassium 3.7 mmol/L (3.4-5.1); Sodium 138 mmol/L (137-145); Total Protein 6.8 g/dL (6.3-8.2)
[2025-03-13 12:14] LABS: NT-proBNP (BNP-Adult 18+) 204 pg/mL (<450); Troponin I < 0.012 ng/mL (0.01-0.034)
[2025-03-13] MEDS: LACTATED RINGERS 1,000 ML 1000 ML IV (12:17)
== END 2025-03-13 15:38 | disposition home or self-care (01) ==
PROVIDERS: Emergency Provider Family Medicine; PCP Family Medicine
DX: R55 Syncope and collapse (principal)
CPT/HCPCS: 36415; 70450; 70496; 70498; 71045; 80053; 82378; 82550; 83690; 83735; 83880; 84484; 85025; 85610; 85730; 86301; 93005; 96360; 96361; 99284; Q9967

== ENCOUNTER 2025-04-08 12:54 | Emergency (ER) | payer MEDICARE, OTHER, SELFPAY ==
[2024-08-01 10:27] VITALS: BMI 30.6
[2025-04-08] VITALS (10 sets, daily range): BP systolic 186–187; BP diastolic 79–83; PULSE 61–83; RESP 16–24; TEMP 36.7; O2SAT 93–97
--- NOTE | 2025-04-08 13:10 | DI.CT.S_ITS ---
PROCEDURE: CT ABDOMEN PELVIS W CON INDICATIONS: distention post EGD TECHNIQUE: After the administration of intravenous contrast, axial sections acquired from the lung bases to the pubic symphysis. Coronal and sagittal reformats were performed. For radiation dose reduction, the following was used: automated exposure control, adjustment of mA and/or kV according to patient size. COMPARISON: [facility], MR, MR AB PANCREATIC/MRCP PROTOCOL, 03/05/2025, 17:24. [facility], CT, CT ABDOMEN PELVIS W CON, 03/06/2025, 0:18. FINDINGS: Image quality: Diagnostic. Lower Chest: No significant findings. ABDOMEN: Liver: No solid mass. Diffuse fatty liver infiltration is noted. Nonenhancing liver cysts are seen. Gallbladder: Removed. Biliary ducts: The common bile duct measures 12 mm. No intrahepatic biliary ductal dilatation is seen. Pancreas: No ductal dilation. The pancreas is atrophic, without a focal abnormality seen. Spleen: Size is within normal limits. Adrenal Glands: No adrenal nodules. Kidneys and Ureters: No hydronephrosis. No solid mass. No complex renal cystic lesion which requires follow up. Stomach and Bowel: Normal colonic caliber, without significant wall thickening. No dilated loops of small bowel are seen. Peritoneum: No peritoneal abscess can be seen. No abnormal intraperitoneal fluid. No free air. Ventral Wall: No significant ventral hernia. A presumed right lower quadrant anterior abdominal wall medication injection site can be seen. Abdominal Nodes: No retroperitoneal or mesenteric adenopathy by size criteria. Vessels: Aorta and inferior vena cava are normal in size. PELVIS: Pelvic Organs: No adnexal masses are seen on either side. Bladder: No bladder wall thickening, accounting for underdistention. Pelvic Nodes: No enlarged lymph nodes. Miscellaneous: No inguinal hernias are seen. Bones: No aggressive osseous abnormality. Mild dextroconvex scoliotic curvature is seen. Age-appropriate bony degenerative changes are seen. IMPRESSION: No imaging explanation is found for this patient's presenting symptoms. No post CT complication is seen. No findings of perforation or abscess can be seen. Additional findings: Fatty liver infiltration Nonenhancing liver cysts Cholecystectomy Stable dilatation of the common bile duct. Dictated by: Cheko Andrade M.D. on 04/08/2025 at 13:11 Approved by: Cheko Andrade M.D. on 04/08/2025 at 13:16
--- NOTE | 2025-04-08 13:25 | EKG_ITS ---
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
[2025-04-08 13:26] LABS: Add Manual Diff / Slide Review NO; Hematocrit 35.4 % (36-46); Hemoglobin 12.1 g/dL (12.0-16.0); Lymphocytes Absolute Auto 4900 /uL (1100-4500); Mean Corpuscular HGB Conc 34.2 % (30-36); Mean Corpuscular Hemoglobin 29.8 PG (26-34); Mean Corpuscular Volume 87.3 fL (80-100); Platelet Count 221 X10^3/uL (150-400)
[2025-04-08 13:33] LABS: INR 1.1 (0.9-1.3); Prothrombin Time 11.9 SECONDS (9.4-12.5)
[2025-04-08 13:36] LABS: Lactate (Lactic Acid) 0.8 mmol/L (0.7-2.1)
[2025-04-08 13:37] LABS: Alanine Aminotransferase 29 IU/L (<35); Albumin 3.8 g/dL (3.5-5.0); Albumin Globulin Ratio 1.5 (1.0-2.8); Alkaline Phosphatase 46 U/L (38-126); Blood Urea Nitrogen 11 mg/dL (7-17); Calcium 9.1 mg/dL (8.4-10.2); Carbon Dioxide 29 mmol/L (22-32); Chloride 107 mmol/L (98-107); Estimated Glomerular Filt Rate > 60 mL/min (>60); Globulin 2.5 g/dL (1.7-4.1); Glucose 166 mg/dL (70-99); HEMOLYSIS < 15 (0-50); Lipase 17 U/L (23-300); Potassium 3.3 mmol/L (3.4-5.1); Sodium 141 mmol/L (137-145); Total Protein 6.3 g/dL (6.3-8.2)
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
== END 2025-04-08 16:20 | disposition home or self-care (01) ==
PROVIDERS: Emergency Provider Emergency Medicine; PCP Family Medicine
DX: R10.9 Unspecified abdominal pain (principal); K86.9 Disease of pancreas, unspecified
CPT/HCPCS: 36415; 74177; 80053; 81003; 83605; 83690; 85025; 85610; 86850; 86900; 86901; 93005; 99283; 99284; Q9967

== ENCOUNTER 2025-04-16 20:15 | Emergency (ER) | payer MEDICARE, OTHER, SELFPAY ==
[2024-08-01 10:27] VITALS: BMI 30.6
[2025-04-16] VITALS (11 sets, daily range): BP systolic 129–228; BP diastolic 70–88; PULSE 64–84; RESP 16–31; TEMP 36.6–36.8; O2SAT 97–98; BMI 23.6
--- NOTE | 2025-04-16 20:28 | EKG_ITS ---
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
--- NOTE | 2025-04-16 20:47 | EKG_ITS ---
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
[2025-04-16 20:55] LABS: Add Manual Diff / Slide Review NO; Hematocrit 37.8 % (36-46); Hemoglobin 12.9 g/dL (12.0-16.0); Lymphocytes Absolute Auto 4500 /uL (1100-4500); Mean Corpuscular HGB Conc 34.2 % (30-36); Mean Corpuscular Hemoglobin 29.5 PG (26-34); Mean Corpuscular Volume 86.3 fL (80-100); Platelet Count 271 X10^3/uL (150-400)
[2025-04-16 21:08] LABS: Alanine Aminotransferase 47 IU/L (<35); Albumin 4.4 g/dL (3.5-5.0); Albumin Globulin Ratio 1.4 (1.0-2.8); Alkaline Phosphatase 49 U/L (38-126); Blood Urea Nitrogen 15 mg/dL (7-17); Calcium 9.9 mg/dL (8.4-10.2); Carbon Dioxide 26 mmol/L (22-32); Chloride 107 mmol/L (98-107); Estimated Glomerular Filt Rate > 60 mL/min (>60); Globulin 3.2 g/dL (1.7-4.1); Glucose 138 mg/dL (70-99); HEMOLYSIS < 15 (0-50); Lipase 23 U/L (23-300); Potassium 3.1 mmol/L (3.4-5.1); Sodium 142 mmol/L (137-145); Total Protein 7.6 g/dL (6.3-8.2)
--- NOTE | 2025-04-16 21:18 | DI.CT.S_ITS ---
PROCEDURE: CT ABDOMEN PELVIS W CON INDICATIONS: diffuse abd pain, distension TECHNIQUE: After the administration of intravenous contrast, axial sections acquired from the lung bases to the pubic symphysis. Coronal and sagittal reformats were performed. For radiation dose reduction, the following was used: automated exposure control, adjustment of mA and/or kV according to patient size. COMPARISON: [facility], CT, CT ABDOMEN PELVIS W CON, 04/08/2025, 13:36. FINDINGS: Image quality: Diagnostic. Lower Chest: Bilateral lung bases are clear. Heart size is enlarged with small amount of pericardial effusion measures up to 7 mm in thickness adjacent to left ventricle. ABDOMEN: Liver: No solid mass. Well-circumscribed hypodensities are again seen in liver parenchyma consistent with hepatic cysts. Moderate hepatic steatosis. Gallbladder: Gallbladder is surgically absent. Biliary ducts: No intrahepatic biliary ductal dilatation. Common bile duct measures up to 1.6 cm in diameter approximately and 1.2 cm in diameter more distally, unchanged from prior study series 3, image 50. No gross choledocholithiasis. Pancreas: No ductal dilation. Spleen: Size is within normal limits. Adrenal Glands: No adrenal nodules. Kidneys and Ureters: No hydronephrosis. No solid mass. No complex renal cystic lesion which requires follow up. Stomach and Bowel: There is distal gastric wall thickening with narrowing of the lumen at the gastric pylorus. No small bowel or colon wall thickening. No abscess collection. Sigmoid diverticulosis without CT evidence of acute diverticulitis. Peritoneum: No abnormal intraperitoneal fluid. No free air. Ventral Wall: No significant ventral hernia. Abdominal Nodes: No retroperitoneal or mesenteric adenopathy by size criteria. Vessels: Aorta and inferior vena cava are normal in size. PELVIS: Pelvic Organs: Surgically absent. Bladder: No bladder wall thickening, accounting for underdistention. Pelvic Nodes: No enlarged lymph nodes. Miscellaneous: No inguinal hernias are seen. Bones: No aggressive osseous abnormality. IMPRESSION: 1. Suggestion of distal gastric wall thickening with narrowing of the gastric pylorus. Finding is concerning for infectious or inflammatory gastritis. No small bowel or colon wall thickening. No abscess collection. No free fluid or free air. 2. Other chronic findings are not significantly changed from previous study. Dictated by: Jadon Rodriguez M.D. on 04/16/2025 at 22:10 Approved by: Jadon Rodriguez M.D. on 04/16/2025 at 22:14
[2025-04-16] MEDS: SODIUM CHLORIDE 0.9% 1,000 ML 1000 ML IV (21:22)
[2025-04-16] MEDS: ONDANSETRON 4 MG/2 ML INJ IV (21:22)
[2025-04-16 21:30] LABS: Lactate (Lactic Acid) 1.3 mmol/L (0.7-2.1); Magnesium 1.4 mg/dL (1.6-2.3)
[2025-04-16] MEDS: SIMETHICONE 80 MG TABLET 160 MG PO (21:37)
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
--- NOTE | 2025-04-16 21:40 | PC.NURSE ---
Pt to CT
[2025-04-16 21:57] LABS: Culture Indicated Urine Specimen Cultured
[2025-04-16] MEDS: POTASSIUM CHLORIDE 20 MEQ/15 ML UDC 40 MEQ PO (22:09)
[2025-04-16] MEDS: MAGNESIUM SULFATE 2 GM/50 ML PIGGYBACK IV (22:09)
== END 2025-04-16 23:05 | disposition home or self-care (01) ==
PROVIDERS: Emergency Provider Student in an Organized Health Care Education/Training Program; PCP Family Medicine
DX: R10.9 Unspecified abdominal pain (principal); R11.2 Nausea with vomiting, unspecified
CPT/HCPCS: 74177; 80053; 81003; 81015; 83605; 83690; 83735; 85025; 87077; 87086; 87186; 93005; 93010; 99284; J2405; J3475; Q9967

== ENCOUNTER 2025-04-17 18:57 | Inpatient (IN) | payer MEDICARE, OTHER, SELFPAY ==
[2024-08-01 10:27] VITALS: BMI 30.6
[2025-04-17] VITALS (8 sets, daily range): BP systolic 203–211; BP diastolic 80–90; PULSE 74–93; RESP 18; TEMP 36.6; O2SAT 96–98; BMI 26.8
[2025-04-17 22:34] LABS: Add Manual Diff / Slide Review NO; Hematocrit 37.3 % (36-46); Hemoglobin 12.5 g/dL (12.0-16.0); Lymphocytes Absolute Auto 4600 /uL (1100-4500); Mean Corpuscular HGB Conc 33.6 % (30-36); Mean Corpuscular Hemoglobin 29.2 PG (26-34); Mean Corpuscular Volume 86.8 fL (80-100); Platelet Count 237 X10^3/uL (150-400)
[2025-04-17 22:41] LABS: Alanine Aminotransferase 37 IU/L (<35); Albumin 4.4 g/dL (3.5-5.0); Albumin Globulin Ratio 1.5 (1.0-2.8); Alkaline Phosphatase 52 U/L (38-126); Blood Urea Nitrogen 11 mg/dL (7-17); Calcium 9.4 mg/dL (8.4-10.2); Carbon Dioxide 24 mmol/L (22-32); Chloride 108 mmol/L (98-107); Estimated Glomerular Filt Rate > 60 mL/min (>60); Globulin 2.9 g/dL (1.7-4.1); Glucose 127 mg/dL (70-99); HEMOLYSIS 21 (0-50); Potassium 3.3 mmol/L (3.4-5.1); Sodium 142 mmol/L (137-145); Total Protein 7.3 g/dL (6.3-8.2)
--- NOTE | 2025-04-17 23:03 | DI.CT.S_ITS ---
PROCEDURE: CT ABDOMEN PELVIS W CON INDICATIONS: abd pain/ hx of recent GI BLEED DARK STOOL TECHNIQUE: After the administration of intravenous contrast, axial sections acquired from the lung bases to the pubic symphysis. Coronal and sagittal reformats were performed. For radiation dose reduction, the following was used: automated exposure control, adjustment of mA and/or kV according to patient size. COMPARISON: [facility], CT, CT ABDOMEN PELVIS W CON, 04/08/2025, 13:36. [facility], CT, CT ANGIO ABDOMEN PELVIS, 04/10/2025, 17:05. [facility], CT, CT ABDOMEN PELVIS W CON, 04/16/2025, 21:46. FINDINGS: Image quality: Diagnostic. Lower Chest: Bilateral lung bases are clear. Heart size is enlarged, no pericardial effusion. ABDOMEN: Liver: No solid mass. Moderate hepatic steatosis. Multiple hepatic cysts are unchanged from prior study. Gallbladder: Patient is status post cholecystectomy. Biliary ducts: No intrahepatic biliary ductal dilatation. Prominence of common bile duct remains unchanged from prior studies. No gross choledocholithiasis. Pancreas: No ductal dilation. Hypodensity in pancreatic tail region remains unchanged from prior studies. Spleen: Size is within normal limits. Adrenal Glands: No adrenal nodules. Kidneys and Ureters: Bilateral nonobstructing renal stones unchanged from prior studies. No hydronephrosis. No solid mass. No complex renal cystic lesion which requires follow up. Stomach and Bowel: There is no bowel obstruction. Again noted is distal gastric wall thickening and narrowing of the pyloric lumen concerning for gastritis. There is suggestion of mild diffuse colonic wall thickening on the current study with pericolonic fat stranding. No small bowel wall thickening. No abscess collection. Peritoneum: No abnormal intraperitoneal fluid. No free air. Ventral Wall: No significant ventral hernia. Abdominal Nodes: No retroperitoneal or mesenteric adenopathy by size criteria. Vessels: Aorta and inferior vena cava are normal in size. PELVIS: Pelvic Organs: Patient is status post hysterectomy. Bladder: There is bladder wall thickening, low-grade cystitis cannot be excluded. No calcified bladder stones or discrete bladder wall mass. Pelvic Nodes: No enlarged lymph nodes. Miscellaneous: No inguinal hernias are seen. Bones: No aggressive osseous abnormality. IMPRESSION: 1. Suggestion of diffuse colonic wall thickening concerning for colitis. No abscess collection. No free fluid or free air. 2. Persistent distal gastric wall thickening with narrowing of pyloric lumen concerning for gastritis. 3. Questionable diffuse bladder wall thickening concerning for cystitis suggest clinical correlation. No obstructing renal stones or hydronephrosis. Dictated by: Jadon Rodriguez M.D. on 04/17/2025 at 23:26 Approved by: Jadon Rodriguez M.D. on 04/17/2025 at 23:31
[2025-04-17 23:19] LABS: Lipase 23 U/L (23-300)
--- NOTE | 2025-04-17 23:37 | EKG_ITS ---
[address] [address] Test Date: 2025-04-17 Pat Name: Elena Rodriguez Department: [facility] Room: Gender: Female Beet Topper: VIVIANE : 1945 Requested By: Order Number: [id number] Reading MD: Jaron Rincon Measurements Intervals [place] Rate: 74 P: 10 CO: 146 QRS: -12 QRSD: 74 T: 9 QT: 434 QTc: 481 Interpretive Statements Normal sinus rhythm Electronically Signed On 04-18-2025 7:25:00 PDT by Jaron Rincon
[2025-04-17] MEDS: ONDANSETRON 4 MG/2 ML INJ IV (23:47)
[2025-04-17] MEDS: LACTATED RINGERS 1,000 ML 1000 ML IV (23:47)
[2025-04-18] VITALS (13 sets, daily range): BP systolic 147–221; BP diastolic 57–100; PULSE 66–91; RESP 17–42; TEMP 35.8–36.2; O2SAT 95–99; BMI 26.8
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
[2025-04-18] MEDS: FAMOTIDINE 20 MG/2 ML VIAL IV (01:05)
[2025-04-18 01:12] LABS: Appearance Urine UA SL CLOUDY; Bilirubin Urine UA NEGATIVE (NEGATIVE); Color Urine UA YELLOW; Glucose Urine UA NEGATIVE (Negative); Ketones Urine UA NEGATIVE (NEGATIVE); Leukocyte Esterase Urine UA 1+ (NEGATIVE); Nitrite Urine UA POSITIVE (Negative); Occult Blood Urine UA TRACE-INTACT (Negative); Protein Urine UA TRACE (Negative); Specific Gravity Urine UA 1.010 (1.000-1.035); Urobilinogen Urine UA 1.0 E.U./dL (0.2)
[2025-04-18 01:14] LABS: pH Urine UA 5.5 (4.5-8.0)
[2025-04-18 01:18] LABS: Culture Indicated Urine Specimen Cultured
[2025-04-18] MEDS: POTASSIUM CHLORIDE IN WATER 10 MEQ/100 ML PIGGYBACK 100 MEQ IV ×4 (02:09→05:54)
[2025-04-18] MEDS: METOCLOPRAMIDE 10 MG/2 ML INJ IV (03:18)
--- NOTE | 2025-04-18 03:42 | PC.NURSE ---
Pt sent up to admission to [facility] with 10meq of KCl running at 100ml/hr and the 3rd bag piggy backed to infuse after #2 is done.
[2025-04-18] MEDS: ONDANSETRON 4 MG ODT PO (03:55)
[2025-04-18] MEDS: SODIUM CHLORIDE 0.9% 1,000 ML 125 ML IV ×3 (04:25→20:59)
[2025-04-18] MEDS: MORPHINE 2 MG/ML INJ IV ×3 (05:08→20:46)
[2025-04-18] MEDS: ONDANSETRON 4 MG/2 ML INJ IV ×2 (07:53→20:46)
[2025-04-18] MEDS: PANTOPRAZOLE 40 MG VIAL IV (08:57)
[2025-04-18] MEDS: ENOXAPARIN 40 MG/0.4 ML SYRINGE SUBCUT (09:50)
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
[2025-04-18] MEDS: METOPROLOL ER 25 MG TABLET PO (10:27)
--- NOTE | 2025-04-18 12:00 | OT.IPNOTE ---
Pt refusing OT eval and due to being bloated and also feels does not need OT as has a very supportive . To touch base again with pt tomorrow.
--- NOTE | 2025-04-18 16:02 | PT-IP ANOTE ---
checked on pt earlier this afternoon and stated that she there was another person who checked on her from therapy and stated that she does not need PT. informed pt that the OT might be the one who checked on her but pt also got a PT eval order and informed pt regarding doctor's PT order. pt then stated that she does not want to do anything until she gets her migraine medication. pt stated that the nurse is checking her migraine medication at that time and agreed for PT to come back after she has taken her migraine meds. checked with nurse and stated that she will informed PT once she has given pt her migraine medication but was still waiting for doctor's order. Nurse informed after ~ 1 hour that pt already got her migraine medication. Checked on pt afterwards ~ 30 min. pt with spouse in room. PT just stepped in check on pt but pt was already agitated even before PT can say anything and was screaming at PT stated that she does not want to do anything and that the other therapist already told her that she does not need it. Stated that she knows what's going on and that she had enough of all of these. Informed pt that it is ok if she does not want to do PT and tried to calm the pt. Informed pt that PT can d/c PT eval order or if she wants PT to check back tomorrow just for clarification. pt continues to be agitated and not receptive and stated that she will take care of the doctor and for PT to do whatever I need to do. Left pt in room with spouse. Informed nurse regarding pt's refusal and agitation. will d/c PT eval order.
[2025-04-18] MEDS: ATORVASTATIN 20 MG TABLET 40 MG PO (20:47)
[2025-04-19] VITALS (8 sets, daily range): BP systolic 172–221; BP diastolic 61–88; PULSE 69–86; RESP 17; TEMP 36.1–36.2; O2SAT 98
[2025-04-19] MEDS: SODIUM CHLORIDE 0.9% 1,000 ML 125 ML IV (03:17)
[2025-04-19] MEDS: ENOXAPARIN 40 MG/0.4 ML SYRINGE SUBCUT (08:28)
[2025-04-19] MEDS: PANTOPRAZOLE 40 MG VIAL IV (08:29)
[2025-04-19] MEDS: SODIUM CHLORIDE 0.9% FLUSH 10 ML IV ×2 (08:29→15:04)
--- NOTE | 2025-04-19 08:43 | OT.IPNOTE ---
Pt states feeling much worse today and not wanting any OT eval and therefore to discharge OT eval orders. Per pt nurse is aware that she is nauseous and not feeling well.
[2025-04-19] MEDS: ASPIRIN EC 81 MG TABLET PO (08:54)
[2025-04-19] MEDS: METOPROLOL ER 25 MG TABLET PO (08:54)
[2025-04-19] MEDS: DOCUSATE 100 MG CAPSULE PO (08:54)
--- NOTE | 2025-04-19 08:57 | PC.NURSE ---
MD Parrish contacted related to patients blood pressure and diet order. New order for NPO except meds and ice chips received verbally. No other new orders.
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
[2025-04-19] MEDS: ONDANSETRON 4 MG/2 ML INJ IV (13:05)
[2025-04-19] MEDS: hydrALAZINE 20 MG/ML VIAL 10 MG IV (13:46)
[2025-04-19] MEDS: ELETRIPTAN 40 MG 40 EACH PO ×2 (13:51→20:32)
[2025-04-19] MEDS: MORPHINE 2 MG/ML INJ IV (15:03)
[2025-04-19] MEDS: ATORVASTATIN 20 MG TABLET 40 MG PO (20:31)
--- NOTE | 2025-04-19 21:27 | PC.NURSE ---
Addendum entered by Dean Granados RN 04/20/25 04:35: Patient used call light, this Rn answered and patient stated i need to go to the bathroom but i feel so sick im not sure i can make it. This RN pulled the commode to the bedside stating this will be better as its a shorter walking distance. Patient raised voice at RN stating I can't use that! You're not letting me use the bathroom. This RN informed patient that for safety if she doesn't feel like she can make it to the bathroom the commode or help from the HOP FARM WORKER and RN would be safest. The patient stated I have been walking to the bathroom safely the whole time. RN again informed patient of previous statement. Patient then turned over in bed and ignored this RN. This RN offered again to help patient to the bathroom with HOP FARM WORKER. Patient stated Nevermind, i will speak to my doctor about this. This RN left room with call light in reach and bed alarm on. Approximately 10 minutes later this RN and HOP FARM WORKER went into room to offer patient help to the bathroom and patient turned away from staff stating i just want to be left alone. Patient was left alone with call light in reach and bed alarm on. Coordinator RN made aware. Original Note: Patient verbalized frustration with this RN that she doesn't need someone in here 'watching me pee'. This RN informed patient that for safety shoes or grippy socks need to be worn, a small light on, and that measuring her urine for accurate input/output is standard of care as patient is on fluids. Patient raised voice at this RN saying what needs to happen is housekeeping needs to come in and sweep and mop this floor since they haven't been in here all day. Patient urinated and walked back to bed. this RN placed bed alarm on, call light is within reach. While patient got up to walk to bathroom patient did not unplug IV pole from wall and this RN stopped patient from doing so to unplug IV and prevent any complications.
[2025-04-20] MEDS: ONDANSETRON 4 MG/2 ML INJ IV ×3 (00:13→18:34)
[2025-04-20] MEDS: SODIUM CHLORIDE 0.9% 1,000 ML 100 ML IV ×3 (01:30→23:45)
[2025-04-20 08:34] VITALS: BP 213/81; PULSE 81; RESP 16; TEMP 36.3; O2SAT 100
[2025-04-20] MEDS: ASPIRIN EC 81 MG TABLET PO (08:41)
[2025-04-20] MEDS: METOPROLOL ER 25 MG TABLET PO (08:41)
[2025-04-20] MEDS: DOCUSATE 100 MG CAPSULE PO ×2 (08:43→20:42)
[2025-04-20] MEDS: ENOXAPARIN 40 MG/0.4 ML SYRINGE SUBCUT (08:43)
[2025-04-20] MEDS: PANTOPRAZOLE 40 MG VIAL IV (08:45)
[2025-04-20] MEDS: MORPHINE 2 MG/ML INJ IV ×2 (08:45→23:48)
--- NOTE | 2025-04-20 10:21 | CM.DPC ---
DCP Cont. Reviewed EMR and team rounds for pt's medical status and updates. Per Dr. Parrish's request, this IC DESIGN ENGINEER went to pt's room to ask if she would be interested in having a Home Health RN come out initially to help her with her diabetes. She adamantly declined, stating her was a nurse, and he takes care of her. Anticipate 1-more day before being ready for d/c. No further CM d/c needs are identified at this time.
[2025-04-20 10:38] VITALS: BP 193/74
--- NOTE | 2025-04-20 10:38 | DIET.CONS ---
Dietary Consultation Note Admission Date: 04/18/2025 02:33 Assessment: 79 y F admitted for UTI/colitis. Dietitian screened for low MNA score. Met with pt and spouse at bedside. Reports last 3 weeks unable to get any significant PO intake r/t abd pain. Before then, pt on GLP1 and reports steady weight loss r/t that, never over 2# per week and doing small freq meals protein based. Diet progressing slowly per provider and pt tolerance. Reports 3 bites of jello yesterday and 1 bite this morning. Pt on her side in bed, reporting still not feeling great, NFPE postponed. Has CGM and reports adequate BG control with target range within 70%. Currently BG was 103. Ht: 154.94 cm Wt: 64.41 kg BMI: 26.8 UBW: 76.657 kg on 07/30/24 (-16% weight loss within 1 year, non-severe), 68.039 kg on 03/05/25 (-5% within 6 wks, non-severe) Last BM: 04/19/25 (04/19/25 07:00) MNA: 9 Jordan Score: 17 Diet: 04/19/25 Lunch Clear Liquid Diet Diet Modifications: Nutrition Percent Meal Consumed 5% 04/19/25 18:46 Labs: RBC 4.29 X10^6/uL (4.0-5.2) 04/17/25 22:17 Hgb 12.5 g/dL (12.0-16.0) 04/17/25 22:17 Hct 37.3 % (36-46) 04/17/25 22:17 Creatinine 0.77 mg/dL (0.52-1.04) 04/17/25 22:17 Nutrition Diagnosis: Inadequate oral intakes r/t alterations in GI function/structure aeb pt reporting no significant PO intakes for 3 weeks, dx colitis Interventions: -Encouraged small freq protein based foods when diet advanced, protein supplements as needed -Carb consistent diet when advanced per provider Monitoring/Evaluations: days NPO/CLD Electronically Signed by: Lisa Campbell 04/20/25 10:38 Clinical Dietitian [address] [id number]
[2025-04-20 10:44] VITALS: BP 193/74
[2025-04-20] MEDS: hydrALAZINE 20 MG/ML VIAL 10 MG IV (10:44)
[2025-04-20 11:28] VITALS: BP 156/54
[2025-04-20] MEDS: SCOPOLAMINE 1 PATCH TOP (12:16)
[2025-04-20] MEDS: ELETRIPTAN 40 MG 40 EACH PO (13:18)
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
[2025-04-20 16:36] LABS: Add Manual Diff / Slide Review NO; Hematocrit 30.7 % (36-46); Hemoglobin 10.6 g/dL (12.0-16.0); Lymphocytes Absolute Auto 3800 /uL (1100-4500); Mean Corpuscular HGB Conc 34.6 % (30-36); Mean Corpuscular Hemoglobin 29.9 PG (26-34); Mean Corpuscular Volume 86.6 fL (80-100); Platelet Count 193 X10^3/uL (150-400)
[2025-04-20 16:47] LABS: Alanine Aminotransferase 29 IU/L (<35); Albumin 3.5 g/dL (3.5-5.0); Albumin Globulin Ratio 1.5 (1.0-2.8); Alkaline Phosphatase 47 U/L (38-126); Blood Urea Nitrogen 4 mg/dL (7-17); Calcium 8.5 mg/dL (8.4-10.2); Carbon Dioxide 21 mmol/L (22-32); Chloride 110 mmol/L (98-107); Estimated Glomerular Filt Rate > 60 mL/min (>60); Globulin 2.4 g/dL (1.7-4.1); Glucose 90 mg/dL (70-99); HEMOLYSIS < 15 (0-50); Potassium 3.2 mmol/L (3.4-5.1); Sodium 141 mmol/L (137-145); Total Protein 5.9 g/dL (6.3-8.2)
[2025-04-20] MEDS: POTASSIUM CHLORIDE 20 MEQ TAB 40 MEQ PO (17:56)
--- NOTE | 2025-04-20 18:14 | PC.NURSE ---
PT REMAINED A/OX4. ROOM AIR. NO C/O SOB OR S/S OF RESPI FAILURE. CONTINUED NAUSEA/ INTERMITTENT DRY HEAVING/ ABDOMINAL PAIN. DR PACE ROUNDED ON PATIENT IN AM. PLAN TO PUSH PO INTAKE AND CONTINUE IV FLUIDS. SCOPALAMINE PATCH PLACED. PT STATES RELIEF OF NAUSEA AND ABLE TO TOLERATE CRACKERS AROUND 1800. STAND-BY ASSIST TO RESTROOM. LABS DRAWN AND POTASSIUM REPLACED. PATIENT DEMONSTRATES IMPROVED MOOD THROUGHOUT SHIFT WITH ENGAGEMENT IN MORE CONVERSATION. BY TO VISIT. CARE ONGOING
[2025-04-20 19:00] VITALS: BP 176/52; PULSE 75; RESP 18; TEMP 36.3; O2SAT 96
[2025-04-20] MEDS: ATORVASTATIN 20 MG TABLET 40 MG PO (20:41)
[2025-04-21] MEDS: ONDANSETRON 4 MG/2 ML INJ IV ×3 (01:43→21:40)
[2025-04-21] MEDS: MORPHINE 2 MG/ML INJ IV ×3 (03:47→13:15)
--- NOTE | 2025-04-21 06:13 | PC.NURSE ---
Noc Shift Note- Called business excellence manager Dr. Nguyễn at 2345 regaurding Heparin Drip. Last PTT was elevated and held for 1 hour and decreased permprotocol. However patient has bright red blood in urine. New order received to D/C Heparin Drip. mHeparing drip stopped as ordered.
[2025-04-21 06:32] LABS: Add Manual Diff / Slide Review NO; Hematocrit 27.7 % (36-46); Hemoglobin 9.5 g/dL (12.0-16.0); Lymphocytes Absolute Auto 2900 /uL (1100-4500); Mean Corpuscular HGB Conc 34.3 % (30-36); Mean Corpuscular Hemoglobin 29.7 PG (26-34); Mean Corpuscular Volume 86.5 fL (80-100); Platelet Count 154 X10^3/uL (150-400)
[2025-04-21 06:50] LABS: Alanine Aminotransferase 25 IU/L (<35); Albumin 3.0 g/dL (3.5-5.0); Albumin Globulin Ratio 1.3 (1.0-2.8); Alkaline Phosphatase 39 U/L (38-126); Blood Urea Nitrogen 4 mg/dL (7-17); Calcium 8.1 mg/dL (8.4-10.2); Carbon Dioxide 21 mmol/L (22-32); Chloride 113 mmol/L (98-107); Estimated Glomerular Filt Rate > 60 mL/min (>60); Globulin 2.3 g/dL (1.7-4.1); Glucose 94 mg/dL (70-99); HEMOLYSIS < 15 (0-50); Potassium 3.4 mmol/L (3.4-5.1); Sodium 142 mmol/L (137-145); Total Protein 5.3 g/dL (6.3-8.2)
[2025-04-21 08:00] VITALS: BP 219/69; PULSE 77; RESP 20; TEMP 35.8; O2SAT 96
[2025-04-21] MEDS: hydrALAZINE 20 MG/ML VIAL 10 MG IV ×2 (08:00→20:32)
[2025-04-21] MEDS: ASPIRIN EC 81 MG TABLET PO (08:11)
[2025-04-21] MEDS: PANTOPRAZOLE 40 MG VIAL IV (08:11)
[2025-04-21] MEDS: ENOXAPARIN 40 MG/0.4 ML SYRINGE SUBCUT (08:11)
[2025-04-21] MEDS: METOPROLOL ER 25 MG TABLET PO (08:11)
[2025-04-21] MEDS: DOCUSATE 100 MG CAPSULE PO ×2 (08:11→20:18)
--- NOTE | 2025-04-21 09:24 | EKG_ITS ---
[facility] [address] [place] [address] Test Date: 2025-04-21 Pat Name: Elena Rodriguez Department: Room: 219 Gender: Female Paper Bundler: MARIAMA : 1945 Requested By: Order Number: [id number] Reading MD: Juan Rocha MD Measurements Intervals [place] Rate: 72 P: 15 CA: 142 QRS: -12 QRSD: 72 T: -16 QT: 370 QTc: 405 Interpretive Statements Normal sinus rhythm Nonspecific ST and T wave abnormality Electronically Signed On 04-22-2025 14:43:48 PDT by Juan Rocha MD
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
[2025-04-21 10:22] VITALS: BP 209/74
--- NOTE | 2025-04-21 11:12 | PT-IP ANOTE ---
PT eval order received. talked to pt and spouse and pt refused PT. spouse wants PT eval order d/c'd. pt stated that spouse assists her with mobility and does not want PT. nurse in room when PT checked on pt and aware of d/c PT eval order
[2025-04-21] MEDS: SODIUM CHLORIDE 0.9% 1,000 ML 100 ML IV ×2 (11:21→20:23)
[2025-04-21 12:08] LABS: Creatine Kinase 60 U/L (30-135)
[2025-04-21 12:20] LABS: Troponin I 0.039 ng/mL (0.01-0.034)
[2025-04-21 15:18] LABS: Troponin I 0.042 ng/mL (0.01-0.034)
--- NOTE | 2025-04-21 17:27 | PC.NURSE ---
Late entry: at 0930 pt's notified staff that pt was experiencing chest pain. This RN and Theresa Cuellar RN went to pt bedside to assess. Pt endorsed chest pain. RN asked where on the chest the pain was, and if it was radiating anywhere else. Pt said, Why don't you ask my , he's the one who called you? Then said You're not listening. I've answered this already. I told you I have chest pain. My chest hurts. RN explained the need for additional information so that the provider could be notified. Pt continued to express that staff was not listening to her, and she became uncooperative with her assessment. Dr. Smith notified via telephone. STAT EKG, Troponin I, and D-Dimer ordered. Dr. Smith said he will come to pt bedside when he can. Both RNs went back to pt bedside to let her know that the provider was aware and that someone would be drawing some labs. Pt raised her voice to staff and said she was tired of everyone poking me because everyone misses!. RN attempted to explain to pt the importance of the lab draws, but pt repeatedly spoke over RNs and said that people keep coming in here and telling me what to do, but they never ask me! Lab came to bedside and made one attempt to draw blood but was unsuccessful, at which point pt refused any additional attempts. Dr. Smith notified that pt was refusing lab draws, arrived at bedside around 1020. 17:50 pt's was in hallway and told this RN, she's not gonna make it through the night. When asked for clarification, he said, she's gonna . She's not eating or drinking anything at which point he walked away from the RN. RN went to pt bedside, where pt was lying with eyes closed, with normal and even respirations, and she awoke to voice. RN asked pt if she was going to have any of her dinner, to which she said, I don't feel like it. I'm too tired. RN expressed concern that pt has not had much intake today aside from the IV fluids, and pt repeated that she was tired. RN asked pt if she could sit up in bed and just have a few sips of juice, or a bite of jello, and pt refused and said, can't you just let me sleep?. RN left pt room and called Dr. Smith and notified him of pt's status including last glucose. hr payroll coordinator aware as well. Care ongoing.
--- NOTE | 2025-04-21 19:52 | PC.NURSE ---
Late entry: At approximately 0920 pt's comes down the hallway upset asking where PAMELA Drake is and this RN stated that PAMELA Drake is with another pt is there something that I can help you with. The pt's states: My is having chest pain and Noelle needs to be doing her job. I directed the back to the pt's room to put on the call light and informed him that I would get PAMELA Drake and that I was on my way to help as well. This RN called PAMELA Drake via [employer] and asked for her to come to the pt's room. Once this RN and PAMELA Drake where both in the room, the this RN started to ask the pt questions to gather more information about the pt's chest pain. This RN asked:Where is your chest pain? Does the pain radiate to your back or shoulder? Any nausea or vomiting? The pt becomes verbally agitated and states: I already told you this, I HAVE CHEST PAIN. This RN then attempted to ascertain if this is new chest pain or not and will the pt stated: I didn't press the call brooks, my , you just better ask him. This RN then called for a stat EKG from RT, labs were reviewed along with orders, while PAMELA Drake continued to assess the pt. When RT arrived to perform the EKG, both RNs left room due to the pt refusing to cooperate at which point Dr. Smith was contacted and new orders were recieved for troponins and D-dimer at approximately 0937. Dr. Smith was informed that the pt was refusing to provide detail about her chest pain. PAMELA Drake informed Dr. Smith of the pt's currently present, nondescriptive, acute chest pain and no clearer information could be gather from the pt at that time. Dr. Smith stated I will come in when I can. The pt was then informed about the lab orders and that an increase in pain medication was requested and denied and that Dr. Smith, the covering provider, would be in as soon as possible. The pt continued to get more upset with staff and belligerent with staff stating: I've been poked and prodded all over. You're treating me so unfairly. NO ONE IS LISTENING TO ME. NO ONE DID ANYTHING FOR MY CHEST PAIN LAST NIGHT! Both RNs allowed the pt to express her frustration and informed the pt of the current plan of action. This RN also told the pt that she was free to leave the hospital via AMA at any time and the pt started yelling: You know that if I leave that I have to pay for that bill! This RN informed the pt: I'm do not deal with insurance and the cost of the hospital stay that is outside my scope of practice and that is a question for the financial people. The pt started verbally acting staff again saying that staff is doing nothing to help her and once again both RNs informed the pt of the plan to do blood work, that the doctor would be in shortly, and that she was allowed to refuse any treatments which could lead to a delay in care and that she was allowed to also leave at any time at which point the pt finally stated: I think I just need alone time. Both RNs were in the pt's room until 0950. Lab attempted to draw blood at 0956 and the pt refused to have labs redrawn after the lab was unable to collect all the blood needed for the ordered labs.
[2025-04-21] MEDS: ATORVASTATIN 20 MG TABLET 40 MG PO (20:17)
[2025-04-21 20:30] VITALS: BP 191/62; PULSE 65; RESP 18; TEMP 36.6; O2SAT 95
[2025-04-21 20:32] VITALS: BP 189/48; PULSE 61
[2025-04-21 21:05] VITALS: BP 138/38; PULSE 66
[2025-04-21] MEDS: PROCHLORPERAZINE 10 MG/2 ML VIAL 5 MG IV (21:49)
[2025-04-22] MEDS: ELETRIPTAN 40 MG 40 EACH PO (03:05)
[2025-04-22 06:24] LABS: Add Manual Diff / Slide Review NO; Hematocrit 29.1 % (36-46); Hemoglobin 9.8 g/dL (12.0-16.0); Lymphocytes Absolute Auto 2900 /uL (1100-4500); Mean Corpuscular HGB Conc 33.8 % (30-36); Mean Corpuscular Hemoglobin 29.5 PG (26-34); Mean Corpuscular Volume 87.5 fL (80-100); Platelet Count 157 X10^3/uL (150-400)
[2025-04-22] MEDS: ONDANSETRON 4 MG/2 ML INJ IV (06:26)
[2025-04-22 06:35] LABS: Alanine Aminotransferase 24 IU/L (<35); Albumin 3.1 g/dL (3.5-5.0); Albumin Globulin Ratio 1.3 (1.0-2.8); Alkaline Phosphatase 45 U/L (38-126); Blood Urea Nitrogen 4 mg/dL (7-17); Calcium 8.2 mg/dL (8.4-10.2); Carbon Dioxide 20 mmol/L (22-32); Chloride 112 mmol/L (98-107); Estimated Glomerular Filt Rate > 60 mL/min (>60); Globulin 2.3 g/dL (1.7-4.1); Glucose 134 mg/dL (70-99); HEMOLYSIS < 15 (0-50); Potassium 3.2 mmol/L (3.4-5.1); Sodium 141 mmol/L (137-145); Total Protein 5.4 g/dL (6.3-8.2)
[2025-04-22 07:00] VITALS: BP 184/54; PULSE 72; RESP 20; TEMP 35.8; O2SAT 99
[2025-04-22] MEDS: ENOXAPARIN 40 MG/0.4 ML SYRINGE SUBCUT (09:09)
[2025-04-22] MEDS: ASPIRIN EC 81 MG TABLET PO (09:09)
[2025-04-22] MEDS: DOCUSATE 100 MG CAPSULE PO (09:09)
[2025-04-22] MEDS: METOPROLOL ER 25 MG TABLET PO (09:10)
[2025-04-22] MEDS: PANTOPRAZOLE 40 MG VIAL IV (09:10)
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
[2025-04-22] MEDS: SODIUM CHLORIDE 0.9% 1,000 ML 100 ML IV (09:16)
[2025-04-22 13:30] VITALS: BP 158/48
[2025-04-22] MEDS: POTASSIUM CHLORIDE IN WATER 10 MEQ/100 ML PIGGYBACK 100 MEQ IV ×3 (15:33→18:06)
[2025-04-22] MEDS: INSULIN LISPRO 100 UNIT/ML 3ML VIAL SUBCUT (17:12)
[2025-04-22 19:00] VITALS: BP 190/67; PULSE 72; RESP 20; TEMP 36.1; O2SAT 90
[2025-04-22] MEDS: POTASSIUM CHLORIDE IN WATER 10 MEQ/100 ML PIGGYBACK 50 MEQ IV (19:41)
[2025-04-22] MEDS: ATORVASTATIN 20 MG TABLET 40 MG PO (20:25)
[2025-04-22 23:18] VITALS: BP 183/67; PULSE 81
[2025-04-22] MEDS: hydrALAZINE 20 MG/ML VIAL 10 MG IV (23:18)
[2025-04-22] MEDS: DEXTROSE 5%-0.45% NS 1,000 ML 50 ML IV (23:20)
[2025-04-23] VITALS (7 sets, daily range): BP systolic 176–199; BP diastolic 52–71; PULSE 62–78; RESP 15–19; TEMP 35.8–36.4; O2SAT 95–98
[2025-04-23] MEDS: ACETAMINOPHEN 325 MG TABLET 650 MG PO (04:23)
[2025-04-23 06:22] LABS: Add Manual Diff / Slide Review NO; Hematocrit 26.5 % (36-46); Hemoglobin 9.2 g/dL (12.0-16.0); Lymphocytes Absolute Auto 2700 /uL (1100-4500); Mean Corpuscular HGB Conc 34.7 % (30-36); Mean Corpuscular Hemoglobin 29.8 PG (26-34); Mean Corpuscular Volume 86.0 fL (80-100); Platelet Count 158 X10^3/uL (150-400)
[2025-04-23 06:37] LABS: Alanine Aminotransferase 22 IU/L (<35); Albumin 2.9 g/dL (3.5-5.0); Albumin Globulin Ratio 1.3 (1.0-2.8); Alkaline Phosphatase 42 U/L (38-126); Blood Urea Nitrogen 3 mg/dL (7-17); Calcium 8.3 mg/dL (8.4-10.2); Carbon Dioxide 21 mmol/L (22-32); Chloride 113 mmol/L (98-107); Estimated Glomerular Filt Rate > 60 mL/min (>60); Globulin 2.3 g/dL (1.7-4.1); Glucose 104 mg/dL (70-99); HEMOLYSIS 17 (0-50); Sodium 140 mmol/L (137-145); Total Protein 5.2 g/dL (6.3-8.2)
[2025-04-23 06:42] LABS: Potassium 2.5 mmol/L (3.4-5.1)
[2025-04-23] MEDS: SODIUM CHLORIDE 0.9% 1,000 ML 75 ML IV (07:44)
[2025-04-23] MEDS: POTASSIUM CHLORIDE IN WATER 10 MEQ/100 ML PIGGYBACK 100 MEQ IV ×4 (07:51→13:21)
[2025-04-23] MEDS: DOCUSATE 100 MG CAPSULE PO (10:34)
[2025-04-23] MEDS: ENOXAPARIN 40 MG/0.4 ML SYRINGE SUBCUT (10:35)
[2025-04-23] MEDS: ASPIRIN EC 81 MG TABLET PO (10:35)
[2025-04-23] MEDS: PANTOPRAZOLE 40 MG VIAL IV (10:35)
[2025-04-23] MEDS: METOPROLOL ER 25 MG TABLET PO (10:44)
--- NOTE | 2025-04-23 15:40 | CM.DPC ---
DCP Discharge Home Per MD, pt had IV potassium today and plan is likely stable for discharge after dinner this evening. Pt has AMY CGs and family support and has declined the need for HH. No further SW needs at this time. OSBALDO Lara
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
[2025-04-23 17:48] LABS: HEMOLYSIS < 15 (0-50); Magnesium 1.1 mg/dL (1.6-2.3); Potassium 2.9 mmol/L (3.4-5.1)
[2025-04-23] MEDS: MAGNESIUM CHLORIDE 64 MG TABLET 128 MG PO (18:15)
[2025-04-23] MEDS: POTASSIUM CHLORIDE 20 MEQ TAB 40 MEQ PO (18:15)
--- NOTE | 2025-04-23 19:20 | PC.NURSE ---
Patient seen by Dr. Parrish and is very eager to leave today. Patient ambulatory with her home walker and her , denies complaint. Tolerating meals, states she had mashed potatoes, gravy and a little meatloaf without difficulty. K and MAg resulted low this evening and Dr. Parrish notified. Patient given po doses of K and mag as ordered prior to discharge. Patient's states he has magnesium supplement and potassium supplement OTC that he discussed with Dr. Parrish and will give to his tomorrow as he was directed. Patient will call Dr. Parrish's office to schedule follow up labs and appt for Wednesday. IV dc'd intact, and patient escorted out via wc to home with her .
== END 2025-04-23 18:35 | disposition home or self-care (01) | DRG 690 ==
LOC: ED 22:59 → AC 04-18 02:49
PROVIDERS: Emergency Medicine; Family Medicine; Pharmacist Pharmacist Clinician (PhC)/ Clinical Pharmacy Specialist; Admitting Provider Family Medicine; Emergency Provider Family Medicine; PCP Family Medicine; Referring Provider Family Medicine; Visit Provider Family Medicine
DX: N39.0 Urinary tract infection, site not specified (principal); E11.9 Type 2 diabetes mellitus without complications; K52.9 Noninfective gastroenteritis and colitis, unspecified; I10 Essential (primary) hypertension; G43.909 Migraine, unspecified, not intractable, without status migrainosus; R11.0 Nausea; R79.89 Other specified abnormal findings of blood chemistry; E87.6 Hypokalemia; E83.42 Hypomagnesemia; R07.9 Chest pain, unspecified; E78.5 Hyperlipidemia, unspecified; M79.7 Fibromyalgia; I25.2 Old myocardial infarction; Z86.73 Personal history of transient ischemic attack (TIA), and cerebral infarction without residual deficits; Z79.4 Long term (current) use of insulin; Z86.69 Personal history of other diseases of the nervous system and sense organs; Z79.85 Long-term (current) use of injectable non-insulin antidiabetic drugs; Z85.6 Personal history of leukemia; R10.9 Unspecified abdominal pain; R11.2 Nausea with vomiting, unspecified
CPT/HCPCS: 36415; 74177; 80053; 81001; 81003; 81015; 82550; 82962; 83605; 83690; 83735; 84132; 84484; 85025; 85379; 87077; 87086; 87186; 93005; 93010; 96361; 96365; 96367; 96375; 99232; 99284; J0360; J0696; J0780; J1650; J1815; J2060; J2270; J2405; J2470; J2765; J3475; Q9967

== ENCOUNTER 2025-05-01 09:20 | Emergency (ER) | payer MEDICARE, OTHER, SELFPAY ==
[2025-04-18 04:15] VITALS: BMI 26.8
[2025-05-01] VITALS (86 sets, daily range): BP systolic 75–269; BP diastolic 38–157; PULSE 70–133; RESP 14–29; TEMP 36.6; O2SAT 86–100; BMI 26.8
--- NOTE | 2025-05-01 09:25 | ED.SEIZURE ---
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 Documented By: RA Lorazepam (Lorazepam 2 Mg/Ml Inj) 1 mg IV NOW ONE Stop: 05/01/25 16:21 Last Admin: 05/01/25 16:27 Dose: 1 mg Documented By: RA Propofol (Propofol 200 Mg/20 Ml Vial) 90 mg IV NOW ONE Stop: 05/01/25 17:34 Last Admin: 05/01/25 17:09 Dose: 90 mg Documented By: RA Propofol (Propofol 200 Mg/20 Ml Vial) 60 mg IV NOW ONE Stop: 05/01/25 17:36 Last Admin: 05/01/25 17:32 Dose: 60 mg Documented By: RA Succinylcholine Chloride (Succinylcholine 200 Mg/10 Ml Vial) 80 mg IV NOW ONE Stop: 05/01/25 17:35 Last Admin: 05/01/25 17:12 Dose: 80 mg Documented By: RA Vital Signs Vital signs: Vital Signs - 8 hr 05/01/25 14:25 05/01/25 14:25 05/01/25 14:30 Pulse Rate 90 92 H Respiratory Rate 14 Blood Pressure 227/88 H Pulse Oximetry 97 97 05/01/25 14:30 05/01/25 14:38 05/01/25 15:00 Pulse Rate 71 92 H Respiratory Rate 20 Blood Pressure 200/81 H 200/81 H Pulse Oximetry 97 05/01/25 15:01 05/01/25 15:01 05/01/25 15:08 Pulse Rate 91 H Respiratory Rate Blood Pressure 203/81 H 194/81 H Pulse Oximetry 98 05/01/25 15:08 05/01/25 15:10 05/01/25 15:10 Pulse Rate 90 94 H Respiratory Rate 18 Blood Pressure 188/77 H Pulse Oximetry 97 98 05/01/25 15:15 05/01/25 15:15 05/01/25 15:20 Pulse Rate 97 H Respiratory Rate 21 Blood Pressure 178/74 H 171/69 H Pulse Oximetry 97 05/01/25 15:20 05/01/25 15:25 05/01/25 15:25 Pulse Rate 99 H 97 H Respiratory Rate 22 Blood Pressure 168/71 H Pulse Oximetry 98 98 05/01/25 15:30 05/01/25 15:30 05/01/25 15:37 Pulse Rate 98 H Respiratory Rate Blood Pressure 171/71 H 163/70 H Pulse Oximetry 96 05/01/25 15:37 05/01/25 15:40 05/01/25 15:40 Pulse Rate 97 H 100 H Respiratory Rate 26 H Blood Pressure 171/68 H Pulse Oximetry 98 97 05/01/25 15:46 05/01/25 15:46 05/01/25 15:50 Pulse Rate 104 H Respiratory Rate 25 H Blood Pressure 192/77 H 171/75 H Pulse Oximetry 96 05/01/25 15:50 05/01/25 15:55 05/01/25 15:55 Pulse Rate 102 H 102 H Respiratory Rate Blood Pressure 160/70 H Pulse Oximetry 97 96 05/01/25 16:00 05/01/25 16:00 05/01/25 16:05 Pulse Rate 104 H Respiratory Rate Blood Pressure 164/68 H 167/75 H Pulse Oximetry 97 05/01/25 16:05 05/01/25 16:10 05/01/25 16:10 Pulse Rate 104 H 115 H Respiratory Rate Blood Pressure 109/55 L Pulse Oximetry 96 95 05/01/25 16:12 05/01/25 16:12 05/01/25 16:16 Pulse Rate 112 H Respiratory Rate 28 H Blood Pressure 179/72 H 185/80 H Pulse Oximetry 94 05/01/25 16:16 05/01/25 16:20 05/01/25 16:20 Pulse Rate 113 H 119 H Respiratory Rate Blood Pressure 163/72 H Pulse Oximetry 95 95 05/01/25 16:26 05/01/25 16:26 05/01/25 16:30 Pulse Rate 130 H 118 H Respiratory Rate Blood Pressure 181/155 H Pulse Oximetry 95 95 05/01/25 16:31 05/01/25 16:31 05/01/25 16:35 Pulse Rate 118 H Respiratory Rate 27 H Blood Pressure 176/73 H 169/72 H Pulse Oximetry 94 05/01/25 16:35 05/01/25 16:40 05/01/25 16:40 Pulse Rate 119 H Respiratory Rate Blood Pressure 164/70 H 164/70 H Pulse Oximetry 95 05/01/25 16:40 05/01/25 16:45 05/01/25 16:45 Pulse Rate 133 H 122 H Respiratory Rate Blood Pressure 75/38 L Pulse Oximetry 86 L 96 05/01/25 16:46 05/01/25 16:46 05/01/25 16:46 Pulse Rate 128 H Respiratory Rate 26 H Blood Pressure 75/38 L 75/38 L Pulse Oximetry 91 05/01/25 16:47 05/01/25 16:47 05/01/25 16:51 Pulse Rate 119 H 120 H Respiratory Rate Blood Pressure 163/67 H Pulse Oximetry 94 96 05/01/25 16:51 05/01/25 16:55 05/01/25 16:55 Pulse Rate 121 H Respiratory Rate Blood Pressure 164/70 H 163/70 H Pulse Oximetry 94 05/01/25 17:00 05/01/25 17:00 05/01/25 17:05 Pulse Rate 120 H Respiratory Rate 27 H Blood Pressure 144/63 H 143/62 H Pulse Oximetry 94 05/01/25 17:05 05/01/25 17:11 05/01/25 17:11 Pulse Rate 120 H 111 H Respiratory Rate Blood Pressure 139/67 Pulse Oximetry 96 98 05/01/25 17:15 05/01/25 17:15 05/01/25 17:20 Pulse Rate 113 H Respiratory Rate 24 Blood Pressure 163/70 H 183/77 H Pulse Oximetry 99 05/01/25 17:20 05/01/25 17:25 05/01/25 17:25 Pulse Rate 115 H 112 H Respiratory Rate 25 H 26 H Blood Pressure 161/72 H Pulse Oximetry 99 98 05/01/25 17:30 05/01/25 17:30 05/01/25 17:35 Pulse Rate 114 H Respiratory Rate 28 H Blood Pressure 157/72 H 146/63 H Pulse Oximetry 98 05/01/25 17:35 05/01/25 17:40 05/01/25 17:40 Pulse Rate 107 H 108 H Respiratory Rate 22 24 Blood Pressure 153/67 H Pulse Oximetry 98 98 05/01/25 17:45 05/01/25 17:45 05/01/25 17:50 Pulse Rate 109 H Respiratory Rate 25 H Blood Pressure 153/67 H 157/70 H Pulse Oximetry 99 05/01/25 17:50 05/01/25 17:55 05/01/25 17:55 Pulse Rate 109 H 113 H Respiratory Rate 27 H Blood Pressure 175/75 H Pulse Oximetry 97 98 05/01/25 18:00 05/01/25 18:00 05/01/25 18:05 Pulse Rate 112 H Respiratory Rate 23 Blood Pressure 173/75 H 164/72 H Pulse Oximetry 98 05/01/25 18:05 05/01/25 18:10 05/01/25 18:10 Pulse Rate 113 H 113 H Respiratory Rate 24 25 H Blood Pressure 181/78 H Pulse Oximetry 98 97 05/01/25 18:15 05/01/25 18:15 05/01/25 18:20 Pulse Rate 114 H Respiratory Rate 23 Blood Pressure 180/75 H 149/64 H Pulse Oximetry 98 05/01/25 18:20 05/01/25 18:25 05/01/25 18:25 Pulse Rate 117 H 117 H Respiratory Rate 29 H Blood Pressure 188/79 H Pulse Oximetry 98 99 05/01/25 18:30 05/01/25 18:30 05/01/25 18:35 Pulse Rate 114 H Respiratory Rate Blood Pressure 174/72 H 171/77 H Pulse Oximetry 99 05/01/25 18:35 05/01/25 18:41 05/01/25 18:41 Pulse Rate 112 H 112 H Respiratory Rate 22 Blood Pressure 205/80 H Pulse Oximetry 99 99 05/01/25 18:45 05/01/25 18:45 05/01/25 18:50 Pulse Rate 110 H 112 H Respiratory Rate Blood Pressure 194/77 H Pulse Oximetry 99 98 05/01/25 18:50 05/01/25 18:56 05/01/25 18:56 Pulse Rate 118 H Respiratory Rate Blood Pressure 200/79 H 176/72 H Pulse Oximetry 99 05/01/25 19:00 05/01/25 19:00 05/01/25 19:05 Pulse Rate 121 H Respiratory Rate 25 H Blood Pressure 186/75 H 177/73 H Pulse Oximetry 99 05/01/25 19:05 05/01/25 19:10 05/01/25 19:10 Pulse Rate 110 H 107 H Respiratory Rate 24 24 Blood Pressure 156/69 H Pulse Oximetry 100 100 [facility] - Seizure <Ivan Velasquez MD - Last Filed: 05/23/25 07:13> Lab Data 05/01/25 09:46 05/01/25 14:35 Labs: Lab Results 05/01/25 05/01/25 05/01/25 Range/Units 09:46 10:13 10:13 WBC 15.5 H (4.5-11.0) X10^3/uL RBC 4.08 (4.0-5.2) X10^6/uL Hgb 11.8 L (12.0-16.0) g/dL Hct 35.3 L (36-46) % MCV 86.5 (80-100) fL MCH 29.0 (26-34) PG MCHC 33.5 (30-36) % RDW 14.4 (11.6-14.8) % Plt Count 256 (150-400) X10^3/uL Neut % (Auto) 63.0 (50-75) % Lymph % (Auto) 34.0 (25-40) % [place] % (Auto) 2.7 L (3-14) % Eos % (Auto) 0.2 L (2-4) % Baso % (Auto) 0.1 (0-2) % Neut # (Auto) 9800 H (0813-6046) /uL Lymph # (Auto) 5300 H (8292-7623) /uL [place] # (Auto) 400 (0-900) /uL Eos # (Auto) 0 (0-450) /uL Baso # (Auto) 0 (0-100) /uL PT 11.7 (9.4-12.5) SECONDS INR 1.0 (0.9-1.3) APTT 18 L (25.1-36.5) SECONDS Sodium 141 (137-145) mmol/L Potassium 2.7 L* (3.4-5.1) mmol/L Chloride 105 (98-107) mmol/L Carbon Dioxide 17 L (22-32) mmol/L BUN 8 (7-17) mg/dL Creatinine 0.66 (0.52-1.04) mg/dL Estimated GFR > 60 (>60) mL/min BUN/Creatinine Ratio 12.1 (6-22) Glucose 213 H D (70-99) mg/dL Lactate 7.3 H* (0.7-2.1) mmol/L Calcium 8.5 (8.4-10.2) mg/dL Total Bilirubin 0.9 (0.2-1.3) mg/dL AST 86 H (14-36) IU/L ALT 59 H (<35) IU/L Alkaline Phosphatase 79 (38-126) U/L Total Creatine Kinase 109 (30-135) U/L Troponin I 0.355 H* (0.01-0.034) ng/mL Total Protein 6.6 (6.3-8.2) g/dL Albumin 4.0 (3.5-5.0) g/dL Globulin 2.6 (1.7-4.1) g/dL Albumin/Globulin Ratio 1.5 (1.0-2.8) Procalcitonin (<0.5) ng/mL Urine Color Yellow Urine Appearance Clear Urine pH 6.0 Normal (4.5-8.0) Ur Specific [place] 1.020 (1.000-1.035) Urine Protein 3+ H (Negative) Urine Glucose (UA) Trace H (Negative) g/dL Urine Ketones 1+ H (NEGATIVE) Urine Occult Blood 2+ H (Negative) Urine Nitrate Negative (Negative) Urine Bilirubin Negative (NEGATIVE) Urine Urobilinogen 0.2 (0.2) E.U./dL Ur Leukocyte Esterase Negative (NEGATIVE) Urine RBC 0-1/hpf (0-5/HPF) Urine WBC None seen (0-5/HPF) Ur Squamous Epith Cells None seen (0-5/HPF) Amorphous Sediment 1+ Urine Bacteria None seen (None) Hyaline Casts 0-1/lpf (None) Ur Culture Indicated? Cult not indicated Vol Urine Centrifuged 10ml (spun) U Opiates 300ng/mL cut Negative (Negative) Ur Oxycodone Screen Negative (Negative) Urine Methadone Screen Negative (Negative) Ur Barbiturates Screen Negative (Negative) U Tricyclic Antidepress Negative (Negative) Ur Phencyclidine Scrn Negative (Negative) Ur Amphetamines Screen Negative (Negative) U Methamphetamines Scrn Negative (Negative) Ur MDMA Scrn (Ecstasy) Negative (Negative) U Benzodiazepines Scrn Negative (Negative) Urine Cocaine Screen Negative (Negative) U Marijuana (THC) Screen Negative (Negative) Urine Specific [place] Normal (Normal) Ethyl Alcohol < 10 (<10) mg/dL Ur Creatinine Normal (Normal) 05/01/25 05/01/25 Range/Units 11:50 14:35 WBC (4.5-11.0) X10^3/uL RBC (4.0-5.2) X10^6/uL Hgb (12.0-16.0) g/dL Hct (36-46) % MCV (80-100) fL MCH (26-34) PG MCHC (30-36) % RDW (11.6-14.8) % Plt Count (150-400) X10^3/uL Neut % (Auto) (50-75) % Lymph % (Auto) (25-40) % [place] % (Auto) (3-14) % Eos % (Auto) (2-4) % Baso % (Auto) (0-2) % Neut # (Auto) (3955-0198) /uL Lymph # (Auto) (1630-4152) /uL [place] # (Auto) (0-900) /uL Eos # (Auto) (0-450) /uL Baso # (Auto) (0-100) /uL PT (9.4-12.5) SECONDS INR (0.9-1.3) APTT (25.1-36.5) SECONDS Sodium 138 (137-145) mmol/L Potassium 2.8 L (3.4-5.1) mmol/L Chloride 106 (98-107) mmol/L Carbon Dioxide 17 L (22-32) mmol/L BUN 6 L (7-17) mg/dL Creatinine 0.56 (0.52-1.04) mg/dL Estimated GFR > 60 (>60) mL/min BUN/Creatinine Ratio 10.7 (6-22) Glucose 174 H (70-99) mg/dL Lactate 4.6 H* 6.6 H* (0.7-2.1) mmol/L Calcium 7.9 L (8.4-10.2) mg/dL Total Bilirubin (0.2-1.3) mg/dL AST (14-36) IU/L ALT (<35) IU/L Alkaline Phosphatase (38-126) U/L Total Creatine Kinase (30-135) U/L Troponin I 0.842 H* (0.01-0.034) ng/mL Total Protein (6.3-8.2) g/dL Albumin (3.5-5.0) g/dL Globulin (1.7-4.1) g/dL Albumin/Globulin Ratio (1.0-2.8) Procalcitonin 0.047 (<0.5) ng/mL Urine Color Urine Appearance Urine pH (4.5-8.0) Ur Specific [place] (1.000-1.035) Urine Protein (Negative) Urine Glucose (UA) (Negative) g/dL Urine Ketones (NEGATIVE) Urine Occult Blood (Negative) Urine Nitrate (Negative) Urine Bilirubin (NEGATIVE) Urine Urobilinogen (0.2) E.U./dL Ur Leukocyte Esterase (NEGATIVE) Urine RBC (0-5/HPF) Urine WBC (0-5/HPF) Ur Squamous Epith Cells (0-5/HPF) Amorphous Sediment Urine Bacteria (None) Hyaline Casts (None) Ur Culture Indicated? Vol Urine Centrifuged U Opiates 300ng/mL cut (Negative) Ur Oxycodone Screen (Negative) Urine Methadone Screen (Negative) Ur Barbiturates Screen (Negative) U Tricyclic Antidepress (Negative) Ur Phencyclidine Scrn (Negative) Ur Amphetamines Screen (Negative) U Methamphetamines Scrn (Negative) Ur MDMA Scrn (Ecstasy) (Negative) U Benzodiazepines Scrn (Negative) Urine Cocaine Screen (Negative) U Marijuana (THC) Screen (Negative) Urine Specific [place] (Normal) Ethyl Alcohol (<10) mg/dL Ur Creatinine (Normal) Imaging Data CT scan - head: Radiologist's Impression: [address] [address] [address] Scan Report Signed Patient: Elena Rodriguez MR#: [id number] : 1945 Acct:[id number] Age/Sex: 80 / F Date of Service: 05/01/25 Loc: ED Accession Number: [id number] Procedure: CT head/brain wo con Ordering Provider: Ivan Velasquez MD PROCEDURE: CT HEAD/BRAIN WO CON INDICATIONS: Fall/injury TECHNIQUE: Noncontrast 4.5 mm thick angled axial sections acquired from the foramen magnum to the vertex, with coronal and sagittal reformats. For radiation dose reduction, the following was used: automated exposure control, adjustment of mA and/or kV according to patient size. COMPARISON: [facility], CT, CT HEAD/BRAIN WO CON, 03/13/2025, 12:09. FINDINGS: CSF spaces: Basal cisterns are patent. No extra-axial fluid collections. Ventricles are normal in size and shape. Brain: No midline shift. No intracranial mass effect or hemorrhage. [place]-white matter interface is normal. Skull and face: Calvarium and visualized facial bones are intact, without suspicious lesions. Sinuses: Visualized sinuses and mastoids are clear. IMPRESSION: Atrophy and chronic ischemic change without acute hemorrhage or mass Approved by: Daniel Mcclendon M.D. on 05/01/2025 at 10:06 CTA - brain/neck: Radiologist's Impression: [address] [address] [address] Scan Report Signed with Addenda Patient: Elena Rodriguez MR#: [id number] : 1945 Acct:[id number] Age/Sex: 80 / F Date of Service: 05/01/25 Loc: ED Accession Number: [id number] Procedure: CT angio head and neck Ordering Provider: Ivan Velasquez MD ADDENDUM This report includes an Addendum and supersedes previous reports for this exam. PROCEDURE: CT ANGIO HEAD AND NECK INDICATIONS: Altered mental status TECHNIQUE: After the administration of intravenous contrast, 1 mm thick sections acquired from the aortic arch through the [place] of [place]. 3-dimensional rcultzv-joghljmoz-faengtgvco (MIP) and/or volume rendering reformats were acquired of the central intracranial vasculature and neck separately. For radiation dose reduction, the following was used: automated exposure control, adjustment of mA and/or kV according to patient size. COMPARISON: [facility], CT, CT ANGIO HEAD AND NECK, 03/13/2025, 12:09. FINDINGS: Image quality: Diagnostic. Cerebral CT Angiogram: Internal carotid arteries: Calcified atherosclerotic plaque involving the cavernous segments of both ICA results in 50% stenosis on left Anterior cerebral arteries: Unremarkable. No significant stenosis. No occlusion. No aneurysm. Middle cerebral arteries: Unremarkable. No significant stenosis. No occlusion. No aneurysm. Posterior cerebral arteries: Unremarkable. No significant stenosis. No occlusion. No aneurysm. Basilar artery: Unremarkable. No significant stenosis. No occlusion. No aneurysm. Vertebral arteries: Unremarkable as visualized. Dural venous sinuses: Unremarkable given phase of enhancement. Other: Arterial phase appearance of the brain parenchyma is unremarkable. Neck CT Angiogram: Internal carotid arteries: Atherosclerotic plaque without significant stenosis utilizing NASCET criteria Common carotid arteries: Unremarkable. No significant stenosis. No dissection or occlusion. External carotid arteries: Unremarkable. No occlusion. Vertebral arteries: Unremarkable. No significant stenosis. No dissection or occlusion. 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 The right vertebral artery arises from the base of the right common carotid artery. Other: Arterial phase soft tissues of the neck and chest are unremarkable. Left thyroid nodule 2.2 cm IMPRESSION: Atherosclerotic calcification results in 50% left cavernous ICA stenosis without occlusion. Otherwise, no intracranial large vessel occlusion, aneurysm or vascular malformation. Atherosclerotic plaque in both proximal ICA present without stenosis utilizing NASCET criteria. Approved by: Daniel Mcclendon M.D. on 05/01/2025 at 10:14 ADDENDUM: The study was further reviewed at the request of the provider. Multilevel degenerative disc disease and arthropathy present throughout the cervical spine. No evidence of displaced fracture or traumatic malalignment. No significant central canal stenosis. Dictated by: Daniel Mcclendon M.D. on 05/01/2025 at 10:44 Approved by: Daniel Mcclendon M.D. on 05/01/2025 at 10:46 Addendum Dictated By: Daniel Mcclendon MD Addendum Signed By: 05/01/251145 Addendum Cosigned By: DD/ TD/TT: 05/01/25 PROCEDURE: CT ANGIO HEAD AND NECK INDICATIONS: Altered mental status TECHNIQUE: After the administration of intravenous contrast, 1 mm thick sections acquired from the aortic arch through the [place] of [place]. 3-dimensional fpasnoe-fafwmlagc-bpucxbowvf (MIP) and/or volume rendering reformats were acquired of the central intracranial vasculature and neck separately. For radiation dose reduction, the following was used: automated exposure control, adjustment of mA and/or kV according to patient size. COMPARISON: [facility], CT, CT ANGIO HEAD AND NECK, 03/13/2025, 12:09. FINDINGS: Image quality: Diagnostic. Cerebral CT Angiogram: Internal carotid arteries: Calcified atherosclerotic plaque involving the cavernous segments of both ICA results in 50% stenosis on left Anterior cerebral arteries: Unremarkable. No significant stenosis. No occlusion. No aneurysm. Middle cerebral arteries: Unremarkable. No significant stenosis. No occlusion. No aneurysm. Posterior cerebral arteries: Unremarkable. No significant stenosis. No occlusion. No aneurysm. Basilar artery: Unremarkable. No significant stenosis. No occlusion. No aneurysm. Vertebral arteries: Unremarkable as visualized. Dural venous sinuses: Unremarkable given phase of enhancement. Other: Arterial phase appearance of the brain parenchyma is unremarkable. Neck CT Angiogram: Internal carotid arteries: Atherosclerotic plaque without significant stenosis utilizing NASCET criteria Common carotid arteries: Unremarkable. No significant stenosis. No dissection or occlusion. External carotid arteries: Unremarkable. No occlusion. Vertebral arteries: Unremarkable. No significant stenosis. No dissection or occlusion. 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 The right vertebral artery arises from the base of the right common carotid artery. Other: Arterial phase soft tissues of the neck and chest are unremarkable. Left thyroid nodule 2.2 cm IMPRESSION: Atherosclerotic calcification results in 50% left cavernous ICA stenosis without occlusion. Otherwise, no intracranial large vessel occlusion, aneurysm or vascular malformation. Atherosclerotic plaque in both proximal ICA present without stenosis utilizing NASCET criteria. Approved by: Daniel Mcclendon M.D. on 05/01/2025 at 10:14 CT chest abdomen and pelvis: Radiologist's Impression: [address] [address] [address] Scan Report Signed Patient: Elena Rodriguez MR#: [id number] : 1945 Acct:[id number] Age/Sex: 80 / F Date of Service: 05/01/25 Loc: ED Accession Number: [id number] Procedure: CT chest abd pel w con Ordering Provider: Ivan Velasquez MD PROCEDURE: CT CHEST ABD PEL W CON INDICATIONS: Fall/injury TECHNIQUE: After the administration of intravenous contrast, 5 mm thick sections acquired from the lung apices to the symphysis. 2.5 mm thick coronal and sagittal reformats were acquired. Additional 7 mm thick coronal maximum intensity projection (MIP) reformats acquired through the lungs. Optional 10-minute delayed imaging may be performed from the kidneys to the bladder. For radiation dose reduction, the following was used: automated exposure control, adjustment of mA and/or kV according to patient size. COMPARISON: [facility], CT, CT ABDOMEN PELVIS W CON, 02/18/2025, 14:05. [facility], CT, CT ABDOMEN PELVIS W CON, 04/17/2025, 23:10. FINDINGS: Image quality: Diagnostic. CHEST: Lower Neck: No enlarged lymph nodes. Thyroid: Several nodules in the thyroid gland, some exophytic. Largest measures up to 1.6 cm. Axillae: No suspicious adenopathy. Chest Wall: No visible chest wall contusions or subcutaneous emphysema. Lungs and Pleura: Small, dependently layering bilateral pleural effusions. Fluid in the fissures. No pneumothorax. Dependent consolidative changes. No suspicious ground-glass opacities. The airways are narrowed as the study was acquired in exhalation. Mediastinum: The heart is enlarged. Small dependent pericardial effusion is seen. Moderate coronary artery calcification and aortic valvular calcification. No acute mediastinal hematomas. No acute aortic syndrome given motion artifact. No pathologic mediastinal or hilar adenopathy. Normal esophagus without hiatal hernia. ABDOMEN: Liver: Scattered hypodensities. Decreased liver attenuation. No lacerations. Gallbladder: Surgically absent. Biliary ducts: Appropriate biliary tree caliber post cholecystectomy. Pancreas: Atrophic. No transsection. Spleen: Normal size and appearance no perisplenic fluid. Adrenal Glands: Symmetric enhancement. Kidneys and Ureters: Symmetric enhancement. No perinephric hematoma or laceration. Nonobstructing stones in the left collecting system. Nondilated ureters. Stomach and Bowel: Decompressed stomach and bowel loops. No suspicious wall thickening or interloop fluid collection. Peritoneum: No free fluid or free air. Ventral Wall: Tiny, wide necked fat containing supraumbilical hernia. Abdominal Nodes: No retroperitoneal adenopathy or hematoma. No mesenteric mass or hematoma. Vessels: The abdominal aorta, IVC, and portal vein are of normal caliber. PELVIS: Pelvic Organs: Hysterectomy. Mildly heterogeneous left ovarian mass at 2.8 cm and heterogeneous right ovary measuring 2.2 cm. Bladder: Decompressed with a Payan catheter. No perivesicular fluid. Pelvic Nodes: Borderline bilateral external iliac chain lymph nodes, chronic. Miscellaneous: No acute pelvic hematoma or free pelvic fluid. No extrapelvic soft tissue abnormalities or hematoma. Bones: There is motion artifact through the pelvis and nondisplaced fracture cannot be entirely excluded but there are no secondary signs to indicate fracture. There is an acute vertebral body fracture of the L1 with indentation of the superior and inferior endplates. No retropulsion of posterior column. No other fractures. IMPRESSION: Acute L1 vertebral body fracture without retropulsion of fragments. No other CT evidence of acute trauma to the chest, abdomen, or pelvis. Increased size of small bilateral pleural effusions since the most recent CT scan. This could be secondary to volume overload or heart failure. Central process is suspected given bilaterality. Incidental intra-abdominal findings are chronic and stable compared to recent CT scans. Heterogeneous thyroid gland. Follow-up thyroid ultrasound as an outpatient is recommended. Dictated by: Baylee Frazier M.D. on 05/01/2025 at 11:29 Approved by: Baylee Frazier M.D. on 05/01/2025 at 11:51 MDM Narrative Medical decision making narrative: Blood sugar 215 by EMS. Patient has been postictal for 1 hour. Patient brought in by ambulance from home. Witnessed seizure by duration 1 minute tonic-clonic. According to EMS, has been heard patient fall uncertain from bed level or from standing level. EMS found her between the wall and the bed. Patient does have history of seizures on Keppra and has been compliant. Recent seen in the office/clinic 2 days ago for headache. Otherwise no recent illness. 9:40 a.m.. has now arrived. 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 She was seen by neurologist years ago and placed on Keppra. Patient according to has been does have postictal episodes like similar to now. Patient has been on the same dose of Keppra for many years. Has been taking her Keppra as prescribed.. MDM After history and exam, seizure precautions bus monitor CT head CT chest abdomen and pelvis CT cervical spine and CT angiogram head and neck normal saline urinalysis CBC CMP lactic acid EKG troponin, Differential considered: Includes but not limited to seizure/postictal, STEMI non-STEMI stroke TIA dehydration sepsis Medical records reviewed: April 18, 2025 ER visit admission to the hospital Lab Test results independently reviewed as above. Pertinent findings: WBC 15.5 hemoglobin 11.8 INR 1.0 sodium 141 potassium 2.7 BUN 8 creatinine 0.66 GFR greater than 60 glucose 213 lactic acid 7.3 alcohol less than 10 Troponin 0.35, bicarb 17 urinalysis negative nitrate negative leukocyte esterase positive ketones Independently reviewed EKG normal sinus rhythm rate 83 prolonged QT 507 Imaging studies independently reviewed: CT head no acute finding CT angio head neck no acute finding, CT chest abdomen pelvis, acute L1 fracture Consultations: 11:18 a.m.. I spoke with cardiology, dr matias, no heparin at this time, need to lower blood pressure. 11:43 a.m.. I spoke with [facility] receiving provider, Dr. Winkler she will accept patient to the progressive care unit. 3:30 p.m.. I spoke with [facility] neurologist. Dr. Connolly, at this time he can not accept patient because they do not have EEG capability. We will have to transfer elsewhere. However he was gracious to recommend medications. At this time recommends fosphenytoin 18-20 milligrams/kilogram bolus loading dose and then followed by 100 mg of fosphenytoin IV every 8 hours. Continue Keppra 1.5 g twice a day. If no improvement after bolus of fosphenytoin and then recommends intubation after 1 hour. Re-evaluations: 9:42 a.m.. Patient having another seizure. Ativan Keppra ordered. 1:49 p.m.. Patient just had another brief 1 minute generalized seizure. Responded very well with 0.5 mg Ativan. Has been/family at bedside. They do understand need for transfer still waiting for bed at [facility]. Keppra 1000 mg has been reordered. 11:20 a.m.. I spoke with . He does understand patient needs to be transferred for higher level of care including neurology and cardiology services. Patient may have had a heart attack. However patient is still postictal. Unable to verbalize. 2:57 p.m.. Nicardipine drip has been started. Patient has not had improvement with blood pressure medications.. Calling [facility] to update medication changes and repeated seizure episodes. Airway intact. Not requiring intubation at this time. 3:01 p.m.. I spoke with [facility]. She will contact provider to ensure no changes in bed assignment now that nicardipine drip will be started. 3:49 p.m.. I spoke with and granddaughter. state patient would never want to be intubated. They do not wish for intubation if it came to that point. He does understand that uncontrolled seizure can lead to /respiratory failure. Discussion: Appropriate for transfer for higher level care neurology and cardiology services. Rocephin/antibiotic has been started. Cardiology Services contacted. No heparin at this time. Leukocytosis may be due to demargination from seizure. As well as lactic acid. Diagnosis: Elevated troponin, seizure, hypokalemia, leukocytosis 3:[address] Velasquez: Sign-out to Dr. Sands, [facility] unable to take patient because no EEG available till tomorrow. However it did speak with neurology services from [facility] and medications implemented. Awaiting call back from facilities that have EEG capability. Cardiology services was contacted. Per , patient is not to be intubated. <Fredrick Sands MD - Last Filed: 05/01/25 22:18> Medical Records Attestation: I reviewed the patient's medical records. Lab Data Labs: Lab Results 05/01/25 05/01/25 05/01/25 Range/Units 09:46 10:13 10:13 WBC 15.5 H (4.5-11.0) X10^3/uL RBC 4.08 (4.0-5.2) X10^6/uL Hgb 11.8 L (12.0-16.0) g/dL Hct 35.3 L (36-46) % MCV 86.5 (80-100) fL MCH 29.0 (26-34) PG MCHC 33.5 (30-36) % RDW 14.4 (11.6-14.8) % Plt Count 256 (150-400) X10^3/uL Neut % (Auto) 63.0 (50-75) % Lymph % (Auto) 34.0 (25-40) % [place] % (Auto) 2.7 L (3-14) % Eos % (Auto) 0.2 L (2-4) % Baso % (Auto) 0.1 (0-2) % Neut # (Auto) 9800 H (2889-2655) /uL Lymph # (Auto) 5300 H (1922-8950) /uL [place] # (Auto) 400 (0-900) /uL Eos # (Auto) 0 (0-450) /uL Baso # (Auto) 0 (0-100) /uL PT 11.7 (9.4-12.5) SECONDS INR 1.0 (0.9-1.3) APTT 18 L (25.1-36.5) SECONDS Sodium 141 (137-145) mmol/L Potassium 2.7 L* (3.4-5.1) mmol/L Chloride 105 (98-107) mmol/L Carbon Dioxide 17 L (22-32) mmol/L BUN 8 (7-17) mg/dL Creatinine 0.66 (0.52-1.04) mg/dL Estimated GFR > 60 (>60) mL/min BUN/Creatinine Ratio 12.1 (6-22) Glucose 213 H D (70-99) mg/dL Lactate 7.3 H* (0.7-2.1) mmol/L Calcium 8.5 (8.4-10.2) mg/dL Total Bilirubin 0.9 (0.2-1.3) mg/dL AST 86 H (14-36) IU/L ALT 59 H (<35) IU/L Alkaline Phosphatase 79 (38-126) U/L Total Creatine Kinase 109 (30-135) U/L Troponin I 0.355 H* (0.01-0.034) ng/mL Total Protein 6.6 (6.3-8.2) g/dL Albumin 4.0 (3.5-5.0) g/dL Globulin 2.6 (1.7-4.1) g/dL Albumin/Globulin Ratio 1.5 (1.0-2.8) Procalcitonin (<0.5) ng/mL Urine Color Yellow Urine Appearance Clear Urine pH 6.0 Normal (4.5-8.0) Ur Specific [place] 1.020 (1.000-1.035) Urine Protein 3+ H (Negative) Urine Glucose (UA) Trace H (Negative) g/dL Urine Ketones 1+ H (NEGATIVE) Urine Occult Blood 2+ H (Negative) Urine Nitrate Negative (Negative) Urine Bilirubin Negative (NEGATIVE) Urine Urobilinogen 0.2 (0.2) E.U./dL Ur Leukocyte Esterase Negative (NEGATIVE) Urine RBC 0-1/hpf (0-5/HPF) Urine WBC None seen (0-5/HPF) Ur Squamous Epith Cells None seen (0-5/HPF) Amorphous Sediment 1+ Urine Bacteria None seen (None) Hyaline Casts 0-1/lpf (None) Ur Culture Indicated? Cult not indicated Vol Urine Centrifuged 10ml (spun) U Opiates 300ng/mL cut Negative (Negative) Ur Oxycodone Screen Negative (Negative) Urine Methadone Screen Negative (Negative) Ur Barbiturates Screen Negative (Negative) U Tricyclic Antidepress Negative (Negative) Ur Phencyclidine Scrn Negative (Negative) Ur Amphetamines Screen Negative (Negative) U Methamphetamines Scrn Negative (Negative) Ur MDMA Scrn (Ecstasy) Negative (Negative) U Benzodiazepines Scrn Negative (Negative) Urine Cocaine Screen Negative (Negative) U Marijuana (THC) Screen Negative (Negative) Urine Specific [place] Normal (Normal) Ethyl Alcohol < 10 (<10) mg/dL Ur Creatinine Normal (Normal) 05/01/25 05/01/25 Range/Units 11:50 14:35 WBC (4.5-11.0) X10^3/uL RBC (4.0-5.2) X10^6/uL Hgb (12.0-16.0) g/dL Hct (36-46) % MCV (80-100) fL MCH (26-34) PG MCHC (30-36) % RDW (11.6-14.8) % Plt Count (150-400) X10^3/uL Neut % (Auto) (50-75) % Lymph % (Auto) (25-40) % [place] % (Auto) (3-14) % Eos % (Auto) (2-4) % Baso % (Auto) (0-2) % Neut # (Auto) (4281-6573) /uL Lymph # (Auto) (2684-2410) /uL [place] # (Auto) (0-900) /uL Eos # (Auto) (0-450) /uL Baso # (Auto) (0-100) /uL PT (9.4-12.5) SECONDS INR (0.9-1.3) APTT (25.1-36.5) SECONDS Sodium 138 (137-145) mmol/L Potassium 2.8 L (3.4-5.1) mmol/L Chloride 106 (98-107) mmol/L Carbon Dioxide 17 L (22-32) mmol/L BUN 6 L (7-17) mg/dL Creatinine 0.56 (0.52-1.04) mg/dL Estimated GFR > 60 (>60) mL/min BUN/Creatinine Ratio 10.7 (6-22) Glucose 174 H (70-99) mg/dL Lactate 4.6 H* 6.6 H* (0.7-2.1) mmol/L Calcium 7.9 L (8.4-10.2) mg/dL Total Bilirubin (0.2-1.3) mg/dL AST (14-36) IU/L ALT (<35) IU/L Alkaline Phosphatase (38-126) U/L Total Creatine Kinase (30-135) U/L Troponin I 0.842 H* (0.01-0.034) ng/mL Total Protein (6.3-8.2) g/dL Albumin (3.5-5.0) g/dL Globulin (1.7-4.1) g/dL Albumin/Globulin Ratio (1.0-2.8) Procalcitonin 0.047 (<0.5) ng/mL Urine Color Urine Appearance Urine pH (4.5-8.0) Ur Specific [place] (1.000-1.035) Urine Protein (Negative) Urine Glucose (UA) (Negative) g/dL Urine Ketones (NEGATIVE) Urine Occult Blood (Negative) Urine Nitrate (Negative) Urine Bilirubin (NEGATIVE) Urine Urobilinogen (0.2) E.U./dL Ur Leukocyte Esterase (NEGATIVE) Urine RBC (0-5/HPF) Urine WBC (0-5/HPF) Ur Squamous Epith Cells (0-5/HPF) Amorphous Sediment Urine Bacteria (None) Hyaline Casts (None) Ur Culture Indicated? Vol Urine Centrifuged U Opiates 300ng/mL cut (Negative) Ur Oxycodone Screen (Negative) Urine Methadone Screen (Negative) Ur Barbiturates Screen (Negative) U Tricyclic Antidepress (Negative) Ur Phencyclidine Scrn (Negative) Ur Amphetamines Screen (Negative) U Methamphetamines Scrn (Negative) Ur MDMA Scrn (Ecstasy) (Negative) U Benzodiazepines Scrn (Negative) Urine Cocaine Screen (Negative) U Marijuana (THC) Screen (Negative) Urine Specific [place] (Normal) Ethyl Alcohol (<10) mg/dL Ur Creatinine (Normal) Imaging Data Chest x-ray: My Impression: Initial portable chest x-ray after intubation and central line placement revealed the ET tube to be in the right mainstem bronchus. This was pulled back and repeat film revealed good positioning of the ET tube and central venous line. ECG Data Attestation: I personally reviewed and interpreted this ECG as follows: (Sinus tachycardia at 1:21 a.m.. LBBB. No ischemic changes otherwise) MDM Narrative Medical decision making narrative: Blood sugar 215 by EMS. Patient has been postictal for 1 hour. Patient brought in by ambulance from home. Witnessed seizure by duration 1 minute tonic-clonic. According to EMS, has been heard patient fall uncertain from bed level or from standing level. EMS found her between the wall and the bed. Patient does have history of seizures on Keppra and has been compliant. Recent seen in the office/clinic 2 days ago for headache. Otherwise no recent illness. 9:40 a.m.. has now arrived. 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 She was seen by neurologist years ago and placed on Keppra. Patient according to has been does have postictal episodes like similar to now. Patient has been on the same dose of Keppra for many years. Has been taking her Keppra as prescribed.. MDM After history and exam, seizure precautions bus monitor CT head CT chest abdomen and pelvis CT cervical spine and CT angiogram head and neck normal saline urinalysis CBC CMP lactic acid EKG troponin, Differential considered: Includes but not limited to seizure/postictal, STEMI non-STEMI stroke TIA dehydration sepsis Medical records reviewed: April 18, 2025 ER visit admission to the hospital Lab Test results independently reviewed as above. Pertinent findings: WBC 15.5 hemoglobin 11.8 INR 1.0 sodium 141 potassium 2.7 BUN 8 creatinine 0.66 GFR greater than 60 glucose 213 lactic acid 7.3 alcohol less than 10 Troponin 0.35, bicarb 17 urinalysis negative nitrate negative leukocyte esterase positive ketones Independently reviewed EKG normal sinus rhythm rate 83 prolonged QT 507 Imaging studies independently reviewed: CT head no acute finding CT angio head neck no acute finding, CT chest abdomen pelvis, acute L1 fracture Consultations: 11:18 a.m.. I spoke with cardiology, dr matias, no heparin at this time, need to lower blood pressure. 11:43 a.m.. I spoke with [facility] receiving provider, Dr. Winkler she will accept patient to the progressive care unit. 3:30 p.m.. I spoke with [facility] neurologist. Dr. Connolly, at this time he can not accept patient because they do not have EEG capability. We will have to transfer elsewhere. However he was gracious to recommend medications. At this time recommends fosphenytoin 18-20 milligrams/kilogram bolus loading dose and then followed by 100 mg of fosphenytoin IV every 8 hours. Continue Keppra 1.5 g twice a day. If no improvement after bolus of fosphenytoin and then recommends intubation after 1 hour. Re-evaluations: 9:42 a.m.. Patient having another seizure. Ativan Keppra ordered. 1:49 p.m.. Patient just had another brief 1 minute generalized seizure. Responded very well with 0.5 mg Ativan. Has been/family at bedside. They do understand need for transfer still waiting for bed at [facility]. Keppra 1000 mg has been reordered. 11:20 a.m.. I spoke with . He does understand patient needs to be transferred for higher level of care including neurology and cardiology services. Patient may have had a heart attack. However patient is still postictal. Unable to verbalize. 2:57 p.m.. Nicardipine drip has been started. Patient has not had improvement with blood pressure medications.. Calling [facility] to update medication changes and repeated seizure episodes. Airway intact. Not requiring intubation at this time. 3:01 p.m.. I spoke with [facility]. She will contact provider to ensure no changes in bed assignment now that nicardipine drip will be started. 3:49 p.m.. I spoke with and granddaughter. state patient would never want to be intubated. They do not wish for intubation if it came to that point. He does understand that uncontrolled seizure can lead to /respiratory failure. Discussion: Appropriate for transfer for higher level care neurology and cardiology services. Rocephin/antibiotic has been started. Cardiology Services contacted. No heparin at this time. Leukocytosis may be due to demargination from seizure. As well as lactic acid. Diagnosis: Elevated troponin, seizure, hypokalemia, leukocytosis 3:[address] Velasquez: Sign-out to Dr. Sands, [facility] unable to take patient because no EEG available till tomorrow. However it did speak with neurology services from [facility] and medications implemented. Awaiting call back from facilities that have EEG capability. Cardiology services was contacted. Per , patient is not to be intubated. 19:45 During my care of the patient I discussed her intubation and code status with her spouse who agreed to intubation so that we could medicate her more aggressively for status epilepticus. Patient was intubated and a central line placed for her various medications. She is DNR status. I discussed her care with neurointensivist at [facility] both the initial doctor and his colleague later as documented under course in the ER. Patient left with seizures controlled on a propofol and fentanyl drip with intubation. Currently not on nicardipine which was started earlier for her severe hypertension. She has been stable on that account at the time of transfer. Critical Care Time <Ivan Velasquez MD - Last Filed: 05/23/25 07:13> Critical Care Time Attestation: Critical Care Time 35 minutes: Critical care time is separate from other billable procedures. This critical care time includes consultation with family and other consulting doctors, review of records, and interpretation of data from labs, EKGs, imaging, etc. <Fredrick Sands MD - Last Filed: 05/01/25 22:18> Critical Care Time Attestation: Critical Care Time 70 minutes: Critical care time is separate from other billable procedures. This critical care time includes consultation with family and other consulting doctors, review of records, and interpretation of data from labs, EKGs, imaging, etc. I am adding extra critical care time in addition to Dr. Velasquez. Patient has been on constant monitoring with frequent reassessments of her status in regard to vital signs and seizures. She has had multiple medications and interventions. Consultation with family regarding intubation status and history. Consultation with multiple physicians including receiving physician at [facility]. Discharge Plan Departure Patient Disposition: [facility] Clinical Impression: Generalized seizure, Acute hypokalemia Leukocytosis Qualifiers: Leukocytosis type: unspecified Qualified Code(s): D72.829 - Elevated white blood cell count, unspecified Prescriptions: No Action atorvastatin 40 mg Tablet 40 mg PO BEDTIME Qty: 0 aspirin 81 mg Tablet,Delayed Release (Dr/Ec) 81 mg PO DAILY Qty: 0 nitroglycerin 0.4 mg Tablet, Sublingual 0.4 mg SUBLINGUAL Q5M PRN (Reason: Chest Pain) Qty: 0 albuterol sulfate 90 mcg/actuation Hfa Aerosol Inhaler 2 puff INHALATION QID Qty: 0 Lantus Solostar U-100 Insulin 100 unit/mL (3 mL) insulin pen 30 unit SUBCUT 0800 Qty: 15 3RF tramadol 50 mg tablet 50 mg PO Q8H PRN (Reason: pain) Qty: 7 0RF Rx Instructions: May cause drowsiness oxycodone 5 mg tablet 5 mg PO Q6H PRN (Reason: pain) Qty: 10 0RF (DME) pen needle, diabetic [Pen Needle] 31 gauge x 3/16 needle See Rx Instructions .Route Qty: 50 0RF Rx Instructions: As directed (DME) lancets [Lancets,Thin] Misc See Rx Instructions .Route Qty: 100 0RF Rx Instructions: As directed, QID testing Glucometer and testing strips See Rx Instructions .ROUTE .COMPLEX Qty: 1 0RF Rx Instructions: Glucometer and testing strips for testing 4x/day hydrocodone-acetaminophen 5-325 mg tablet 1 tab PO Q4-6H PRN (Reason: pain) Qty: 14 0RF hydrocodone-acetaminophen 5-325 mg tablet 1 tab PO Q4-6H PRN (Reason: pain) Qty: 14 0RF hydrocodone-acetaminophen 5-325 mg tablet 1 tab PO Q4-6H PRN (Reason: pain) Qty: 14 0RF hydrocodone-acetaminophen 5-325 mg tablet 1 tab PO Q4-6H PRN (Reason: pain) Qty: 14 0RF nitrofurantoin monohyd/m-cryst [Macrobid] 100 mg capsule 100 mg PO BID Qty: 14 0RF Rx Instructions: must administer with a meal/food gabapentin 600 mg tablet 600 mg PO TID metoprolol succinate [Toprol XL] 25 mg tablet extended release 24 hr 25 mg PO DAILY docusate calcium 240 mg capsule 240 mg PO TID fenofibrate nanocrystallized 145 mg tablet 145 mg PO DAILY Rx Instructions: triglyde brand name levetiracetam [Keppra] 500 mg tablet 1,000 mg PO BID ondansetron 4 mg tablet,disintegrating 4 mg PO Q8H PRN eletriptan 40 mg tablet 40 mg PO ONCE insulin aspart U-100 [Novolog FlexPen U-100 Insulin] 100 unit/mL (3 mL) insulin pen 1 sliding scale dose SUBCUT DAILY Patient Comments: [NO ORIGINAL SIG] (DME) FreeStyle Chris 2 Sensor Kit See Rx Instructions .ROUTE .MEDSUPPLY Qty: 1 Patient Comments: [NO ORIGINAL SIG] Rx Instructions: As directed (DME) Dexcom G7 Sensor Device See Rx Instructions .ROUTE .MEDSUPPLY Qty: 1 Patient Comments: [NO ORIGINAL SIG] Rx Instructions: As directed Veozah 45 mg tablet 45 mg PO DAILY (DME) Dexcom G7 Certified Industrial Hygienist Misc See Rx Instructions .ROUTE .MEDSUPPLY Qty: 1 Patient Comments: [NO ORIGINAL SIG] Rx Instructions: As directed (DME) pen needle, diabetic [Easy Touch] 31 gauge x 5/16 needle See Rx Instructions .ROUTE .MEDSUPPLY Qty: 1200 Patient Comments: [NO ORIGINAL SIG] Rx Instructions: As directed Combivent Respimat 20-100 mcg/actuation mist 1 puff inhalation 4XD pantoprazole 40 mg tablet,delayed release (DR/EC) 40 mg PO BID Mounjaro 2.5 mg/0.5 mL pen injector SUBCUT Patient Comments: [NO ORIGINAL SIG] Referrals: Jose Alberto Parrish MD [Primary Care Provider, Family Practice]
--- NOTE | 2025-05-01 09:27 | EKG_ITS ---
[place] [address] [place] [id number] Test Date: 2025-05-01 Pat Name: Elena Rodriguez Department: [facility] Room: Gender: Female Fur Clipper: : 1945 Requested By: Order Number: [id number] Reading MD: Jaron Rincon Measurements Intervals [place] Rate: 83 P: 37 DE: 160 QRS: -6 QRSD: 80 T: 13 QT: 432 QTc: 507 Interpretive Statements Normal sinus rhythm Nonspecific ST and T wave abnormality Prolonged QT Electronically Signed On 05-02-2025 8:14:33 PDT by Jaron Rincon
[2025-05-01 09:54] LABS: Add Manual Diff / Slide Review NO; Hematocrit 35.3 % (36-46); Hemoglobin 11.8 g/dL (12.0-16.0); Lymphocytes Absolute Auto 5300 /uL (1100-4500); Mean Corpuscular HGB Conc 33.5 % (30-36); Mean Corpuscular Hemoglobin 29.0 PG (26-34); Mean Corpuscular Volume 86.5 fL (80-100); Platelet Count 256 X10^3/uL (150-400)
[2025-05-01] MEDS: SODIUM CHLORIDE 0.9% 1,000 ML 1000 ML IV (09:55)
[2025-05-01 10:02] LABS: INR 1.0 (0.9-1.3); Prothrombin Time 11.7 SECONDS (9.4-12.5)
[2025-05-01 10:05] LABS: PTT Partial Thromboplastin Tim 18 SECONDS (25.1-36.5)
[2025-05-01 10:11] LABS: Creatine Kinase 109 U/L (30-135); Ethanol (ETOH) < 10 mg/dL (<10)
[2025-05-01 10:12] LABS: Alanine Aminotransferase 59 IU/L (<35); Albumin 4.0 g/dL (3.5-5.0); Albumin Globulin Ratio 1.5 (1.0-2.8); Alkaline Phosphatase 79 U/L (38-126); Blood Urea Nitrogen 8 mg/dL (7-17); Calcium 8.5 mg/dL (8.4-10.2); Carbon Dioxide 17 mmol/L (22-32); Chloride 105 mmol/L (98-107); Estimated Glomerular Filt Rate > 60 mL/min (>60); Globulin 2.6 g/dL (1.7-4.1); Glucose 213 mg/dL (70-99); HEMOLYSIS 36 (0-50); Sodium 141 mmol/L (137-145); Total Protein 6.6 g/dL (6.3-8.2)
[2025-05-01 10:30] LABS: Potassium 2.7 mmol/L (3.4-5.1)
[2025-05-01 10:31] LABS: Lactate (Lactic Acid) 7.3 mmol/L (0.7-2.1)
[2025-05-01 10:57] LABS: Troponin I 0.355 ng/mL (0.01-0.034)
--- NOTE | 2025-05-01 11:03 | DI.CT.S_ITS ---
PROCEDURE: CT HEAD/BRAIN WO CON INDICATIONS: Fall/injury TECHNIQUE: Noncontrast 4.5 mm thick angled axial sections acquired from the foramen magnum to the vertex, with coronal and sagittal reformats. For radiation dose reduction, the following was used: automated exposure control, adjustment of mA and/or kV according to patient size. COMPARISON: [facility], CT, CT HEAD/BRAIN WO CON, 03/13/2025, 12:09. FINDINGS: CSF spaces: Basal cisterns are patent. No extra-axial fluid collections. Ventricles are normal in size and shape. Brain: No midline shift. No intracranial mass effect or hemorrhage. [place]- white matter interface is normal. Skull and face: Calvarium and visualized facial bones are intact, without suspicious lesions. Sinuses: Visualized sinuses and mastoids are clear. IMPRESSION: Atrophy and chronic ischemic change without acute hemorrhage or mass Approved by: Daniel Mcclendon M.D. on 05/01/2025 at 10:06
--- NOTE | 2025-05-01 11:14 | PC.NURSE ---
When pt arrived with EMS pt was post-ictal and very confused but with full ROM. Unable to follow commands or respond verbally but redirectable. After pts arrival pt seized with multiple people at bedside presenting with tonic clonic activity for about 30 seconds, oxygen and suction applied. notified.
[2025-05-01 11:23] LABS: Appearance Urine UA CLEAR; Bilirubin Urine UA NEGATIVE (NEGATIVE); Color Urine UA YELLOW; Glucose Urine UA TRACE g/dL (Negative); Ketones Urine UA 1+ (NEGATIVE); Leukocyte Esterase Urine UA NEGATIVE (NEGATIVE); Nitrite Urine UA NEGATIVE (Negative); Occult Blood Urine UA 2+ (Negative); Protein Urine UA 3+ (Negative); Specific Gravity Urine UA 1.020 (1.000-1.035); Urobilinogen Urine UA 0.2 E.U./dL (0.2)
[2025-05-01 11:25] LABS: Reflexed Lactate in 2 Hours Y
[2025-05-01 11:25] LABS: pH Urine UA 6.0 (4.5-8.0)
[2025-05-01 11:29] LABS: Ur Creatinine Normal (Normal); Ur Specific Gravity Normal (Normal); Urine MDMA Negative (Negative); Urine Methamphetamines Negative (Negative); Urine THC Negative (Negative); Urine Tricyclic Antidepressant Negative (Negative); Urine pH Normal (Normal)
[2025-05-01 11:31] LABS: Culture Indicated Urine Cult Not Indicated
[2025-05-01] MEDS: LABETALOL 20 MG/4 ML SYRINGE 10 MG IV (11:35)
[2025-05-01] MEDS: cefTRIAXone 2,000 MG in SODIUM CHLORIDE 0.9% 100 ML 200 MG IV (11:59)
[2025-05-01] MEDS: POTASSIUM CHLORIDE IN WATER 10 MEQ/100 ML PIGGYBACK 100 MEQ IV ×2 (12:00→13:24)
[2025-05-01 12:22] LABS: Lactate 2HR (Lactic Acid Rflx) 4.6 mmol/L (0.7-2.1)
[2025-05-01 12:38] LABS: Procalcitonin 0.047 ng/mL (<0.5)
[2025-05-01] MEDS: hydrALAZINE 20 MG/ML VIAL 10 MG IV (13:56)
[2025-05-01] MEDS: SODIUM CHLORIDE 0.9% 1,000 ML 130 ML IV (14:05)
[2025-05-01 15:01] LABS: Lactate (Lactic Acid) 6.6 mmol/L (0.7-2.1)
[2025-05-01 15:32] LABS: Troponin I 0.842 ng/mL (0.01-0.034)
[2025-05-01 16:14] LABS: Reflexed Lactate in 2 Hours Y
[2025-05-01 16:22] LABS: Blood Urea Nitrogen 6 mg/dL (7-17); Calcium 7.9 mg/dL (8.4-10.2); Carbon Dioxide 17 mmol/L (22-32); Chloride 106 mmol/L (98-107); Estimated Glomerular Filt Rate > 60 mL/min (>60); Glucose 174 mg/dL (70-99); HEMOLYSIS 21 (0-50); Potassium 2.8 mmol/L (3.4-5.1); Sodium 138 mmol/L (137-145)
[2025-05-01] MEDS: FOSPHENYTOIN IV (16:27)
[2025-05-01] MEDS: SODIUM CHLORIDE 0.9% IV (16:27)
--- NOTE | 2025-05-01 16:29 | EKG_ITS ---
[address] [address] Test Date: 2025-05-01 Pat Name: Elena Rodriguez Department: Room: Gender: Female Ladle Handler: TRESSA : 1945 Requested By: Order Number: [id number] Reading MD: Jaron Rincon Measurements Intervals [place] Rate: 121 P: 28 MS: 134 QRS: 21 QRSD: 124 T: 85 QT: 438 QTc: 621 Interpretive Statements Sinus tachycardia Left bundle branch block Electronically Signed On 05-02-2025 8:15:40 PDT by Jaron Rincon
[2025-05-01] MEDS: SUCCINYLCHOLINE 200 MG/10 ML VIAL 80 MG IV (17:12)
--- NOTE | 2025-05-01 18:44 | DI.RAD.S_ITS ---
PROCEDURE: XR CHEST 1V INDICATIONS: ET confirmation TECHNIQUE: One view of the chest was acquired. COMPARISON: [facility], CT, CT CHEST ABD PEL W CON, 05/01/2025, 10:38. [facility], CR, XR CHEST 1V, 03/13/2025, 11:44. [facility], CR, XR CHEST 1V, 02/19/2025, 12:58. FINDINGS: Surgical changes and devices: Endotracheal tube with tip overlying the mid intrathoracic trachea. Subdiaphragmatic enteric tube the tip distal to the field of view. Right subclavian central venous catheter with tip overlying the inferior SVC. Lungs and pleura: Left basilar, retrocardiac, consolidation. No pleural effusion or pneumothorax. Mediastinum: The mediastinum is rotated to the left secondary to patient rotation. Bones and chest wall: No suspicious bony lesions. Overlying soft tissues appear unremarkable. IMPRESSION: Interval intubation with appropriate positioning. Otherwise, lines and tubes as above. Retrocardiac consolidation may represent atelectasis versus possible aspiration. Dictated by: Yung Darling M.D. on 05/01/2025 at 19:26 Approved by: Yung Darling M.D. on 05/01/2025 at 19:28
[2025-05-01] MEDS: fentaNYL 1,000 MCG in DEXTROSE 5% IN WATER 230 ML 16.103 MCG IV (19:27)
== END 2025-05-01 19:40 | disposition short-term general hospital (02) ==
PROVIDERS: Emergency Medicine; Emergency Provider Emergency Medicine; PCP Family Medicine
DX: G40.409 Other generalized epilepsy and epileptic syndromes, not intractable, without status epilepticus (principal); S09.90XA Unspecified injury of head, initial encounter; R41.82 Altered mental status, unspecified; E87.6 Hypokalemia; D72.829 Elevated white blood cell count, unspecified
CPT/HCPCS: 31500; 36415; 36556; 70450; 70496; 70498; 71045; 71260; 74177; 80048; 80053; 80305; 80320; 81001; 82550; 83605; 84145; 84484; 85025; 85610; 85730; 87040; 93005; 96365; 96366; 96367; 96368; 96375; 96376; 99152; 99153; 99285; 99291; J0330; J0360; J0696; J1953; J2060; J2704; J3010; Q2009; Q9967

== ENCOUNTER 2025-05-20 09:48 | Emergency (ER) | payer MEDICARE, OTHER, SELFPAY ==
[2025-04-18 04:15] VITALS: BMI 26.8
[2025-05-20 10:30] VITALS: BP 209/98; PULSE 103; RESP 18; TEMP 36.8; O2SAT 98; BMI 28.3
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
[2025-05-20 11:00] VITALS: BP 214/93; PULSE 92; RESP 21; O2SAT 97
[2025-05-20] MEDS: KETOROLAC 30 MG/ML VIAL 15 MG IV (11:31)
[2025-05-20] MEDS: ONDANSETRON 4 MG/2 ML INJ IV (11:32)
[2025-05-20 11:55] LABS: Add Manual Diff / Slide Review NO; Hematocrit 34.8 % (36-46); Hemoglobin 11.5 g/dL (12.0-16.0); Lymphocytes Absolute Auto 4500 /uL (1100-4500); Mean Corpuscular HGB Conc 32.9 % (30-36); Mean Corpuscular Hemoglobin 28.6 PG (26-34); Mean Corpuscular Volume 86.8 fL (80-100); Platelet Count 218 X10^3/uL (150-400)
[2025-05-20 12:10] LABS: Alanine Aminotransferase 29 IU/L (<35); Albumin 3.9 g/dL (3.5-5.0); Albumin Globulin Ratio 1.3 (1.0-2.8); Alkaline Phosphatase 126 U/L (38-126); Blood Urea Nitrogen 6 mg/dL (7-17); Calcium 9.0 mg/dL (8.4-10.2); Carbon Dioxide 26 mmol/L (22-32); Chloride 102 mmol/L (98-107); Estimated Glomerular Filt Rate > 60 mL/min (>60); Globulin 2.9 g/dL (1.7-4.1); Glucose 119 mg/dL (70-99); HEMOLYSIS 53 (0-50); Lipase 29 U/L (23-300); Sodium 137 mmol/L (137-145); Total Protein 6.8 g/dL (6.3-8.2)
[2025-05-20 12:11] LABS: Potassium 4.4 mmol/L (3.4-5.1)
[2025-05-20 12:59] VITALS: BP 192/88; PULSE 88; RESP 16; O2SAT 95
== END 2025-05-20 13:00 | disposition home or self-care (01) ==
PROVIDERS: Emergency Provider Emergency Medicine; PCP Family Medicine
DX: M48.56XA Collapsed vertebra, not elsewhere classified, lumbar region, initial encounter for fracture (principal); M54.50 Low back pain, unspecified
CPT/HCPCS: 36415; 80053; 83690; 85025; 96374; 96375; 99284; J1885; J2405

== ENCOUNTER 2025-05-26 14:51 | Emergency (ER) | payer MEDICARE, OTHER, SELFPAY ==
[2025-04-18 04:15] VITALS: BMI 26.8
[2025-05-26] VITALS (13 sets, daily range): BP systolic 154–220; BP diastolic 76–90; PULSE 71–90; RESP 17–20; TEMP 36.6; O2SAT 94–97; BMI 26.8
--- NOTE | 2025-05-26 19:53 | PC.NURSE ---
Pt awake and alert sitting in ED stretcher speaking with when RN enters exam room. Pt engages appropriately with RN at this time. Pt states sz causing broken back on 05/01. Has been taking oxy 5 mg up to q6h but ran out with last dose being last night. Currently 8.5/10Has appointment with PMD on Wednesday. Pt denies any new symptoms, changes in CSM to lower extremities. Dr. Hamilton to bedside at this time. Pt remains connected to blood pressure and pulse ox monitors with alarms on and audible. Call light within reach. remains at bedside.
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
== END 2025-05-26 21:40 | disposition home or self-care (01) ==
PROVIDERS: Emergency Provider Family Medicine; PCP Family Medicine
DX: S32.010A Wedge compression fracture of first lumbar vertebra, initial encounter for closed fracture (principal); G40.909 Epilepsy, unspecified, not intractable, without status epilepticus; X58.XXXA Exposure to other specified factors, initial encounter
CPT/HCPCS: 99283

== ENCOUNTER 2025-06-14 13:22 | Emergency (ER) | payer MEDICARE, OTHER, SELFPAY ==
[2025-04-18 04:15] VITALS: BMI 26.8
[2025-06-14] VITALS (14 sets, daily range): BP systolic 173–213; BP diastolic 74–86; PULSE 69–83; RESP 15–32; TEMP 36.7; O2SAT 96–99; BMI 25.7
--- NOTE | 2025-06-14 13:55 | EKG_ITS ---
[address] [address] Test Date: 2025-06-14 Pat Name: Elena Rodriguez Department: [facility] Room: Gender: Female Fulfillment Coordinator: : 1945 Requested By: Order Number: [id number] Reading MD: Juan Rocha MD Measurements Intervals [place] Rate: 73 P: 19 ME: 150 QRS: 5 QRSD: 70 T: 37 QT: 384 QTc: 423 Interpretive Statements Normal sinus rhythm Electronically Signed On 06-14-2025 14:36:48 PST by Juan Rocha MD
--- NOTE | 2025-06-14 13:55 | DI.RAD.S_ITS ---
PROCEDURE: XR CHEST 1V INDICATIONS: Chest Pain TECHNIQUE: One view of the chest was acquired. COMPARISON: [facility], CR, XR CHEST 1V, 05/01/2025, 18:45. FINDINGS: Mildly enlarged cardiopericardial silhouette less than on the prior exam. Mild bibasilar subsegmental atelectasis. Mild bilateral perihilar and lower lobe peribronchial thickening, less than on the prior exam, some of which may be related expiratory result; however, bronchitis, viral infection, asthma or other process should be considered. Mild blunting left costophrenic angle similar to the prior exam may represent small pleural effusion or pleural thickening. No large pleural effusion. No pneumothorax. IMPRESSION: Mild subsegmental atelectasis and peribronchial thickening less than the prior exam. If symptoms persist or worsen, or there is high clinical suspicion of thoracic abnormality, CT chest could be performed. Dictated by: Sukhi Reyes M.D. on 06/14/2025 at 15:33 Approved by: Sukhi Reyes M.D. on 06/14/2025 at 15:40
[2025-06-14 14:05] LABS: INR 1.0 (0.9-1.3); Prothrombin Time 11.2 SECONDS (9.4-12.5)
[2025-06-14 14:06] LABS: Add Manual Diff / Slide Review NO; Hematocrit 33.6 % (36-46); Hemoglobin 11.5 g/dL (12.0-16.0); Lymphocytes Absolute Auto 3400 /uL (1100-4500); Mean Corpuscular HGB Conc 34.2 % (30-36); Mean Corpuscular Hemoglobin 29.2 PG (26-34); Mean Corpuscular Volume 85.4 fL (80-100); Platelet Count 222 X10^3/uL (150-400)
[2025-06-14 14:08] LABS: PTT Partial Thromboplastin Tim 27 SECONDS (25.1-36.5)
[2025-06-14 14:09] LABS: Alanine Aminotransferase 18 IU/L (<35); Albumin 3.7 g/dL (3.5-5.0); Albumin Globulin Ratio 1.4 (1.0-2.8); Alkaline Phosphatase 59 U/L (38-126); Blood Urea Nitrogen 11 mg/dL (7-17); Calcium 9.2 mg/dL (8.4-10.2); Carbon Dioxide 26 mmol/L (22-32); Chloride 108 mmol/L (98-107); Creatine Kinase 21 U/L (30-135); Estimated Glomerular Filt Rate > 60 mL/min (>60); Globulin 2.7 g/dL (1.7-4.1); Glucose 112 mg/dL (70-99); HEMOLYSIS < 15 (0-50); Lipase 27 U/L (23-300); Magnesium 1.7 mg/dL (1.6-2.3); Potassium 3.5 mmol/L (3.4-5.1); Sodium 140 mmol/L (137-145); Total Protein 6.4 g/dL (6.3-8.2)
[2025-06-14 14:21] LABS: NT-proBNP (BNP-Adult 18+) 389 pg/mL (<450); Troponin I 0.013 ng/mL (0.01-0.034)
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
--- NOTE | 2025-06-14 16:03 | EKG_ITS ---
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
[2025-06-14 16:13] LABS: Troponin I 0.014 ng/mL (0.01-0.034)
[2025-06-14] MEDS: ONDANSETRON 4 MG/2 ML INJ IV (16:37)
== END 2025-06-14 18:20 | disposition home or self-care (01) ==
PROVIDERS: Emergency Provider Emergency Medicine; PCP Family Medicine
DX: R07.9 Chest pain, unspecified (principal); I25.2 Old myocardial infarction; Z86.73 Personal history of transient ischemic attack (TIA), and cerebral infarction without residual deficits
CPT/HCPCS: 71045; 80053; 82550; 82962; 83690; 83735; 83880; 84484; 85025; 85610; 85730; 93005; 96374; 99284; J2405

== ENCOUNTER → 2025-06-18 11:29 | Outpatient (CLI) | payer MEDICARE, OTHER, SELFPAY ==
[2025-04-18 04:15] VITALS: BMI 26.8
--- NOTE | 2025-06-18 11:31 | DI.MRI.S_ITS ---
PROCEDURE: MR LUMBAR SPINE WO CON INDICATIONS: Seizures. Left foot drop TECHNIQUE: Noncontrast sagittal T1 spin echo and T2 fast echo, sagittal STIR, and T2 fast spin echo through the lumbar spine. In cases with scoliosis, additional coronal T2 fast spin echo may be performed. COMPARISON: [facility], CT, CT ABDOMEN PELVIS W CON, 04/17/2025, 23:10. [facility], MR, MR LUMBAR SPINE WO CON, 10/21/2023, 10:47. FINDINGS: Image quality: Excellent. Alignment and Curvature: There is normal bony alignment. Bones: Loss of height involving the L1 vertebral body compatible with compression fracture that results in approximately 40% loss of normal anterior vertebral body height. Mild marrow edema in the L1 vertebral body indicating compression fracture is late subacute. No kyphosis or retropulsed fragments associated with the L1 compression fracture. No acute vertebral body compression fractures. Spinal Cord: Conus medullaris terminates at the L1 level. Visualized cord demonstrates normal signal and size. Paraspinous Soft Tissues: No paravertebral masses. T12-L1: Loss of disc signal and mild loss of disc height. Mild, diffuse disc bulge. No central stenosis. No neural foraminal narrowing. No neural compression. L1-L2: Loss of disc signal and height. Mild, diffuse disc bulge. No central stenosis. No neural foraminal narrowing. No neural compression. L2-L3: Loss of disc signal and height. Moderate, diffuse disc bulge. Wylj-vb-ekmkmpua bilateral facet hypertrophy. Mild narrowing of the central canal. Mild right neural foraminal narrowing. No neural compression. L3-L4: Loss of disc signal and height. Moderate, diffuse disc bulge. [place]-wy-pkpwtggr bilateral facet hypertrophy. Mild to moderate narrowing of the central canal. Mild right and lopp-[id number] left neural foraminal narrowing. No neural compression. L4-L5: Loss of disc signal. Mild, diffuse disc bulge. Nchh-lh-vojkbwap bilateral facet hypertrophy. Mild to moderate narrowing of the central canal. Mild bilateral neural foraminal narrowing. No neural compression. L5-S1: Loss of disc signal. Mild to moderate bilateral facet hypertrophy. No central stenosis. No neural foraminal narrowing. No neural compression. IMPRESSION: Subacute L1 compression fracture. Multilevel degenerative disc disease. Multilevel facet arthropathy. No severe central canal stenosis. No severe neural foraminal stenosis. No neural compression. Dictated by: Josi Coughlin MD, PhD on 06/19/2025 at 10:50 Approved by: Josi Coughlin MD, PhD on 06/19/2025 at 10:55
--- NOTE | 2025-06-18 11:31 | DI.MRI.S_ITS ---
PROCEDURE: MR ANGIO HEAD WO CON INDICATIONS: Seizures. Left foot drop TECHNIQUE: Noncontrast axial 3-D [id number] MR angiogram, with 3-dimensional maximum intensity projection (MIP) reformats of the internal carotid arteries and posterior circulation then performed. COMPARISON: [facility], CT, CT ANGIO HEAD AND NECK, 05/01/2025, 10:38. FINDINGS: Image quality: Excellent. Anterior circulation: Intracranial internal carotid arteries demonstrate normal size and intraluminal flow signal. The flow within the paired anterior cerebral arteries is normal and symmetric. The flow within the middle cerebral arteries is normal and symmetric. The anterior communicating artery is seen. No stenoses, occlusions, or aneurysms. Posterior circulation: Visualized portions of the vertebral arteries demonstrate normal caliber, and join to form a normal appearing basilar artery. The flow within the posterior cerebral arteries is normal and symmetric. No stenoses, occlusions, or aneurysms. IMPRESSION: No significant intracranial arterial abnormalities. Dictated by: Gilbert Dill M.D. on 06/18/2025 at 14:08 Approved by: Gilbert Dill M.D. on 06/18/2025 at 14:11
--- NOTE | 2025-06-18 11:31 | DI.MRI.S_ITS ---
PROCEDURE: MR HEAD/BRAIN WO/W CON INDICATIONS: Seizures. Left foot drop TECHNIQUE: Noncontrast axial T1 spin echo, axial T2 fast spin echo, sagittal and axial FLAIR, coronal T2 fast spin echo, axial gradient echo, axial diffusion and ADC through the brain. After the administration of contrast, axial and coronal and sagittal T1 spin echo with fat saturation through the brain. COMPARISON: [facility], CT, CT HEAD/BRAIN WO CON, 02/19/2025, 14:06. [facility], CT, CT HEAD/BRAIN WO CON, 05/01/2025, 10:38. FINDINGS: Image quality: Excellent. CSF spaces: Basal cisterns are patent. No extra-axial fluid collections. Ventricles are normal in size and shape. Brain: No midline shift. No intracranial bleeds or masses. No abnormal intracranial enhancement. There is cerebral volume loss for age. There is periventricular white matter chronic small vessel ischemic change. The brainstem appears normal. Diffusion-weighted images demonstrate no acute infarct. No chronic ischemic insults. Normal intravascular flow voids are present. Skull and face: Structure within the anterior aspect of the right parotid gland measuring approximately 2.1 x 1.6 cm. Calvarial marrow is normal in signal. Orbits appear normal. Sinuses: Sinuses and mastoids appear clear. IMPRESSION: No acute or subacute infarct. No acute intracranial abnormalities or abnormal intracranial enhancement. Indeterminate lesion within the anterior aspect of the right parotid gland measuring up to 2.1 cm. Consider ultrasound for further evaluation. Age-related global volume loss and chronic microvascular ischemic changes are present. Dictated by: Gilbert Dill M.D. on 06/18/2025 at 14:01 Approved by: Gilbert Dill M.D. on 06/18/2025 at 14:08
== END ==
LOC: MRI 11:30
PROVIDERS: PCP Family Medicine; Referring Provider Student in an Organized Health Care Education/Training Program; Visit Provider Student in an Organized Health Care Education/Training Program
DX: M21.372 Foot drop, left foot (principal); R29.898 Other symptoms and signs involving the musculoskeletal system; R56.9 Unspecified convulsions; R26.9 Unspecified abnormalities of gait and mobility; M48.56XA Collapsed vertebra, not elsewhere classified, lumbar region, initial encounter for fracture; M51.369 Other intervertebral disc degeneration, lumbar region without mention of lumbar back pain or lower extremity pain; M48.061 Spinal stenosis, lumbar region without neurogenic claudication; M47.816 Spondylosis without myelopathy or radiculopathy, lumbar region; M47.817 Spondylosis without myelopathy or radiculopathy, lumbosacral region
CPT/HCPCS: 70544; 70553; 72148; A9579

== ENCOUNTER 2025-07-06 16:18 | Emergency (ER) | payer MEDICARE, OTHER, SELFPAY ==
[2025-04-18 04:15] VITALS: BMI 26.8
[2025-07-06] VITALS (15 sets, daily range): BP systolic 145–223; BP diastolic 71–111; PULSE 60–90; RESP 18; TEMP 36.5; O2SAT 96–98; BMI 27.1
--- NOTE | 2025-07-06 17:05 | ED.ABDPAIN ---
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 ORIGINAL SIG] Rx Instructions: As directed Veozah 45 mg tablet 45 mg PO DAILY (DME) 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 Misc See Rx Instructions .ROUTE .MEDSUPPLY Qty: 1 Patient Comments: [NO ORIGINAL SIG] Rx Instructions: As directed (DME) pen needle, diabetic [Easy Touch] 31 gauge x 5/16 needle See Rx Instructions .ROUTE .MEDSUPPLY Qty: 1200 Patient Comments: [NO ORIGINAL SIG] Rx Instructions: As directed Combivent Respimat 20-100 mcg/actuation mist 1 puff inhalation 4XD pantoprazole 40 mg tablet,delayed release (DR/EC) 40 mg PO BID Mounjaro 2.5 mg/0.5 mL pen injector SUBCUT Patient Comments: [NO ORIGINAL SIG] Referrals: Jose Alberto Parrish MD [Primary Care Provider, Family Practice] Stand Alone Forms: Patient Portal/API
--- NOTE | 2025-07-06 17:21 | DI.CT.S_ITS ---
PROCEDURE: CT ABDOMEN PELVIS W CON INDICATIONS: low back and epigastric abd pain; l1 fx and hernia TECHNIQUE: After the administration of intravenous contrast, axial sections acquired from the lung bases to the pubic symphysis. Coronal and sagittal reformats were performed. For radiation dose reduction, the following was used: automated exposure control, adjustment of mA and/or kV according to patient size. COMPARISON: [facility], CT, CT CHEST ABD PEL W CON, 05/01/2025, 10:38. [facility], CT, CT ABDOMEN PELVIS W CON, 04/17/2025, 23:10. FINDINGS: Quality: Diagnostic. Lower Chest: Trace pericardial effusion. Moderate coronary calcification. Abdomen: Liver: Hepatic cysts and additional lesions which are too small to characterize, unchanged.. Gallbladder and bile ducts: Cholecystectomy. Compensatory dilation of the common bile duct. Pancreas: Fatty infiltration of the pancreas and atrophy. Spleen: Unremarkable. Adrenal Glands: Unremarkable. Kidneys and Ureters: Unchanged calculus in the inferior pole of the left kidney. No hydronephrosis.. Stomach: Unremarkable. Bowel: No abnormal dilation. No wall thickening. Appendix not identified. Peritoneum: No free fluid. No free air. Pelvis: Reproductive: Hysterectomy.. Bladder: Unremarkable. Other: Lymphatic: No adenopathy. Vasculature: No aortic aneurysm. Mild scattered atherosclerotic calcification. Abdominal wall: Ventral hernia repair with mesh. No recurrent hernia.. Bones: No aggressive osseous lesion. Progressive height loss at L1 with approximately 60% residual height. Severe degenerative changes in the lumbar spine and lower thoracic spine, progressed from prior examination. IMPRESSION: No acute abnormality. Progressive height loss at L1. Additional chronic findings listed above. Dictated by: Ricardo Masters M.D. on 07/06/2025 at 19:27 Approved by: Ricardo Masters M.D. on 07/06/2025 at 19:33
[2025-07-06] MEDS: SODIUM CHLORIDE 0.9% 500 ML IV (17:34)
[2025-07-06] MEDS: ONDANSETRON 4 MG/2 ML INJ IV (17:35)
[2025-07-06 17:56] LABS: Add Manual Diff / Slide Review NO; Hematocrit 38.3 % (36-46); Hemoglobin 12.8 g/dL (12.0-16.0); Lymphocytes Absolute Auto 3900 /uL (1100-4500); Mean Corpuscular HGB Conc 33.5 % (30-36); Mean Corpuscular Hemoglobin 28.4 PG (26-34); Mean Corpuscular Volume 85.0 fL (80-100); Platelet Count 292 X10^3/uL (150-400)
[2025-07-06 18:05] LABS: Ictotest Urine Negative (Negative)
[2025-07-06 18:07] LABS: Lactate (Lactic Acid) 0.9 mmol/L (0.7-2.1)
[2025-07-06 18:08] LABS: Alanine Aminotransferase 19 IU/L (<35); Albumin 4.3 g/dL (3.5-5.0); Albumin Globulin Ratio 1.4 (1.0-2.8); Alkaline Phosphatase 60 U/L (38-126); Blood Urea Nitrogen 12 mg/dL (7-17); Calcium 10.0 mg/dL (8.4-10.2); Carbon Dioxide 26 mmol/L (22-32); Chloride 104 mmol/L (98-107); Estimated Glomerular Filt Rate > 60 mL/min (>60); Globulin 3.0 g/dL (1.7-4.1); Glucose 157 mg/dL (70-99); HEMOLYSIS < 15 (0-50); Lipase 39 U/L (23-300); Potassium 3.2 mmol/L (3.4-5.1); Sodium 139 mmol/L (137-145); Total Protein 7.3 g/dL (6.3-8.2)
[2025-07-06 18:11] LABS: Culture Indicated Urine Cult Not Indicated
[2025-07-06 18:33] LABS: Magnesium 1.3 mg/dL (1.6-2.3)
[2025-07-06] MEDS: MAGNESIUM SULFATE 2 GM/50 ML PIGGYBACK IV (19:41)
[2025-07-06] MEDS: POTASSIUM CHLORIDE 20 MEQ TAB PO (20:31)
== END 2025-07-06 21:33 | disposition home or self-care (01) ==
PROVIDERS: Physician Assistant; Emergency Provider Emergency Medicine; PCP Family Medicine
DX: E83.42 Hypomagnesemia (principal); R10.13 Epigastric pain; M54.50 Low back pain, unspecified; E87.6 Hypokalemia; K43.9 Ventral hernia without obstruction or gangrene; M48.56XD Collapsed vertebra, not elsewhere classified, lumbar region, subsequent encounter for fracture with routine healing
CPT/HCPCS: 36415; 74177; 80053; 81003; 81015; 83605; 83690; 83735; 85025; 96365; 96366; 96375; 99284; J1171; J2405; J3475; J7030; Q9967

== ENCOUNTER 2025-07-20 10:24 | Emergency (ER) | payer MEDICARE, OTHER, SELFPAY ==
[2025-04-18 04:15] VITALS: BMI 26.8
--- OUTSIDE RECORDS SUMMARY | 2025-06-17 16:46 | XMS_ITS | Continuity of Care Document ---
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 Name Role Phone TERRY PACE MD Primary Care Provider DOC, EMS Attending Provider DOC, EMS Referring Provider Care Teams Patient Care Team Team Status: Active Member Role/Relationship Status Dates TERRY PACE MD Primary Care Provider Active Patient Care Team Team Status: Inactive Member Role/Relationship Status Dates TERRY PACE MD Primary Care Provider Active Start: June 14, 2025 End: June 14, 2025 EMS DOC Attending Provider Active Start: No vember 2024 End: June 14, 2025 EMS DOC Referring Provider Active Start: No vember 2024 End: June 14, 2025 Chief Complaint and Reason for Visit Chief Complaint Admit Date CHEST PX June 14, 2025 12:45pm Allergies, Adverse Reactions, Alerts Allergen Type Severity Reaction Last Updated Verified Status Comments Penicillins Allergy Severe UNK April 17, 2025 5:10pm Yes Active Sulfa (Sulfonamide Antibiotics) Allergy Moderate Rash April 17, 2025 5:10pm Yes Active itching duloxetine HCl * Adverse Reaction Severe Cramps April 17, 2025 5:10pm Yes Active severe diarrhea erythromycin base Adverse Reaction Severe Nausea April 17, 2025 5:10pm Yes Active diarrhea nitrofurantoin Adverse Reaction Severe Diarrhea April 17, 2025 5:10pm Yes Active omeprazole Adverse Reaction Severe Dizziness April 17, 2025 5:10pm Yes Active near syncope tape Adverse Reaction Moderate Rash September 10, 2020 12:23pm No Active Sensitive to adhesive Social History Smoking Status Status Start Date End Date Date of Observa tion Never smoked tobacco (finding) September 17, 2022 8:10am Observation Status Observation Response Date of Response Living arrangement At home April 5:18pm Living Situation With spouse/s.o. April 5:18pm Psychiatric None September 16 023 11:40am Post traumatic stress disorder F ebruary 2022 11:40am Claustrophobia September 16 023 11:40am Legal Sex Female Sex Assigned At Female 1945 Family History Relationship Condition Age at Onset Recorded Date/T lissette Unknown Respiratory?Asthma Unknown September 17, 2022 8:10am Problems Active Problems Problem Diagnosis/Recorded Date Onset Date Stat us Migraine April 29, 2025 10:35pm Unknown Active Fracture of distal fibula March 25, 2014 5:30pm Unk nown Active Abdominal pain April 17, 2025 5:33pm Unknown Active Hypertension April 29, 2025 10:35pm Unknown Active Inactive/Resolved Problems Problem Diagnosis/Recorded Date Onset Date Stat us Chest pain December 06, 2024 11:06am Unknown Resolv ed Medications Medication Status Dose Units Route Directions Qty Days Refills S tart Date Stop Date End Date Reason(s) Instructions Adherence Cyclobenzap rine 10 MG tablet Discont inued 10 MG PO THREE TIMES A DAY as needed for Spasms Novemb er 2012 12:00a m February 18, 2017 10:00 am Atorvastati n (Lipitor) 40 MG tablet Active 40 MG PO BEDTIME Novemb er 2012 12:00a m Unknown Desonide, Micronized (Bulk) 1 GM powder Discont inued 1 GM MC Novemb er 2012 12:00a m Augus t 2013 4:19p m Nitroglycer in 1 EACH patch 24 hour Discont inued 1 EACH TOP DAILY Novemb er 2012 12:00a m Augus t 2013 4:18p m Docusate Calcium (Melquiades-Tin) 240 MG capsule Active 240 MG PO TWICE A DAY Brayan er 2012 12:00a m Unknown Hydrocodone -Acetaminop hen 1 EACH tablet Discont inued 1 EACH PO Q6H Novemb er 2012 12:00a m Novem rica 2013 3:19p m Aspirin (Aspir 81) 81 MG tablet,shaheed yed release (DR/EC) Active 81 MG PO DAILY Novemb er 2012 12:00a m Unknown Tramadol 50 MG tablet Active 50 MG PO Q6H as needed for Mild Pain Novemb er 2012 12:00a m Unknown Conjugated Estrogens (Premarin) 0.625 MG tablet Discont inued 0.625 MG PO DAILY Novemb er 2012 12:00a m Augus t 2013 4:19p m Nitroglycer in 0.4 MG tablet, sublingual Active 0.4 MG SL ONCE as needed for Chest Pain Novemb er 2012 12:00a m Unknown Hydroxyzine Hcl 25 MG tablet Discont inued 25 MG PO ONCE as needed for Swelling Novemb er 2012 12:00a m February 18, 2017 9:59a m Lisinopril 5 MG tablet Active 5 MG PO TWICE A DAY Novemb er 2012 12:00a m Unknown Zolpidem 5 MG tablet Discont inued 10 MG PO BEDTIME as needed for Insomnia Novemb er 2012 12:00a m [facility] am Metoprolol Succinate 25 MG tablet extended release 24 hr Active 25 MG PO ONCE Novemb er 2012 12:00a m Unknown Ipratropium -Albuterol (Combivent Inhaler) 200 PUFFS aerosol Discont inued 1 PUFFS INH FOUR TIMES DAILY b er 2012 12:00a m [facility] 2024 5:16p m Albuterol Sulfate (Proair Hfa) 8.5 GM HFA aerosol inhaler Active 8.5 GM IH ONCE as needed for Wheezing Novemb er 2012 12:00a m Unknown Levalbutero l Hcl (Xopenex) 0.31 MG/3 ML solution for nebulizatio n Discont inued 0.31 MG IH ONCE as [facility] 2024 5:16p m Eletriptan (Relpax) 40 MG tablet Active 40 MG PO ONCE as needed for Headache Novemb er 2012 12:00a m Unknown Clobetasol- Emollient 15 GM cream Discont inued 15 GM TP as needed for Dry Skin Novemb er 2012 12:00a m Novem rica 2013 3:18p m Lansoprazol e (Prevacid) 30 MG tablet,disi ntegrat, delay rel Active 30 MG PO TWICE A DAY No vemb er 2012 12:00a m Unknown Cetirizine (Zyrtec) 10 MG capsule Discont inued 10 MG PO DAILY Novemb er 2012 12:00a m Augus t 2013 4:20p m Lansoprazol e (Prevacid) 30 MG tablet,disi ntegrat, delay rel Discont inued 30 MG PO Novemb er 2012 12:00a m Augus t 2013 4:20p m Hydrocodone -Acetaminop hen 1 EACH tablet Discont inued 1 - 2 EACH PO Q6H as needed for Pain 15 0 March 24, 2014 11:00p m Febru lisa 2022 11:59 am Ondansetron Hcl (Zofran) 4 MG tablet Active 4 MG PO DAILY as needed for Nausea / Vomiting February 17, 2017 11:00p m Unknown Ascorbic Acid (Vitamin C) (Vitamin C With Nia Hips) 1,000 MG tablet Discont inued 1000 MG PO TWICE A DAY February 17, 2017 11:00p m [facility] 3:46p m Cholecalcif kyle (Vitamin D3) 1,000 UNIT capsule Active 8000 UNITS PO TWICE A DAY February 17, 2017 11:00p m Unknown Venlafaxine 75 MG capsule,ext ended release 24hr Discont inued 75 MG PO DAILY 2019 12:00a m [facility] 2024 5:16p m Melatonin-P yridoxine (Vit B6) (Melatonin 5 Mg Tablet) 1 EACH tablet Discont inued 5 MG PO DAILY as needed for Insomnia 2022 12:00a m [facility] 2024 5:16p m Naltrexone (Lotrexone) 4.5 mg capsule Active 4.5 MG PO DAILY December 05, 2024 11:00p m Unknown Gabapentin 600 mg tablet Active MG PO 2024 11:00p m Unknown Pantoprazol e 40 mg tablet,shaheed yed release (DR/EC) Discont inued MG PO 2024 11:00p m 2024 5:16p m Nitrofurant oin Monohyd/M-C ryst 100 mg capsule Discont inued PO 2024 11:00p m 2024 5:16p m Tirzepatide (Mounjaro) 2.5 mg/0.5 mL pen injector Discont inued MG SUBQ 2024 11:00p m 2024 5:16p m Fezolinetan t (Veozah) 45 mg tablet Active MG PO 2024 11:00p m Unknown Fenofibrate Nanocrystal lized (Tricor) 145 mg tablet Active MG PO 2024 11:00p m Unknown Ipratropium -Albuterol (Combivent Respimat) 20-100 mcg/actuati on mist Active INH 2024 11:00p m Unknown Levetiracet am 500 mg tablet Active MG PO 2024 11:00p m Unknown Insulin Aspart U-100 (Novolog Flexpen U-100 Insulin) 100 unit/mL (3 mL) insulin pen Active SUBQ Apr 11:00p m Unknown Insulin Glargine (Lantus Solostar U-100 Insulin) 100 unit/mL (3 mL) insulin pen Active UNIT SUBQ Apr 11:00p m Unknown Hydrocodone -Acetaminop hen 5-325 mg tablet Active TAB PO 0 2024 11:00p m Unknown Meloxicam 7.5 mg tablet Active 7.5 MG PO every day 2024 11:00p m Unknown Oxycodone 5 mg tablet Active MG PO 0 2024 11:00p m Unknown Immunizations Immunization Event Date Not Given Reason Dose Number Hot 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 No Brayan jim 2016 1:39pm Advance Directives Yes September 7:10am Advance Directives On File No Luis Angel lisa 2022 7:10am Insurance Providers Guarantor Elena Rodriguez Address [address] [facility] [address] Contact Info. Home Phone: Coverage Status Update:2024 Payer Group Member ID Coverage Type Subscriber Relationship to Subscriber Effective Date Expiration Date For Life [id number] null KELLEE Ko JENNIFER Id: [id number] [address] [facility] [address] Home Phone: Email: [email or web address] Family dependent Medicare A and B [id number] null Elena Love Jennifer Id: [id number] [address] [facility] [address] Home Phone: Email: DECLINED Self 2011 Encounters Encounter Location(s) Arrival/Admit Date Discharge/Departure Date Discharge/Departure Disposition Provider(s) Departed Clinical -Emergency Medical Services June 14, 2025 12:45pm June 14, 2025 11:59pm Discharged to home care or self care (routine discharge) EMS DOC
[2025-07-20] VITALS (14 sets, daily range): BP systolic 148–218; BP diastolic 62–92; PULSE 65–86; RESP 15–26; TEMP 36.1; O2SAT 94–98; BMI 24.3
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
[2025-07-20] MEDS: SODIUM CHLORIDE 0.9% 1,000 ML 1000 ML IV (13:10)
[2025-07-20 13:13] LABS: Add Manual Diff / Slide Review NO; Hematocrit 33.3 % (36-46); Hemoglobin 11.1 g/dL (12.0-16.0); Lymphocytes Absolute Auto 4300 /uL (1100-4500); Mean Corpuscular HGB Conc 33.3 % (30-36); Mean Corpuscular Hemoglobin 28.0 PG (26-34); Mean Corpuscular Volume 84.1 fL (80-100); Platelet Count 280 X10^3/uL (150-400)
[2025-07-20 13:38] LABS: Alanine Aminotransferase 16 IU/L (<35); Albumin 3.8 g/dL (3.5-5.0); Albumin Globulin Ratio 1.4 (1.0-2.8); Alkaline Phosphatase 54 U/L (38-126); Blood Urea Nitrogen 17 mg/dL (7-17); Calcium 9.8 mg/dL (8.4-10.2); Carbon Dioxide 26 mmol/L (22-32); Chloride 106 mmol/L (98-107); Estimated Glomerular Filt Rate > 60 mL/min (>60); Globulin 2.7 g/dL (1.7-4.1); Glucose 166 mg/dL (70-99); HEMOLYSIS < 15 (0-50); Lipase 27 U/L (23-300); Magnesium 1.7 mg/dL (1.6-2.3); Potassium 3.7 mmol/L (3.4-5.1); Sodium 139 mmol/L (137-145); Total Protein 6.5 g/dL (6.3-8.2)
[2025-07-20 15:42] LABS: Appearance Urine UA CLEAR; Bilirubin Urine UA NEGATIVE (NEGATIVE); Color Urine UA YELLOW; Glucose Urine UA NEGATIVE (Negative); Ketones Urine UA NEGATIVE (NEGATIVE); Leukocyte Esterase Urine UA NEGATIVE (NEGATIVE); Nitrite Urine UA NEGATIVE (Negative); Occult Blood Urine UA NEGATIVE (Negative); Protein Urine UA 2+ (Negative); Specific Gravity Urine UA 1.015 (1.000-1.035); Urobilinogen Urine UA 0.2 E.U./dL (0.2)
[2025-07-20 15:54] LABS: pH Urine UA 7.0 (4.5-8.0)
[2025-07-20 15:57] LABS: Culture Indicated Urine Cult Not Indicated
== END 2025-07-20 16:28 | disposition home or self-care (01) ==
PROVIDERS: Emergency Provider Physician Assistant; PCP Family Medicine
DX: E11.65 Type 2 diabetes mellitus with hyperglycemia (principal); K52.9 Noninfective gastroenteritis and colitis, unspecified; I10 Essential (primary) hypertension
CPT/HCPCS: 36415; 80053; 81001; 82962; 83690; 83735; 85025; 96360; 99284; J7030